=== PATIENT | male | born 1965 | race African-American/Black ===

== ENCOUNTER 2024-03-11 21:11 | Inpatient (IN) | payer OTHER, SELFPAY ==
--- NOTE | 2024-03-11 | ECG_ITS ---
Test Reason : TACARDYA Blood Pressure : / mmHG Vent. Rate : 124 BPM Atrial Rate : 124 BPM P-R Int : 154 ms QRS Dur : 076 ms QT Int : 316 ms P-R-T Axes : 031 013 038 degrees QTc Int : 453 ms Sinus tachycardia Otherwise normal ECG No previous ECGs available Referred By: Generic ED Physician Electronically Signed By:RONNIE MARES MD
--- NOTE | ~2024-03-11 | XR_ITS ---
EXAMINATION: XR FOOT, RIGHT CLINICAL INFORMATION: right foot pain, ?infection COMPARISON: None available. TECHNIQUE: AP, lateral, and oblique views of the right foot. FINDINGS: Soft tissue irregularity of the great toe with subtle cortical erosion and irregularity at the medial aspect of the tuft and distal phalanx concerning for osteomyelitis. No fracture or malalignment. Heel spur. XR/XR foot RT min 3V IMPRESSION: Soft tissue irregularity of the great toe with subtle cortical erosion of the tuft and distal phalanx concerning for osteomyelitis. Electronically signed by: Oswaldo Abraham MD 03/11/2024 10:29 PM [facility]
--- NOTE | ~2024-03-11 | US_ITS ---
EXAMINATION: US NONINVASIVE ASSESSMENT OF THE BILATERAL LOWER EXTREMITY WITH ARTERIAL DUPLEX AND ANKLE BRACHIAL INDICES (ABIS) CLINICAL INFORMATION: Diabetic foot infection COMPARISON: None available. TECHNIQUE: Duplex Doppler techniques with waveform analysis and measurement of velocities in the common femoral, profunda femoris, superficial femoral, popliteal and tibial arteries were performed. In addition, ankle pulse volume recordings, ankle pressure measurements and ankle brachial indices were obtained of the bilateral lower extremity arterial system. The study was performed only at rest. FINDINGS: NONINVASIVE ASSESSMENT OF THE ARTERIES OF BILATERAL LOWER EXTREMITIES WITH ABIs: RIGHT LEG: Ankle-brachial index: 1.11 Ankle PVR: Normal LEFT LEG: Ankle-brachial index: 1.15 Left ankle PVR: Normal JENNI Reference: 0.9 - 1.4 = normal - no significant arterial disease 0.7 - 0.89 = mild peripheral arterial disease 0.51 - 0.69 = moderate peripheral arterial disease 0.50 = severe peripheral arterial disease RIGHT LOWER EXTREMITY DUPLEX ULTRASOUND: Common femoral artery: 119.2 cm/s. Diastolic flow reversal: Present Profunda femoris artery: 87.5 cm/s. Diastolic flow reversal: Present Superficial femoral artery (proximal): 110.8 cm/s. Diastolic flow reversal: Present Superficial femoral artery (mid): 150.6 cm/s. Diastolic flow reversal: Present Superficial femoral artery (distal): 122.2 cm/s. Diastolic flow reversal: Present Popliteal artery (proximal): 123.2 cm/s Diastolic flow reversal: Present Popliteal artery (distal): 93 cm/s Diastolic flow reversal: Present Anterior tibial artery: 77.6 cm/s Diastolic flow reversal: Present Peroneal artery: 49.6 cm/s Diastolic flow reversal: Present Posterior tibial artery: 146.9 cm/s Diastolic flow reversal: Present LEFT LOWER EXTREMITY DUPLEX ULTRASOUND: Common femoral artery: 105.1 cm/s. Diastolic flow reversal: Present Profunda femoris artery: 77 cm/s. Diastolic flow reversal: Present Superficial femoral artery (proximal): 89.1 cm/s. Diastolic flow reversal: Present Superficial femoral artery (mid): 119.3 cm/s. Diastolic flow reversal: Present Superficial femoral artery (distal): 106.7 cm/s. Diastolic flow reversal: Present Proximal popliteal artery: 104.2 cm/s Diastolic flow reversal: Present Distal popliteal artery: 85.4 cm/s Diastolic flow reversal: Present Anterior tibial artery: 103.8 cm/s Diastolic flow reversal: Present Peroneal artery: 66.8 cm/s Diastolic flow reversal: Present Posterior tibial artery: 91.2 cm/s Diastolic flow reversal: Present US/US arterial duplex BI w/ JENNI IMPRESSION: The JENNI on the right is 1.11 and on the left is 1.15. There is no PVR evidence to suggest hemodynamically significant arterial disease. There is no sonographic evidence of hemodynamically significant disease. Electronically signed by: Anil Kingston MD 03/14/2024 01:17 AM EST
--- NOTE | ~2024-03-11 | US_ITS ---
EXAMINATION: US RETROPERITONEAL LIMITED (RENAL ONLY) CLINICAL INFORMATION: LAMAR. COMPARISON: None available. TECHNIQUE: Real-time imaging of the kidneys. FINDINGS: RIGHT KIDNEY: 12.5 x 5.6 x 6.2 cm (SAG x AP x TRV). The kidney is normal in size, contour, and echogenicity. Renal cortical thickness is normal. No calculi or focal parenchymal lesions. No hydronephrosis. Trace amount of free fluid around the kidney. LEFT KIDNEY: 11.7 x 7.1 x 5.9 cm (SAG x AP x TRV). The kidney is normal in size, contour, and echogenicity. Renal cortical thickness is normal. No calculi or focal parenchymal lesions. No hydronephrosis. Trace amount of free fluid around the kidney. Nonspecific US/US renal BI IMPRESSION: 1. No ultrasound evidence of renal obstruction or hydronephrosis. 2. Trace amount of free fluid around the kidneys nonspecific. Electronically signed by: Ronnie Gilman MD 03/13/2024 03:44 PM [facility]
--- NOTE | ~2024-03-11 | CT_ITS ---
EXAMINATION: CT FOOT WITH CONTRAST, RIGHT CLINICAL INFORMATION: Foot infection, osteomyelitis. COMPARISON: X-ray 03/11/2024. TECHNIQUE: Axial imaging. Sagittal and coronal reconstructions. [address] examination was performed using dose optimization techniques as appropriate, variously including the following: *Automated exposure control *Adjustment of mA and/or kV according to patient size (this includes techniques or standardized protocols for targeted exams where dose is matched to indication/reason for exam; i.e. extremities or head) *Use of iterative reconstruction technique DLP: 167 mGy-cm FINDINGS: Plantar soft tissue irregularity/ulceration of the plantar aspect of the distal first toe. This foci of air in the soft tissues. There is soft tissue edema/cellulitis. No abscess is seen. There is cortical bony irregularity/erosive changes in the first distal phalanx, suspicious for osteomyelitis. There is foci of air seen along the dorsal aspect of the fifth toe. No definitive erosive or destructive changes are identified in the underlying bone. There is a circumferential soft tissue swelling with edema/cellulitis in the skin and subcutaneous/soft tissues. There is a more confluent hypoattenuated focus along the dorsal skin/soft tissues of the foot, measuring 5.3 x 0.8 x 2.6 cm (transverse, AP, length) (image 9:89, 7:94). Similar focus seen in the plantar surface of the foot measuring 3.6 cm transverse, 0.6 cm AP, 2.5 cm in length. This could represent a soft tissue bleb, inflammatory or infectious process. Clinically correlate. Second tarsometatarsal joint osteoarthritis. No acute fracture is seen. Plantar calcaneal spur. Medial talar dome subchondral cysts and sclerosis, could reflect sequela of degenerative changes versus osteochondral lesion. No loose unstable osteochondral fragments are seen. Hypodense focus in the deep soft tissues of the plantar midfoot, measuring approximately 3.5 cm transverse, 0.7 cm AP, 3.3 cm in length (series 9:[id number], series 7:38-52). This is nonspecific in nature, could represent fluid in this region, inflammatory or infectious process. An abscess in the appropriate clinical circumstance cannot be excluded. CT/CT foot RT w IV con IMPRESSION: * Soft tissue irregularity of the distal great toe, with air in the soft tissues. Abnormal findings in the first distal phalanx, suspicious for osteomyelitis. * Foci of air along the dorsal aspect of the fifth toe. No definitive osteomyelitis is evident by CT in the underlying bones. * Extensive soft tissue swelling and subcutaneous edema/cellulitis, more prominent in the dorsal aspect of foot. * Confluent hypodense focus in the dorsal soft tissues along the skin measuring up to 5.3 cm, in the plantar soft tissues along the skin measuring up to 3.6 cm. Differential considerations include soft tissue bleb, inflammatory or infectious process. * Hypodense focus in the deep tissues/interfascial plane of the midfoot measuring 2.5 x 0.7 x 3.3 cm. Differential considerations include fluid, inflammatory, infectious process, abscess. Clinically correlate. The report will be called to the ordering clinician by a [facility] Physician Academic Services Coordinator. * Medial talar dome findings could reflect degenerative changes versus osteochondral lesion. Electronically signed by: Elias Emery MD 03/12/2024 12:56 PM [facility]
[2024-03-11 21:14] VITALS: BP 167/107; PULSE 141; RESP 20; TEMP 36.4; O2SAT 98; BMI 33.4
[2024-03-11 21:42] LABS: MANUAL DIFF FLAG NO
[2024-03-11 21:44] LABS: Basophils Absolute Auto 0.2 X10*3/uL (0.0-0.2); Basophils Percent Auto 0.4 % (0-2); Hematocrit 35.4 % (42.0-52.0); Hemoglobin 12.4 g/dl (14.0-18.0); Imm Gran Abs Auto 1.64 X10*3/uL (0.00-0.03); Imm Gran Pct Auto 3.9 % (0.0-0.4); Lymphocytes Absolute Auto 1.4 X10*3/uL (1.2-4.9); Lymphocytes Percent Auto 3.4 % (20-40); Mean Corpuscular Hemoglobin 27.3 pg (27.0-33.0); Mean Platelet Volume 8.9 fL (9.4-12.4); Monocytes Absolute Auto 2.5 X10*3/uL (0.1-1.2); Monocytes Percent Auto 6.1 % (2-11); Neutrophils Absolute Auto 35.9 x10*3/uL (2.0-8.3); Neutrophils Percent Auto 86.2 % (45-73); Platelet Count 487 X10*3/uL (160-400); Red Blood Count 4.54 X10*6/uL (4.60-5.80); Red Cell Distribution Width 12.9 % (11.0-16.0); SCAN SMEAR FLAG 1
[2024-03-11 21:48] LABS: White Blood Count 41.6 X10*3/uL (4.8-10.8)
[2024-03-11 21:50] LABS: INTERNATIONAL NORM RATIO 1.3 (0.9-1.1); Prothrombin Time 15.6 SEC (10.9-12.4)
[2024-03-11] MEDS: Lactated Ringers 1,000 ML 999 ML IV (21:57)
[2024-03-11] MEDS: Acetaminophen 325 MG TABLET 650 MG PO (22:00)
[2024-03-11 22:03] VITALS: BP 161/85; PULSE 110; RESP 15; TEMP 37.1; O2SAT 99
[2024-03-11 22:06] LABS: Alanine Aminotransferase 15 U/L (0-40); Alkaline Phosphatase 261 U/L (39-117); Anion Gap 17 (12-20); Aspartate Amino Transferase 44 U/L (5-37); Bilirubin Total 2.1 mg/dL (0.0-1.0); Blood Urea Nitrogen 21 mg/dL (9-16); Calcium 9.5 mg/dL (8.4-10.2); Carbon Dioxide 25 mmol/L (22-29); Chloride 89 mmol/L (96-108); Creatinine Clr Calc Pharmacy 68.6; Estimated Glomerular Filt Rate 56; Glucose Random 418 mg/dL (60-115); Sodium 127 mmol/L (135-145); Total Protein 7.5 g/dL (6.5-8.0)
[2024-03-11 22:07] LABS: Lactic Acid 2.4 mmol/L (0.5-2.0)
[2024-03-11 22:08] LABS: Troponin-I High Sensitivity 7.1 ng/L (<3.5-35.0)
[2024-03-11] MEDS: Piperacillin Sodium/Tazobactam 3.375 GM in 0.9 % Sodium Chloride 50 ML IV (22:08)
--- NOTE | 2024-03-11 22:11 | PC.NURSE ---
pt brought back from waiting room, a&ox4, respirations even and unlabored. pt reporting x1 week ago he developed a blister on her right toe, reports as the week went on his foot started to become swollen. within the last 3 days, he developed increased redness, swelling and pain with walking. on arrival to room, pt noted to have bandage on the right toe, bandage noted to have yellow drainage. bandage removed, foot noted to have foul odor, drainage and infected skin, foot noted to be red, swollen and with a split skin on the bottom. pt reports pain to touch. pedal pulses noted with doppler. at bedside to assess pt, no sepsis alert called. 18G placed in left ac and 20G placed in right hand, labs obtained, vss. Fluids and antibiotics administered per jun.
--- NOTE | 2024-03-11 22:13 | MHC.EDTECH ---
Patient ekg taken and was read by Provider ,2nd sets of blood culture drawn and sent to lab .
--- NOTE | 2024-03-11 22:15 | ED.EXTPRO ---
HPI - Extremity Problem General Chief complaint: Extremity Problem Stated complaint: severe R ft infect Time Seen by Provider: 03/11/24 21:40 Source: patient Mode of arrival: ambulatory Limitations: no limitations History of Present Illness ED Provider: KATHLEEN WILKINS Narrative: 59 yo male no PMH but he had not gone to the doctors in years - he tells me his R foot has a chronic bunion on it. He states it hurts to walk about a week ago he noted he had a blister on the R toe and it has just worsened over the past few days. He denies n/v fevers. He states it started to hurt a lot. He denies puncture wounds, he tells me he can feel his feet. He states he does not have DM MD Complaint: extremity pain Onset (ago): week(s) (1) Pain Consistency: constant Location: right and lower extremity Quality: aching Radiation: proximal Relieving factors: immobilization Exacerbating factors: weight bearing, walking and palpation Associated symptoms: other (notes he has open wounds on the feet) Related Data Allergies Allergy/AdvReac Type Severity Reaction Status Date / Time No Known Allergies Allergy Verified 03/11/24 21:17 Review of Systems Review of Systems: Constitutional : No Fever, No Chills ENT/Mouth : No Ear Pain, No Hoarseness, No sore throat Eyes: No Eye Pain, No Swelling, No Redness, No Foreign Body Cardiovascular : No Chest Pain, No SOB Respiratory : No Cough, No Dyspnea Gastrointestinal : No Nausea, No Vomiting, No Diarrhea, No abdominal Pain Genitourinary : No Dysuria, No Hematuria Musculoskeletal : positive joint pain, No Myalgias, No Joint Swelling Skin : pos Skin lacerations, pos rash Neuro : No Weakness, No Numbness, No Loss of Consciousness, No Dizziness, No Headache Psych : No Anxiety/Panic, No Depression Heme/Lymph: no easy bruising, no Lymphadenopathy Endocrine : No Polyuria, No Polydipsia All other systems reviewed and are negative [facility]LY [facility] Past Medical History Medical History (Updated 03/11/24 @ 22:53 by Matt Rodriguez MD) No pertinent past medical history Social History Social History Household Members: None Housing: Apartment Do you presently have visiting nurse or other home services: No Alcohol intake: current Patient Tobacco Use Status: Current everyday Tobacco user Tobacco use type: Cigarette e-Cigarette/Vaping Use: Never Used Substance Use Type: Marijuana Physical Exam Vital Signs: Vital Signs: Last Vital Signs Temp 98.6 F 03/12/24 01:00 Pulse 92 03/12/24 01:00 Resp 16 03/12/24 01:00 BP 132/70 03/12/24 01:00 Pulse Ox 96 03/12/24 01:00 O2 Del Method Room Air 03/12/24 01:00 BMI result Body Mass Index 33.4 Appearance: Alert. Oriented X3. No acute distress. Eyes: Pupils equal, round and reactive to light. ENT: Pharynx normal. Neck: Normal inspection. Neck supple. CVS: tachycardic heart rate and rhythm. Pulses normal. Respiratory: No respiratory distress. Breath sounds normal. Abdomen: Soft and nontender. Skin: Skin warm and dry. Normal skin color. Normal skin turgor. Extremities: No lower extremity edema. R foot has skin sloughed R great toe no bone exposed, foot itself is red hot and swollen I can doppler his DP pulse, he has no crepitus and pain is not out of proportion there are slits on the bottom of the foot that are weeping SS fluid. There are dark areas on great toe, bottom of foot. He has no extension up the calf Neuro: Oriented X 3. No motor deficit. No sensory deficit. Medications Administered Generic Name Dose Route Start Last Admin Trade Name Freq PRN Reason Stop Dose Admin Enoxaparin Sodium 40 mg 03/11/24 23:00 03/11/24 22:59 Enoxaparin Sodium 40 Mg/0.4 Ml Syringe SUBCUT 40 mg Q24H JERI Administration Insulin Glargine 20 unit 03/11/24 22:50 03/11/24 22:59 Insulin Glargine,Hum.Rec.Anlog 100 Unit/Ml 10 Ml Vial SUBCUT 20 unit BEDTIME JERI Administration Melatonin 6 mg 03/11/24 22:47 03/12/24 01:54 Melatonin 3 Mg Tablet PO 6 mg BEDTIME PRN Administration Insomnia Sodium Chloride 3 ml 03/12/24 00:00 03/12/24 00:00 0.9 % Sodium Chloride Flush 3 Ml Syringe IVFLUSH Not Given QSHIFT JERI Discontinued Medications Generic Name Dose Route Start Last Admin Trade Name Freq PRN Reason Stop Dose Admin Acetaminophen 650 mg 03/11/24 21:47 03/11/24 22:00 Acetaminophen 325 Mg Tablet PO 03/11/24 21:48 650 mg ONCE ONE Administration Piperacillin Sod/Tazobactam 50 mls @ 100 mls/hr 03/11/24 21:47 03/11/24 22:38 Sod 3.375 gm/ Sodium Chloride IV 03/11/24 22:16 Infused ONCE ONE Infusion Vancomycin HCl 2,000 mg in 500 mls @ 250 mls/hr 03/11/24 21:47 03/12/24 00:59 Vancomycin/Ns IV 03/11/24 23:46 Infused ONCE ONE Infusion Lactated Ringer's 1,000 mls @ 999 mls/hr 03/11/24 21:47 03/11/24 23:56 Lr IV 03/11/24 22:47 Infused .Q1H1M ONE Infusion Clindamycin Phosphate 900 mg in 50 mls @ 50 mls/hr 03/11/24 21:52 03/11/24 23:37 Cleocin IV 03/11/24 22:51 Infused ONCE ONE Infusion Piperacillin Sod/Tazobactam 100 mls @ 200 mls/hr 03/11/24 04:00 03/11/24 23:41 Sod 4.5 gm/ Sodium Chloride IV Not Given Q6H JERI Influenza Virus Vaccine 0.5 ml 03/12/24 01:26 03/12/24 01:54 Flu Vacc [id number](6mos Up)/Pf 0.5 Ml Syringe IM 03/12/24 01:27 0.5 ml .ONCE ONE Administration Medical Decision Making Medical Decision Making MDM Narrative: 59 yo male with no PMH because he doesn't go to the doctor who comes in with c/o R bunion pain that worsened over a week.... now with his foot appearing very infected. He has dopplerable pulses, he has no crepitu and he is not in pain which makes me think necrotizing infection is less. He likely has cellulitis, osteo, abscess but I am not going to drain his foot he needs to see surgery for this. I have ordered labs, cultures, infl markers, CPK and lactic acid he was started on fluids and I plan on starting bs abx including vanco zosyn clindamycin. He needs admission and close monitoring of his foot for progression. I will let surgery know about the admit. Differential Diagnosis Differential Diagnoses: The differential diagnosis associated with the presentation includes osteo, cellulitis, abscess Admission/Observation Consideration of admission/observation: Escalation of care including admission/observation considered admit for further work up Consult Healthcare Provider Management of the patient was discussed with: Hospitalist will admit Lab Data MDM Lab Attestation statement: I reviewed the patient's lab results. Na corrects to 132 03/11/24 21:36 03/11/24 21:36 Labs: Lab Results 03/11/24 03/11/24 Range/Units 21:36 22:08 WBC 41.6 H* (4.8-10.8) X10*3/uL RBC 4.54 L (4.60-5.80) X10*6/uL Hgb 12.4 L (14.0-18.0) g/dl Hct 35.4 L (42.0-52.0) % MCV 78.0 L (80.0-98.0) fL MCH 27.3 (27.0-33.0) pg MCHC 35.0 (31.0-36.0) g/dl RDW 12.9 (11.0-16.0) % Plt Count 487 H (160-400) X10*3/uL MPV 8.9 L (9.4-12.4) fL Immature Gran % (Auto) 3.9 H (0.0-0.4) % Neut % (Auto) 86.2 H (45-73) % Lymph % (Auto) 3.4 L (20-40) % [place] % (Auto) 6.1 (2-11) % Eos % (Auto) 0.0 (0-4) % Baso % (Auto) 0.4 (0-2) % Lymph # (Auto) 1.4 (1.2-4.9) X10*3/uL [place] # (Auto) 2.5 H (0.1-1.2) X10*3/uL Eos # (Auto) 0.0 (0.0-0.4) X10*3/uL Baso # (Auto) 0.2 (0.0-0.2) X10*3/uL Abs Immat Gran (auto) 1.64 H (0.00-0.03) X10*3/uL Absolute Neuts (auto) 35.9 H (2.0-8.3) x10*3/uL Absolute Nucleated RBC 0.000 (0.0-0.012) X10*3/uL Nucleated RBC % (auto) 0.0 (0.0-0.2) /100WBC ESR 85 H (0-15) MM/HR PT 15.6 H (10.9-12.4) SEC INR 1.3 H (0.9-1.1) Sodium 127 L (135-145) mmol/L Potassium 4.0 (3.3-5.1) mmol/L Chloride 89 L (96-108) mmol/L Carbon Dioxide 25 (22-29) mmol/L Anion Gap 17 (12-20) BUN 21 H (9-16) mg/dL Creatinine 1.31 (0.5-1.4) mg/dL Estim Creat Clear Calc 68.6 Estimated GFR 56 Random Glucose 418 H* (60-115) mg/dL Lactic Acid 2.4 H* (0.5-2.0) mmol/L Calcium 9.5 (8.4-10.2) mg/dL Total Bilirubin 2.1 H (0.0-1.0) mg/dL AST 44 H (5-37) U/L ALT 15 (0-40) U/L Alkaline Phosphatase 261 H (39-117) U/L Total Creatine Kinase 71 (38-174) U/L Troponin I High Sens 7.1 (<3.5-35.0) ng/L C-Reactive Protein 40.24 H (< or = 0.50) mg/dL Total Protein 7.5 (6.5-8.0) g/dL Albumin 3.0 L (3.5-5.0) g/dL Independent Interpretation I performed an independent interpretation of an: EKG and Plain X-Ray (osteo) Interpretation: Rate: 124 Rhythm: sinus tachycardia [place]: normal Normal P waves. Normal SATINDER. Normal QRS complex. ST T wave : normal no TANGELA qTC: 453 prior studies: no acute ischemia The study has been interpreted contemporaneously by me. . Radiology Impression Discussion of test interpretation with radiology: I have reviewed the radiologist's reading. Discharge Plan Discharge Clinical Impression: Abscess Cellulitis Qualifiers: Site of cellulitis: extremity Site of cellulitis of extremity: lower extremity Laterality: right Qualified Code(s): L03.115 - Cellulitis of right lower limb Patient Disposition: Admitted As Inpatient Interventions: Admission Worksheet (ED) Last Done: 03/12/24 00:14 Discharge Date/Time: 03/12/24 01:28
[2024-03-11 22:25] LABS: C Reactive Protein 40.24 mg/dL (< or = 0.50)
[2024-03-11 22:32] LABS: Erythrocyte Sedimentation Rate 85 MM/HR (0-15)
[2024-03-11] MEDS: vancomycin/NS 2,000 MG/500 ML PLAST..BAG 250 MG IV (22:41)
--- NOTE | 2024-03-11 22:48 | PM.IMHP ---
History of Present Illness Date of Service: 03/11/24 Chief Complaint: Right foot infection This is a 59-year-old male with no pertinent past medical history and not on prescription medications who presents to the emergency department for evaluation of right foot infection. Patient states he does not take any prescription medications and has not seen a doctor in many years. He 1st noticed redness and blister over his right foot and great toe about 10 days ago. Subsequently noticed that the redness was worsening and the right foot had multiple blisters which burst. Eventually there was purulent drainage from the right foot along with warmth and erythema. States he has pain with ambulation. No fever, chills, chest pain, palpitations, nausea, vomiting, abdominal pain, shortness of breath, changes in urinary or bowel habits. In the emergency department, x-ray concerning for osteomyelitis. Blood glucose found to be elevated Review of Systems Constitutional: Constitutional: Reports no additional constitutional complaints Cardiovascular: Cardiovascular: Reports no additional cardiovascular complaints Respiratory: Respiratory: Reports no additional respiratory complaints Gastrointestinal: Gastrointestinal: Reports no additional gastrointestinal complaints Genitourinary: Genitourinary: Reports no additional male genitourinary complaints Musculoskeletal: Musculoskeletal: Reports arthralgias and Reports joint swelling [facility] Medical History (Updated 03/11/24 @ 22:53 by aMtt Rodriguez MD) No pertinent past medical history Pertinent family history: No family history of early CAD Social History Alcohol intake: current Smoked in Last 30 Days: Yes Use of substances other than those prescribed or required for medical reasons: No Advance Directives: No Advance Directives Information Provided: No Meds Allergies Allergy/AdvReac Type Severity Reaction Status Date / Time No Known Allergies Allergy Verified 03/11/24 21:17 Active Medications: Current Medications Vancomycin HCl (Vancomycin/Ns) 2,000 mg in 500 mls @ 250 mls/hr IV ONCE ONE Stop: 03/11/24 23:46 Last Admin: 03/11/24 22:41 Dose: 250 mls/hr Clindamycin Phosphate (Cleocin) 900 mg in 50 mls @ 50 mls/hr IV ONCE ONE Stop: 03/11/24 22:51 Physical Exam Vital Signs and Narrative: Vital Signs: Last Vital Signs Temp 98.8 F 03/11/24 22:03 Pulse 110 H 11/22/24 22:03 Resp 15 03/11/24 22:03 BP 161/85 H 03/11/24 22:03 Pulse Ox 99 03/11/24 22:03 O2 Del Method Room Air 03/11/24 22:03 BMI result Body Mass Index 33.4 Middle-aged male lying in bed in no distress Neck supple, no JVD Regular rate and rhythm, S1-S2 heard Regular breath sounds bilaterally, no wheezing or crackles appreciated Abdomen soft nontender, no guarding, no rigidity Patient is awake, alert and oriented to self, place, time and person ; no focal motor deficit Psych: Normal mood Right foot with erythema, purulent drainage, warmth (as pictured below). No crepitus Skin: Other: Results Labs 03/11/24 21:36 03/11/24 21:36 Labs: Laboratory Results - last 24 hr 03/11/24 03/11/24 21:36 22:08 MCV 78.0 L MCH 27.3 MCHC 35.0 RDW 12.9 Plt Count 487 H MPV 8.9 L Immature Gran % (Auto) 3.9 H Neut % (Auto) 86.2 H Lymph % (Auto) 3.4 L [place] % (Auto) 6.1 Eos % (Auto) 0.0 Baso % (Auto) 0.4 Lymph # (Auto) 1.4 [place] # (Auto) 2.5 H Eos # (Auto) 0.0 Baso # (Auto) 0.2 Abs Immat Gran (auto) 1.64 H Absolute Neuts (auto) 35.9 H Absolute Nucleated RBC 0.000 Nucleated RBC % (auto) 0.0 ESR 85 H PT 15.6 H INR 1.3 H Anion Gap 17 Estim Creat Clear Calc 68.6 Estimated GFR 56 Random Glucose 418 H* Lactic Acid 2.4 H* Calcium 9.5 Total Bilirubin 2.1 H AST 44 H ALT 15 Alkaline Phosphatase 261 H Total Creatine Kinase 71 Troponin I High Sens 7.1 C-Reactive Protein 40.24 H Total Protein 7.5 Albumin 3.0 L Imaging Radiologist's Impressions: Impressions Foot X-Ray 03/11/24 21:45 IMPRESSION: Soft tissue irregularity of the great toe with subtle cortical erosion of the tuft and distal phalanx concerning for osteomyelitis. Electronically signed by: Oswaldo Abraham MD 03/11/2024 10:29 PM [facility] Assessment and Plan (1) Sepsis: Status: Acute (2) Foot osteomyelitis, right: Status: Acute (3) Cellulitis: Qualifiers: Laterality: right Site of cellulitis: extremity Site of cellulitis of extremity: lower extremity Qualified Code(s): L03.115 - Cellulitis of right lower limb Status: Acute (4) Hyperglycemia: Status: Acute Plan This is a 59-year-old male with no pertinent past medical history and not on prescription medications who presents to the emergency department for evaluation of right foot infection. #. Severe sepsis due to right foot purulent cellulitis and osteomyelitis: Resuscitated with IV crystalloids. Lactic acid and blood culture obtained. Initiating empiric IV vancomycin and Zosyn. Obtaining CT of the right foot to delineate underlying anatomy. General surgery and Infectious Disease consult pending #. Acute lactic acidosis due to sepsis #. Hyperglycemia: Initiating basal plus insulin regimen. A1c pending #. Pseudohyponatremia due to hyperglycemia Med rec pending DVT prophylaxis: Lovenox Full code Admit as inpatient and will require two night minimum hospital stay for IV antibiotics (as above), which is not possible in a lesser acute setting. Specialist consult pending Quality Stroke Does the patient have a stroke diagnosis?: No VTE Prior VTE?: No VTE Risk Level:: Medical - moderate - high VTE Device Contraindication: Treatment Not Indicated VTE Drug Contraindication: N/A - Med Ordered
[2024-03-11] MEDS: Clindamycin Phosphate/D5W 900 MG/50 ML PIGGYBACK 50 MG IV (22:55)
[2024-03-11] MEDS: Insulin Glargine,Hum.rec.anlog 100 UNIT/ML 10 ML VIAL 20 UNIT SUBCUT (22:59)
[2024-03-11] MEDS: Enoxaparin Sodium 40 MG/0.4 ML SYRINGE SUBCUT (22:59)
[2024-03-11 23:41] LABS: Reflex Lactate? Lactic Acid Added
[2024-03-12] VITALS (9 sets, daily range): BP systolic 119–162; BP diastolic 66–86; PULSE 87–95; RESP 16–20; TEMP 36.1–37.3; O2SAT 94–97; BMI 32.5
[2024-03-12 00:15] LABS: ~Lactic Acid-LAB USE ONLY 1.3 mmol/L (0.5-2.0)
[2024-03-12] MEDS: Melatonin 3 MG TABLET 6 MG PO (01:54)
[2024-03-12] MEDS: Flu Vacc TS2024-25(6mos up)/PF 0.5 ML SYRINGE IM (01:54)
[2024-03-12 03:19] LABS: Estimated Average Glucose 289 mg/dL; Hemoglobin A1C 302.5084 umol/L; Hemoglobin A1c % 11.7 % (<6.0); Total Hemoglobin (HGBA1C) 2912.5258 umol/L
[2024-03-12] MEDS: Piperacillin Sodium/Tazobactam 4.5 GM in 0.9 % Sodium Chloride 100 ML IV ×4 (03:53→21:31)
--- NOTE | 2024-03-12 06:38 | PHA.PROG ---
Admission Date/Time: March 11, 2024 22:47 Indication: Sepsis Weight in k.9 kg Adjusted body weight in Kg: [place] body weight in Kg: Obesity Dosing Indication % IBW: Serum Creatinine - Last 168 Hours 03/11/24 21:36 Creatinine 1.31 Estimated CrCl and GFR - Last 168 Hours 03/11/24 21:36 Estim Creat Clear Calc 68.6 Estimated GFR 56 Vancomycin Loading Dose: 2000 mg Current Vancomycin Dosing Regimen: 750 mg q12h Vancomycin Monitoring using AUC goal of 400 - 600 range with trough as surrogate marker: 433 mg/L Date and Time for next Vancomycin Level to be drawn: 03/13/24 @0900 Pharmacist Comments on Vancomycin Plan: Will start a regimen of 750mg q12h today, projected steady state trough is 14.7 mg/L. Level before 4th dose. Vancomycin dosing will take advantage of [employer] as a clinical decision support tool that uses Bayesian modeling to calculate individual patient's pharmacokinetic parameters and forecast the patient's drug concentration time course with the target goal AUC 24 range of 400 - 600 mg/L/hr.
[2024-03-12 07:58] LABS: Glucose, Whole Blood 250 mg/dL (60-115)
[2024-03-12] MEDS: Insulin Lispro 100 UNIT/ML 3 ML VIAL SUBCUT ×3 (08:04→20:30)
[2024-03-12] MEDS: 0.9 % Sodium Chloride Flush 3 ML SYRINGE IVFLUSH ×2 (08:05→16:48)
[2024-03-12 08:08] LABS: Basophils Absolute Auto 0.2 X10*3/uL (0.0-0.2); Basophils Percent Auto 0.4 % (0-2); Eosinophils Absolute Auto 0.1 X10*3/uL (0.0-0.4); Eosinophils Percent Auto 0.1 % (0-4); Hematocrit 30.6 % (42.0-52.0); Hemoglobin 10.7 g/dl (14.0-18.0); Imm Gran Abs Auto 1.28 X10*3/uL (0.00-0.03); Imm Gran Pct Auto 3.4 % (0.0-0.4); Lymphocytes Percent Auto 5.2 % (20-40); MANUAL DIFF FLAG SCAN; Mean Corpuscular Hemoglobin 27.4 pg (27.0-33.0); Mean Corpuscular Volume 78.5 fL (80.0-98.0); Mean Platelet Volume 9.3 fL (9.4-12.4); Monocytes Absolute Auto 2.4 X10*3/uL (0.1-1.2); Monocytes Percent Auto 6.2 % (2-11); Neutrophils Absolute Auto 32.3 x10*3/uL (2.0-8.3); Neutrophils Percent Auto 84.7 % (45-73); Platelet Count 441 X10*3/uL (160-400); Red Cell Distribution Width 12.9 % (11.0-16.0); SCAN SMEAR FLAG 1
--- NOTE | 2024-03-12 08:24 | PHA.MEDREC ---
Addendum entered by Ashley Patrick RPh 03/12/24 08:43: Med rec reviewed. Original Note: Pharmacy Consult ? Medication Reconciliation Pharmacy has completed the medication reconciliation. Spoke with patient to confirm. Uses Aleve prn. He uses 2 different types of herbal mushrooms as needed for immunity.
[2024-03-12 08:25] LABS: Anion Gap 16 (12-20); Blood Urea Nitrogen 25 mg/dL (9-16); Calcium 9.3 mg/dL (8.4-10.2); Carbon Dioxide 26 mmol/L (22-29); Chloride 91 mmol/L (96-108); Creatinine Clr Calc Pharmacy 58.7; Estimated Glomerular Filt Rate 47; Glucose Random 285 mg/dL (60-115); Potassium 4.6 mmol/L (3.3-5.1); Sodium 128 mmol/L (135-145)
[2024-03-12 08:37] LABS: White Blood Count 38.2 X10*3/uL (4.8-10.8)
[2024-03-12 08:38] LABS: SLIDE REVIEW VERIFIED
[2024-03-12] MEDS: iohexoL 350 MG/ML 100 ML INFUS..BTL IV (09:09)
--- NOTE | 2024-03-12 09:23 | P.PNIM_ITS ---
Subjective Subjective Date of Service: 03/12/24 Interval History: aching of feet no hx diabetes but hasn't seen a doctor in over 10 yr no fever Review of Systems Review of Systems: Yes all other systems are reviewed and are negative Physical Exam 2 Vital Signs: Vital Signs: Last Vital Signs Temp 97.0 F 03/12/24 07:55 Pulse 90 03/12/24 07:55 Resp 16 03/12/24 07:55 BP 137/72 03/12/24 07:55 Pulse Ox 97 03/12/24 07:55 O2 Del Method Room Air 03/12/24 07:55 BMI result Body Mass Index 32.5 Gen: in no acute distress HEENT: sclera anicteric, moist mucus membranes Neck: supple Lungs: clear to auscultation bilaterally Heart: regular rate and rhythm, no murmurs Abd: soft, non-tender, non-distended Ext: no edema Skin: warm/well-perfused, R foot with erythema + discoloration + induration, purulent medial great toe ulcer Neuro: alert and oriented x3, no focal findings Psych: appropriate affect Objective Data Active Medications Acetaminophen (Acetaminophen 325 Mg Tablet) 650 mg PO Q6H PRN PRN Reason: Pain, Mild (Pain Scale 1-3), fever or headache Calcium Carbonate (Calcium Carbonate 750 Mg Tab.Chew) 750 mg PO Q4H PRN PRN Reason: Heartburn Enoxaparin Sodium (Enoxaparin Sodium 40 Mg/0.4 Ml Syringe) 40 mg SUBCUT Q24H [facility] Last Admin: 03/11/24 22:59 Dose: 40 mg Documented By: LUZ Glucose (Glucose Gel 15 Gm Gel..Gram.) 15 gm PO Q15M PRN; Protocol PRN Reason: per Hypoglycemia Standing Ord. Dextrose (D10) 250 mls @ 750 mls/hr IV Q15M PRN; Protocol PRN Reason: per Hypoglycemia Standing Ord. Piperacillin Sod/Tazobactam (Sod 4.5 gm/ Sodium Chloride) 100 mls @ 200 mls/hr IV Q6H [facility] Last Infusion: 03/12/24 04:23 Dose: Infused Documented By: JEFERSON Vancomycin HCl 750 mg/ Sodium (Chloride) 265 mls @ 265 mls/hr IV Q12H [facility] Insulin Glargine (Insulin Glargine,Hum.Rec.Anlog 100 Unit/Ml 10 Ml Vial) 20 unit SUBCUT BEDTIME [facility] Last Admin: 03/11/24 22:59 Dose: 20 unit Documented By: LUZ Insulin Human Lispro (Insulin Lispro 100 Unit/Ml 3 Ml Vial) 0 unit SUBCUT QIDACHS [facility]; Protocol Last Admin: 03/12/24 08:04 Dose: 4 unit Documented By: CHACORTA Magnesium Hydroxide (Milk Of Magnesia 30 Ml Oral.Susp) 30 ml PO DAILY PRN PRN Reason: Constipation Melatonin (Melatonin 3 Mg Tablet) 6 mg PO BEDTIME PRN PRN Reason: Insomnia Last Admin: 03/12/24 01:54 Dose: 6 mg Documented By: JEFERSON Ondansetron HCl (Ondansetron Hcl 4 Mg/2 Ml Vial) 4 mg IVPUSH Q8H PRN PRN Reason: Nausea and Vomiting Pharmacy Consult (Consult Rx Vancomycin Dosing) 1 each MISCELLANE DAILY PRN PRN Reason: Consult order Sodium Chloride (0.9 % Sodium Chloride Flush 3 Ml Syringe) [facility] Last Admin: 03/12/24 08:05 Dose: 3 ml Documented By: CHACORTA Labs 03/12/24 06:21 03/12/24 06:21 Labs: Laboratory Results - last 24 hr 03/11/24 03/11/24 03/11/24 21:36 22:08 23:13 MCV 78.0 L MCH 27.3 MCHC 35.0 RDW 12.9 Plt Count 487 H MPV 8.9 L Immature Gran % (Auto) 3.9 H Neut % (Auto) 86.2 H Lymph % (Auto) 3.4 L Barbour % (Auto) 6.1 Eos % (Auto) 0.0 Baso % (Auto) 0.4 Lymph # (Auto) 1.4 Barbour # (Auto) 2.5 H Eos # (Auto) 0.0 Baso # (Auto) 0.2 Abs Immat Gran (auto) 1.64 H Absolute Neuts (auto) 35.9 H Absolute Nucleated RBC 0.000 Nucleated RBC % (auto) 0.0 Smear Tech's Comments ESR 85 H PT 15.6 H INR 1.3 H Anion Gap 17 Estim Creat Clear Calc 68.6 Estimated GFR 56 POC Glucose Random Glucose 418 H* Estimat Average Glucose 289 Hemoglobin A1c % 11.7 H Lactic Acid 2.4 H* Lactic Acid F/U @ 2Hr Calcium 9.5 Total Bilirubin 2.1 H AST 44 H ALT 15 Alkaline Phosphatase 261 H Total Creatine Kinase 71 Troponin I High Sens 7.1 C-Reactive Protein 40.24 H Total Protein 7.5 Albumin 3.0 L 03/11/24 03/12/24 03/12/24 23:56 06:21 07:53 MCV 78.5 L MCH 27.4 MCHC 35.0 RDW 12.9 Plt Count 441 H MPV 9.3 L Immature Gran % (Auto) 3.4 H Neut % (Auto) 84.7 H Lymph % (Auto) 5.2 L Barbour % (Auto) 6.2 Eos % (Auto) 0.1 Baso % (Auto) 0.4 Lymph # (Auto) 2.0 Barbour # (Auto) 2.4 H Eos # (Auto) 0.1 Baso # (Auto) 0.2 Abs Immat Gran (auto) 1.28 H Absolute Neuts (auto) 32.3 H Absolute Nucleated RBC 0.000 Nucleated RBC % (auto) 0.0 Smear Tech's Comments VERIFIED ESR PT INR Anion Gap 16 Estim Creat Clear Calc 58.7 Estimated GFR 47 POC Glucose 250 H Random Glucose 285 H Estimat Average Glucose Hemoglobin A1c % Lactic Acid Lactic Acid F/U @ 2Hr 1.3 Calcium 9.3 Total Bilirubin AST ALT Alkaline Phosphatase Total Creatine Kinase Troponin I High Sens C-Reactive Protein Total Protein Albumin Microbiology Microbiology Results: Microbiology 03/11/24 21:36 Blood Culture - Preliminary Blood - Venous Assessment and Plan (1) Foot osteomyelitis, right: Status: Acute Plan d2 for 59yo M with no PMHx presenting with redness and ulceration of R great toe over last 10d, found to be septic from osteomyelitis, new dx DM2 severe sepsis due to diabetic osteomyelitis/foot infection - 03/11- vanco + pip/theron, follow BCx, Gen Surg + Wound Care consults, ID consult, will likely need 6 wk of IV ABX via PICC, check arterial Doppler US DM2, new dx - A1c 11.7. Started basal-bolus insulin and will need MTF + glargine upon discharge. DM teaching. Needs PCP as well. VTE prophylaxis - enoxaparin dispo - anticipate home with [facility] for infusion eventually In my clinical judgment, the patient requires continued inpatient hospitalization for the following reasons: IV ABX Total time managing care of this patient today: 45 minutes. Quality Stroke Does the patient have a stroke diagnosis?: No VTE Prior VTE?: No VTE Risk Level:: Medical - moderate - high VTE Device Contraindication: Treatment Not Indicated VTE Drug Contraindication: N/A - Med Ordered
--- NOTE | 2024-03-12 09:42 | P.CONGS_ITS ---
History of Present Illness Consult details Consult date: 03/12/24 Narrative: Surgical consult for evaluation of right foot wound. Patient is a 59-year-old male who apparently has just been diagnosed with diabetes who presents here with several day history of right foot/great toe swelling, pain, and redness. He has never had this before. He is not recall any specific trauma to the foot. Because of progression of symptoms, he presents for further evaluation through the ER and was admitted with right foot cellulitis question abscess. Chart was reviewed and patient evaluated PMFSH Past Medical History Medical History (Updated 03/11/24 @ 22:53 by Matt Rodriguez MD) No pertinent past medical history Social History Social History Household Members: None Housing: Apartment Do you presently have visiting nurse or other home services: No Alcohol intake: current Patient Tobacco Use Status: Current everyday Tobacco user Tobacco use type: Cigarette e-Cigarette/Vaping Use: Never Used Substance Use Type: Marijuana Meds Allergies Allergy/AdvReac Type Severity Reaction Status Date / Time No Known Allergies Allergy Verified 03/11/24 21:17 Active Medications: Current Medications Acetaminophen (Acetaminophen 325 Mg Tablet) 650 mg PO Q6H PRN PRN Reason: Pain, Mild (Pain Scale 1-3), fever or headache Calcium Carbonate (Calcium Carbonate 750 Mg Tab.Chew) 750 mg PO Q4H PRN PRN Reason: Heartburn Enoxaparin Sodium (Enoxaparin Sodium 40 Mg/0.4 Ml Syringe) 40 mg SUBCUT Q24H [facility] Last Admin: 03/11/24 22:59 Dose: 40 mg Glucose (Glucose Gel 15 Gm Gel..Gram.) 15 gm PO Q15M PRN; Protocol PRN Reason: per Hypoglycemia Standing Ord. Dextrose (D10) 250 mls @ 750 mls/hr IV Q15M PRN; Protocol PRN Reason: per Hypoglycemia Standing Ord. Piperacillin Sod/Tazobactam (Sod 4.5 gm/ Sodium Chloride) 100 mls @ 200 mls/hr IV Q6H [facility] Last Infusion: 03/12/24 04:23 Dose: Infused Vancomycin HCl 750 mg/ Sodium (Chloride) 265 mls @ 265 mls/hr IV Q12H [facility] Insulin Glargine (Insulin Glargine,Hum.Rec.Anlog 100 Unit/Ml 10 Ml Vial) 20 unit SUBCUT BEDTIME [facility] Last Admin: 03/11/24 22:59 Dose: 20 unit Insulin Human Lispro (Insulin Lispro 100 Unit/Ml 3 Ml Vial) 0 unit SUBCUT QIDACHS [facility]; Protocol Last Admin: 03/12/24 08:04 Dose: 4 unit Magnesium Hydroxide (Milk Of Magnesia 30 Ml Oral.Susp) 30 ml PO DAILY PRN PRN Reason: Constipation Melatonin (Melatonin 3 Mg Tablet) 6 mg PO BEDTIME PRN PRN Reason: Insomnia Last Admin: 03/12/24 01:54 Dose: 6 mg Ondansetron HCl (Ondansetron Hcl 4 Mg/2 Ml Vial) 4 mg IVPUSH Q8H PRN PRN Reason: Nausea and Vomiting Pharmacy Consult (Consult Rx Vancomycin Dosing) 1 each MISCELLANE DAILY PRN PRN Reason: Consult order Sodium Chloride (0.9 % Sodium Chloride Flush 3 Ml Syringe) 3 ml IVFLUSH QSHIFT [facility] Last Admin: 03/12/24 08:05 Dose: 3 ml Home Medications ?Medication ?Instructions ?Recorded ?Confirmed ?Last Taken ?Type naproxen sodium 220 mg tablet 440 mg PO BID PRN Pain 03/12/24 03/12/24 Unknown History (Aleve) Physical Exam 2 Vital Signs: Vital Signs: Last Vital Signs Temp 97.0 F 03/12/24 07:55 Pulse 90 03/12/24 07:55 Resp 16 03/12/24 07:55 BP 137/72 03/12/24 07:55 Pulse Ox 97 03/12/24 07:55 O2 Del Method Room Air 03/12/24 07:55 BMI result Body Mass Index 32.5 Extrem: Other: Patient has marked edema of the right lower extremity and foot. He has cellulitic process involving the right great toe. He has a dorsum of foot a large bullous. The plantar aspect also has some desquamating skin and cellulitis. The extremities grossly neurovascularly intact. Because of the marked edema, pedal pulses 1 able to be appreciated. Contralateral left foot grossly within normal limits Results Labs 03/12/24 06:21 03/12/24 06:21 Labs: Abnormal lab results 03/11/24 03/11/24 03/11/24 Range/Units 21:36 22:08 23:13 WBC 41.6 H* (4.8-10.8) X10*3/uL RBC 4.54 L (4.60-5.80) X10*6/uL Hgb 12.4 L (14.0-18.0) g/dl Hct 35.4 L (42.0-52.0) % MCV 78.0 L (80.0-98.0) fL Plt Count 487 H (160-400) X10*3/uL MPV 8.9 L (9.4-12.4) fL Immature Gran % (Auto) 3.9 H (0.0-0.4) % Neut % (Auto) 86.2 H (45-73) % Lymph % (Auto) 3.4 L (20-40) % Bennett # (Auto) 2.5 H (0.1-1.2) X10*3/uL Abs Immat Gran (auto) 1.64 H (0.00-0.03) X10*3/uL Absolute Neuts (auto) 35.9 H (2.0-8.3) x10*3/uL ESR 85 H (0-15) MM/HR PT 15.6 H (10.9-12.4) SEC INR 1.3 H (0.9-1.1) Sodium 127 L (135-145) mmol/L Chloride 89 L (96-108) mmol/L BUN 21 H (9-16) mg/dL Creatinine (0.5-1.4) mg/dL POC Glucose (60-115) mg/dL Random Glucose 418 H* (60-115) mg/dL Hemoglobin A1c % 11.7 H (<6.0) % Lactic Acid 2.4 H* (0.5-2.0) mmol/L Total Bilirubin 2.1 H (0.0-1.0) mg/dL AST 44 H (5-37) U/L Alkaline Phosphatase 261 H (39-117) U/L C-Reactive Protein 40.24 H (< or = 0.50) mg/dL Albumin 3.0 L (3.5-5.0) g/dL 03/12/24 03/12/24 Range/Units 06:21 07:53 WBC 38.2 H* (4.8-10.8) X10*3/uL RBC 3.90 L (4.60-5.80) X10*6/uL Hgb 10.7 L (14.0-18.0) g/dl Hct 30.6 L (42.0-52.0) % MCV 78.5 L (80.0-98.0) fL Plt Count 441 H (160-400) X10*3/uL MPV 9.3 L (9.4-12.4) fL Immature Gran % (Auto) 3.4 H (0.0-0.4) % Neut % (Auto) 84.7 H (45-73) % Lymph % (Auto) 5.2 L (20-40) % Bennett # (Auto) 2.4 H (0.1-1.2) X10*3/uL Abs Immat Gran (auto) 1.28 H (0.00-0.03) X10*3/uL Absolute Neuts (auto) 32.3 H (2.0-8.3) x10*3/uL ESR (0-15) MM/HR PT (10.9-12.4) SEC INR (0.9-1.1) Sodium 128 L (135-145) mmol/L Chloride 91 L (96-108) mmol/L BUN 25 H (9-16) mg/dL Creatinine 1.51 H (0.5-1.4) mg/dL POC Glucose 250 H (60-115) mg/dL Random Glucose 285 H (60-115) mg/dL Hemoglobin A1c % (<6.0) % Lactic Acid (0.5-2.0) mmol/L Total Bilirubin (0.0-1.0) mg/dL AST (5-37) U/L Alkaline Phosphatase (39-117) U/L C-Reactive Protein (< or = 0.50) mg/dL Albumin (3.5-5.0) g/dL Short CBC 03/11/24 03/12/24 Range/Units 21:36 06:21 WBC 41.6 H* 38.2 H* (4.8-10.8) X10*3/uL Hgb 12.4 L 10.7 L (14.0-18.0) g/dl Hct 35.4 L 30.6 L (42.0-52.0) % Plt Count 487 H 441 H (160-400) X10*3/uL BMP 03/11/24 03/12/24 21:36 06:21 Sodium 127 L 128 L Potassium 4.0 4.6 Chloride 89 L 91 L Carbon Dioxide 25 26 BUN 21 H 25 H Creatinine 1.31 1.51 H Calcium 9.5 9.3 Cardiac Enzymes 03/11/24 Range/Units 21:36 Total Creatine Kinase 71 (38-174) U/L Liver Function 03/11/24 Range/Units 21:36 Total Bilirubin 2.1 H (0.0-1.0) mg/dL AST 44 H (5-37) U/L ALT 15 (0-40) U/L Alkaline Phosphatase 261 H (39-117) U/L Albumin 3.0 L (3.5-5.0) g/dL All other labs normal. Assessment and Plan (1) Foot osteomyelitis, right: Status: Acute (2) Cellulitis: Qualifiers: Laterality: right Site of cellulitis: extremity Site of cellulitis of extremity: lower extremity Qualified Code(s): L03.115 - Cellulitis of right lower limb Status: Acute (3) Sepsis: Status: Acute Plan The right foot is very concerning for deep infection. X-rays are suggestive of osteomyelitis. Consideration for MRI of foot to further delineate depth of inflammatory/infectious process should be undertaken. Also consider vascular consult. At present, continue IV antibiotics, local wound care in the form of ventilation extremity and direct further interventions and studies by the patient's clinical course and results of above-mentioned scan Procedures Date of Service Date of Service: 03/12/24
[2024-03-12] MEDS: vancomycin HCL 750 MG in 0.9 % Sodium Chloride 250 ML 265 MG IV ×2 (10:44→22:07)
[2024-03-12 12:12] LABS: Glucose, Whole Blood 107 mg/dL (60-115)
[2024-03-12] MEDS: oxyCODONE HCl Immed Release 5 MG TABLET PO ×2 (12:20→20:32)
[2024-03-12 16:16] LABS: Glucose, Whole Blood 161 mg/dL (60-115)
--- NOTE | 2024-03-12 16:30 | MHC.CM.PN ---
Addendum entered by Madonna Esteban 03/14/24 13:33: PT MADE AWARE HE WILL HAVE A COPY THROUGH [facility] PT STATES HE FEELS HE MAY NEED SNF PLACEMENT HE LIVES ALONE ON THE 2ND FLOOR AND IS UNSURE IF HE CAN MANAGE HE WILL ALSO NEED IV ABX, WOUND CARE AND POSSIBLY PHYSICAL THERAPY PT IS AWARE OF BED OFFERS AND ORDER OF PREFERENCE IS: [facility]. TURCIOS, PVR Addendum entered by Madonna Esteban 03/13/24 10:43: PT WILL NEED IV ABX AT IN, REFERRAL SENT TO [facility] CM WILL DETERMINE IF PTS INSURANCE WILL ALLOW [facility] TO PROVIDE RN SERVICES HE DOES NOT HAVE A PCP Original Note: PT REPORTS HE LIVES ALONE AND IS INDEPENDENT WITH CARE HE HAS NO SERVICES AND NO DME, ALTHOUGH FEELS HE MAY NEED AN ASSISTIVE DEVICE HE ALSO HAS NO PCP AND NO HCP AND DECLINES TO COMPLETE ONE AT THIS TIME DCP: HOME, PT INELIGIBLE FOR SERVICES HE HAS NO PCP HE WILL NEED ASSISTANCE WITH TRANSPORT
[2024-03-12 20:21] LABS: Glucose, Whole Blood 217 mg/dL (60-115)
[2024-03-12] MEDS: Insulin Glargine,Hum.rec.anlog 100 UNIT/ML 10 ML VIAL 20 UNIT SUBCUT (20:29)
[2024-03-12] MEDS: Enoxaparin Sodium 40 MG/0.4 ML SYRINGE SUBCUT (22:08)
--- NOTE | 2024-03-12 23:47 | W.PM.IDCN ---
History of Present Illness Data of Consult Service Date: 03/12/24 Requesting physician: Yessica Escobar Primary Care Provider: None Physician HPI Reason for consult: bacteremia,right diabetic foot infection He presents with one week discomfort right great toe and blister. He has not seen doctor in some years. He has DM with blood sugar of 418. He has CT scan OM likely right great toe Review of Systems Musculoskeletal: Musculoskeletal: Reports as per [facility] Past Medical History Medical History No pertinent past medical history Family History Family history: reviewed and not pertinent Social History Social History Household Members: None Housing: Apartment Do you presently have visiting nurse or other home services: No Alcohol intake: current Patient Tobacco Use Status: Current everyday Tobacco user Tobacco use type: Cigarette e-Cigarette/Vaping Use: Never Used Substance Use Type: Marijuana Meds Allergies Allergy/AdvReac Type Severity Reaction Status Date / Time No Known Allergies Allergy Verified 03/11/24 21:17 Active Medications: Current Medications Acetaminophen (Acetaminophen 325 Mg Tablet) 650 mg PO Q6H PRN PRN Reason: Pain, Mild (Pain Scale 1-3), fever or headache Calcium Carbonate (Calcium Carbonate 750 Mg Tab.Chew) 750 mg PO Q4H PRN PRN Reason: Heartburn Enoxaparin Sodium (Enoxaparin Sodium 40 Mg/0.4 Ml Syringe) 40 mg SUBCUT Q24H [facility] Last Admin: 03/12/24 22:08 Dose: 40 mg Glucose (Glucose Gel 15 Gm Gel..Gram.) 15 gm PO Q15M PRN; Protocol PRN Reason: per Hypoglycemia Standing Ord. Dextrose (D10) 250 mls @ 750 mls/hr IV Q15M PRN; Protocol PRN Reason: per Hypoglycemia Standing Ord. Piperacillin Sod/Tazobactam (Sod 4.5 gm/ Sodium Chloride) 100 mls @ 200 mls/hr IV Q6H [facility] Last Infusion: 03/12/24 22:02 Dose: Infused Vancomycin HCl 750 mg/ Sodium (Chloride) 265 mls @ 265 mls/hr IV Q12H [facility] Last Infusion: 03/12/24 23:29 Dose: Infused Insulin Glargine (Insulin Glargine,Hum.Rec.Anlog 100 Unit/Ml 10 Ml Vial) 20 unit SUBCUT BEDTIME [facility] Last Admin: 03/12/24 20:29 Dose: 20 unit Insulin Human Lispro (Insulin Lispro 100 Unit/Ml 3 Ml Vial) 0 unit SUBCUT QIDACHS [facility]; Protocol Last Admin: 03/12/24 20:30 Dose: 20 unit Magnesium Hydroxide (Milk Of Magnesia 30 Ml Oral.Susp) 30 ml PO DAILY PRN PRN Reason: Constipation Melatonin (Melatonin 3 Mg Tablet) 6 mg PO BEDTIME PRN PRN Reason: Insomnia Last Admin: 03/12/24 01:54 Dose: 6 mg Ondansetron HCl (Ondansetron Hcl 4 Mg/2 Ml Vial) 4 mg IVPUSH Q8H PRN PRN Reason: Nausea and Vomiting Oxycodone HCl (Oxycodone Hcl Immed Release 5 Mg Tablet) 5 mg PO Q4H PRN PRN Reason: pain, moderate to severe Last Admin: 03/12/24 20:32 Dose: 5 mg Pharmacy Consult (Consult Rx Vancomycin Dosing) 1 each MISCELLANE DAILY PRN PRN Reason: Consult order Sodium Chloride (0.9 % Sodium Chloride Flush 3 Ml Syringe) 3 ml IVFLUSH [facility] Last Admin: 03/12/24 16:48 Dose: 3 ml Home Medications ?Medication ?Instructions ?Recorded ?Confirmed ?Last Taken ?Type naproxen sodium 220 mg tablet 440 mg PO BID PRN Pain 03/12/24 03/12/24 Unknown History (Aleve) Physical Exam Vital Signs: Vital Signs: Last Vital Signs Temp 98.5 F 03/12/24 23:33 Pulse 89 03/12/24 23:33 Resp 18 03/12/24 23:33 BP 162/86 H 03/12/24 23:33 Pulse Ox 96 03/12/24 23:33 O2 Del Method Room Air 03/12/24 23:33 BMI result Body Mass Index 32.5 Const: General: cooperative HEENT: Head: Yes normal to inspection Face and sinus: Yes normal facial exam Mouth: Normal oral and palatal mucosa present Teeth and gingiva: dentition normal Eyes: General: appearance normal, both eyes and all related structures Pupils: Equal, round and reactive pupils present Resp: Effort & Inspection: normal respiratory effort Cardio: Rate: regular rate Rhythm: regular rhythm GI: Palpation (GI): Soft to palpation and nontender : General: Yes no CVA tenderness Back/Spine/Pelvis: Back: no CVA tenderness Skin: General skin exam: no rashes or lesions noted Neuro: General: moves all extremities Cranial nerves: Yes Equal, round and reactive pupils present Extrem: Other: right great toe some bleeding Doppler pulses neuropathy bilateral feet Psych: Appearance: grossly normal Results Labs 03/12/24 06:21 03/12/24 06:21 Labs: Short CBC 03/12/24 Range/Units 06:21 WBC 38.2 H* (4.8-10.8) X10*3/uL Hgb 10.7 L (14.0-18.0) g/dl Hct 30.6 L (42.0-52.0) % Plt Count 441 H (160-400) X10*3/uL BMP 03/12/24 06:21 Sodium 128 L Potassium 4.6 Chloride 91 L Carbon Dioxide 26 BUN 25 H Creatinine 1.51 H Calcium 9.3 Microbiology Microbiology Results: Microbiology 03/11/24 22:08 Blood - Venous Blood Culture - Preliminary Prelim: GPC Gram Stain only 03/11/24 21:36 Blood - Venous Blood Culture - Preliminary Prelim: GPC Gram Stain only Assessment and Plan (1) Hyperglycemia: Status: Acute (2) Sepsis: Status: Acute (3) Foot osteomyelitis, right: Status: Acute (4) Abscess: Status: Acute (5) Cellulitis: Qualifiers: Laterality: right Site of cellulitis: extremity Site of cellulitis of extremity: lower extremity Qualified Code(s): L03.115 - Cellulitis of right lower limb Status: Acute Plan He has OM likely right great toe and DM as well as Vascular disease concern. He has seen General Surgery Bacteremia may be staph or strep,including MRSA He can continue with piperacillin/tazobactam and Vancomycin pending blood culture and clinical improvement. Await final blood cultures. TTE evaluate endocarditis. It is vital to get Vascular involved to optimize blood flow as likely need six weeks IV antibiotics for OM/bacteremia. Optimize glucose control .
[2024-03-13] MEDS: Piperacillin Sodium/Tazobactam 4.5 GM in 0.9 % Sodium Chloride 100 ML IV ×4 (04:31→21:35)
[2024-03-13 05:36] LABS: Hematocrit 30.6 % (42.0-52.0); Mean Corpuscular HGB Conc 35.9 g/dl (31.0-36.0); Mean Corpuscular Hemoglobin 27.6 pg (27.0-33.0); Mean Corpuscular Volume 76.9 fL (80.0-98.0); Mean Platelet Volume 8.8 fL (9.4-12.4); Platelet Count 399 X10*3/uL (160-400); Red Blood Count 3.98 X10*6/uL (4.60-5.80)
[2024-03-13 05:49] LABS: White Blood Count 31.4 X10*3/uL (4.8-10.8)
[2024-03-13 05:52] LABS: Anion Gap 15 (12-20); Blood Urea Nitrogen 27 mg/dL (9-16); Calcium 9.1 mg/dL (8.4-10.2); Carbon Dioxide 23 mmol/L (22-29); Chloride 95 mmol/L (96-108); Creatinine Clr Calc Pharmacy 49.8; Estimated Glomerular Filt Rate 39; Glucose Random 84 mg/dL (60-115); Potassium 3.8 mmol/L (3.3-5.1); Sodium 129 mmol/L (135-145)
[2024-03-13] MEDS: 0.9 % Sodium Chloride 1,000 ML 125 ML IVCONT ×2 (07:28→16:35)
[2024-03-13] MEDS: 0.9 % Sodium Chloride Flush 3 ML SYRINGE IVFLUSH ×3 (07:31→21:43)
[2024-03-13 07:34] VITALS: BP 145/77; PULSE 84; RESP 16; TEMP 36.8; O2SAT 95
[2024-03-13 07:46] LABS: Glucose, Whole Blood 92 mg/dL (60-115)
[2024-03-13] MEDS: oxyCODONE HCl Immed Release 5 MG TABLET PO (08:12)
[2024-03-13] MEDS: DAPTOmycin 800 MG in 0.9 % Sodium Chloride 50 ML 100.76 MG IV (08:12)
[2024-03-13 08:51] LABS: Appearance Urine Cloudy; Color Urine Dark Yellow; Glucose Urine UA Negative (Negative); Leukocyte Esterase Urine Negative (Negative); Nitrite Urine Negative (Negative); PH 5.5 (5.0-9.0); Specific Gravity - Urine 1.025 (1.005-1.025); UMIC TRIGGER UA YES; Urine Blood Small (1+) (Negative); Urine Ketones Trace mg/dL (Negative); Urine Protein 30 (1+) mg/dL (Neg-Trace)
--- NOTE | 2024-03-13 08:55 | P.PNIM_ITS ---
Subjective Subjective Date of Service: 03/13/24 Interval History: bacteremic aching of foot no fever Review of Systems Review of Systems: Yes all other systems are reviewed and are negative Physical Exam 2 Vital Signs: Vital Signs: Last Vital Signs Temp 98.2 F 03/13/24 07:34 Pulse 84 03/13/24 07:34 Resp 16 03/13/24 07:34 BP 145/77 H 03/13/24 07:34 Pulse Ox 95 03/13/24 07:34 O2 Del Method Room Air 03/13/24 07:34 BMI result Body Mass Index 32.5 Gen: in no acute distress HEENT: sclera anicteric, moist mucus membranes Neck: supple Lungs: clear to auscultation bilaterally Heart: regular rate and rhythm, no murmurs Abd: soft, non-tender, non-distended Ext: RLE swollen below mid-calf Skin: warm/well-perfused, R foot with erythema + discoloration + induration, purulent medial great toe ulcer Neuro: alert and oriented x3, no focal findings Psych: appropriate affect Extrem: Other: Patient has marked edema of the right lower extremity and foot. He has cellulitic process involving the right great toe. He has a dorsum of foot a large bullous. The plantar aspect also has some desquamating skin and cellulitis. The extremities grossly neurovascularly intact. Because of the marked edema, pedal pulses 1 able to be appreciated. Contralateral left foot grossly within normal limits Objective Data Active Medications Acetaminophen (Acetaminophen 325 Mg Tablet) 650 mg PO Q6H PRN PRN Reason: Pain, Mild (Pain Scale 1-3), fever or headache Calcium Carbonate (Calcium Carbonate 750 Mg Tab.Chew) 750 mg PO Q4H PRN PRN Reason: Heartburn Enoxaparin Sodium (Enoxaparin Sodium 40 Mg/0.4 Ml Syringe) 40 mg SUBCUT Q24H [facility] Last Admin: 03/12/24 22:08 Dose: 40 mg Documented By: FELA Glucose (Glucose Gel 15 Gm Gel..Gram.) 15 gm PO Q15M PRN; Protocol PRN Reason: per Hypoglycemia Standing Ord. Dextrose (D10) 250 mls @ 750 mls/hr IV Q15M PRN; Protocol PRN Reason: per Hypoglycemia Standing Ord. Piperacillin Sod/Tazobactam (Sod 4.5 gm/ Sodium Chloride) 100 mls @ 200 mls/hr IV Q6H [facility] Last Infusion: 03/13/24 05:01 Dose: Infused Documented By: FELA Sodium Chloride (Ns) 1,000 mls @ 125 mls/hr IVCONT .Q8H [facility] Last Infusion: 03/13/24 08:16 Dose: 0 mls/hr Documented By: CHACORTA Daptomycin 800 mg/ Sodium (Chloride) 66 mls @ 100.763 mls/hr IV Q24H [facility] Last Admin: 03/13/24 08:12 Dose: 100.76 mls/hr Documented By: CHACORTA Insulin Glargine (Insulin Glargine,Hum.Rec.Anlog 100 Unit/Ml 10 Ml Vial) 20 unit SUBCUT BEDTIME [facility] Last Admin: 03/12/24 20:29 Dose: 20 unit Documented By: JOANIE Insulin Human Lispro (Insulin Lispro 100 Unit/Ml 3 Ml Vial) 0 unit SUBCUT QIDACHS [facility]; Protocol Last Admin: 03/13/24 07:51 Dose: Not Given Documented By: CHACORTA Non-Admin Reason: No Insulin Coverage Magnesium Hydroxide (Milk Of Magnesia 30 Ml Oral.Susp) 30 ml PO DAILY PRN PRN Reason: Constipation Melatonin (Melatonin 3 Mg Tablet) 6 mg PO BEDTIME PRN PRN Reason: Insomnia Last Admin: 03/12/24 01:54 Dose: 6 mg Documented By: JEFERSON Ondansetron HCl (Ondansetron Hcl 4 Mg/2 Ml Vial) 4 mg IVPUSH Q8H PRN PRN Reason: Nausea and Vomiting Oxycodone HCl (Oxycodone Hcl Immed Release 5 Mg Tablet) 5 mg PO Q4H PRN PRN Reason: pain, moderate to severe Last Admin: 03/13/24 08:12 Dose: 5 mg Documented By: CHACORTA Sodium Chloride (0.9 % Sodium Chloride Flush 3 Ml Syringe) 3 ml IVFLUSH QSHIFT [facility] Last Admin: 03/13/24 07:31 Dose: 3 ml Documented By: CHACORTA Labs 03/13/24 05:25 03/13/24 05:25 Labs: Laboratory Results - last 24 hr 03/12/24 03/12/2424 12:08 16:08 20:11 MCV MCH MCHC RDW Plt Count MPV Absolute Nucleated RBC Nucleated RBC % (auto) Anion Gap Estim Creat Clear Calc Estimated GFR POC Glucose 107 161 H 217 H Random Glucose Calcium Urine Color Urine Appearance Urine pH Ur Specific [place] Urine Protein Urine Glucose (UA) Urine Ketones Urine Blood Urine Nitrite Ur Leukocyte Esterase 03/13/24 03/13/24 03/13/24 05:25 07:42 08:40 MCV 76.9 L MCH 27.6 MCHC 35.9 RDW 13.0 Plt Count 399 MPV 8.8 L Absolute Nucleated RBC 0.000 Nucleated RBC % (auto) 0.0 Anion Gap 15 Estim Creat Clear Calc 49.8 Estimated GFR 39 POC Glucose 92 Random Glucose 84 Calcium 9.1 Urine Color Dark Yellow Urine Appearance Cloudy Urine pH 5.5 Ur Specific [place] 1.025 Urine Protein 30 (1+) H Urine Glucose (UA) Negative Urine Ketones Trace Urine Blood Small (1+) H Urine Nitrite Negative Ur Leukocyte Esterase Negative Microbiology Microbiology Results: Microbiology 03/11/24 21:36 Blood Culture - Preliminary Blood - Venous Prelim: GPC Gram Stain only 03/11/24 22:08 Blood Culture - Preliminary Blood - Venous Prelim: GPC Gram Stain only Assessment and Plan (1) Foot osteomyelitis, right: Status: Acute Plan d3 for 59yo M with no PMHx presenting with redness and ulceration of R great toe over last 10d, found to be septic from osteomyelitis with GPC bacteremia, new dx DM2 severe sepsis due to diabetic osteomyelitis/foot infection with GPC bacteremia - vanco to change to dapto today given LAMAR, 03/11- pip/theron, follow bacterial speciation + susceptibilties - repeat BCx 03/14 to document clearance; if clear, BCx 03/16 then PICC for home ABX infusion; check TTE to r/o IE - Gen Surg + ID following, also will consult Vascular Surg + Wound Care, aterial Doppler US pending DM2, new dx - A1c 11.7. Started basal-bolus insulin and will need MTF + glargine upon discharge. DM teaching. Needs PCP as well. LAMAR - suspect prerenal but will order urine studies and renal US and change ABX from vancomycin to daptomycin VTE prophylaxis - enoxaparin dispo - anticipate home with VNA for infusion eventually In my clinical judgment, the patient requires continued inpatient hospitalization for the following reasons: IV ABX, bacteremia Total time managing care of this patient today: 45 minutes. Quality Stroke Does the patient have a stroke diagnosis?: No VTE Prior VTE?: No VTE Risk Level:: Medical - moderate - high VTE Device Contraindication: Treatment Not Indicated VTE Drug Contraindication: N/A - Med Ordered
[2024-03-13 08:59] LABS: Bacteria Urine None Seen (None Seen); Hyaline Casts Urine 0-2 /LPF (0-2); WBC Urine 0-5 /HPF (0-5)
[2024-03-13 09:05] VITALS: RESP 18
[2024-03-13 09:17] LABS: Creatinine Urine 130.16 mg/dL; Microalbum/Creatinine Ratio Ur 58.3 ug/mg cr (<30); Sodium Urine Random < 20.0 mmol/L
[2024-03-13 11:48] LABS: Glucose, Whole Blood 189 mg/dL (60-115)
[2024-03-13] MEDS: Insulin Lispro 100 UNIT/ML 3 ML VIAL SUBCUT ×3 (12:02→21:35)
[2024-03-13] MEDS: Nicotine Polacrilex 2 MG GUM BUCCAL (12:03)
[2024-03-13] MEDS: Nicotine 7 MG PATCH.TD24 TRANSDERMA (12:03)
[2024-03-13 15:21] VITALS: BP 165/80; PULSE 89; RESP 18; TEMP 36.6
--- NOTE | 2024-03-13 15:37 | P.PNGS_ITS ---
Subjective Subjective Date of Service: 03/13/24 Interval history: Patient states right foot pain is status quo. Physical Exam 2 Vital Signs: Vital Signs: Last Vital Signs Temp 97.8 F 03/13/24 15:21 Pulse 89 03/13/24 15:21 Resp 18 03/13/24 15:21 BP 165/80 H 03/13/24 15:21 Pulse Ox 95 03/13/24 07:34 O2 Del Method Room Air 03/13/24 15:21 O2 Flow Rate 95 03/13/24 15:21 BMI result Body Mass Index 32.5 Extrem: Other: The right mid foot is very concerning for deep-seated infection. There is significant edema, bullous disease, edema, extending to the plantar surface and great toe. Marked cellulitis/inflammation Objective Data Active Medications Acetaminophen (Acetaminophen 325 Mg Tablet) 650 mg PO Q6H PRN PRN Reason: Pain, Mild (Pain Scale 1-3), fever or headache Calcium Carbonate (Calcium Carbonate 750 Mg Tab.Chew) 750 mg PO Q4H PRN PRN Reason: Heartburn Enoxaparin Sodium (Enoxaparin Sodium 40 Mg/0.4 Ml Syringe) 40 mg SUBCUT Q24H [facility] Last Admin: 03/12/24 22:08 Dose: 40 mg Documented By: FELA Glucose (Glucose Gel 15 Gm Gel..Gram.) 15 gm PO Q15M PRN; Protocol PRN Reason: per Hypoglycemia Standing Ord. Dextrose (D10) 250 mls @ 750 mls/hr IV Q15M PRN; Protocol PRN Reason: per Hypoglycemia Standing Ord. Piperacillin Sod/Tazobactam (Sod 4.5 gm/ Sodium Chloride) 100 mls @ 200 mls/hr IV Q6H [facility] Last Admin: 03/13/24 15:19 Dose: 200 mls/hr Documented By: CHACORTA Sodium Chloride (Ns) 1,000 mls @ 125 mls/hr IVCONT .Q8H [facility] Last Infusion: 03/13/24 09:00 Dose: 125 mls/hr Documented By: CHACORTA Daptomycin 800 mg/ Sodium (Chloride) 66 mls @ 100.763 mls/hr IV Q24H [facility] Last Infusion: 03/13/24 09:00 Dose: Infused Documented By: CHACORTA Insulin Glargine (Insulin Glargine,Hum.Rec.Anlog 100 Unit/Ml 10 Ml Vial) 20 unit SUBCUT BEDTIME [facility] Last Admin: 03/12/24 20:29 Dose: 20 unit Documented By: JOANIE Insulin Human Lispro (Insulin Lispro 100 Unit/Ml 3 Ml Vial) 0 unit SUBCUT QIDACHS [facility]; Protocol Last Admin: 03/13/24 12:02 Dose: 2 unit Documented By: CHACORTA Magnesium Hydroxide (Milk Of Magnesia 30 Ml Oral.Susp) 30 ml PO DAILY PRN PRN Reason: Constipation Melatonin (Melatonin 3 Mg Tablet) 6 mg PO BEDTIME PRN PRN Reason: Insomnia Last Admin: 03/12/24 01:54 Dose: 6 mg Documented By: JEFERSON Nicotine (Nicotine 7 Mg Patch.Td24) 7 mg TRANSDERMA DAILY [facility] Last Admin: 03/13/24 12:03 Dose: 7 mg Documented By: CHACORTA Nicotine Polacrilex (Nicotine Polacrilex 2 Mg Gum) 2 mg BUCCAL Q1H PRN PRN Reason: Nicotine Cravings Last Admin: 03/13/24 12:03 Dose: 2 mg Documented By: CHACORTA Ondansetron HCl (Ondansetron Hcl 4 Mg/2 Ml Vial) 4 mg IVPUSH Q8H PRN PRN Reason: Nausea and Vomiting Oxycodone HCl (Oxycodone Hcl Immed Release 5 Mg Tablet) 5 mg PO Q4H PRN PRN Reason: pain, moderate to severe Last Admin: 03/13/24 08:12 Dose: 5 mg Documented By: CHACORTA Sodium Chloride (0.9 % Sodium Chloride Flush 3 Ml Syringe) [facility] Last Admin: 03/13/24 07:31 Dose: 3 ml Documented By: CHACORTA Labs 03/13/24 05:25 03/13/24 05:25 Labs: Laboratory Results - last 24 hr 03/12/24 03/12/24 03/13/24 16:08 20:11 05:25 MCV 76.9 L MCH 27.6 MCHC 35.9 RDW 13.0 Plt Count 399 MPV 8.8 L Absolute Nucleated RBC 0.000 Nucleated RBC % (auto) 0.0 Anion Gap 15 Estim Creat Clear Calc 49.8 Estimated GFR 39 POC Glucose 161 H 217 H Random Glucose 84 Calcium 9.1 Urine Color Urine Appearance Urine pH Ur Specific [place] Urine Protein Urine Glucose (UA) Urine Ketones Urine Blood Urine Nitrite Ur Leukocyte Esterase Urine RBC Urine WBC Ur Squamous Epith Cells Urine Bacteria Hyaline Casts Ur Random Sodium Urine Creatinine Urine Microalbumin Microalb/Creat Ratio 03/13/24 03/13/24 03/13/24 07:42 08:40 11:44 MCV MCH MCHC RDW Plt Count MPV Absolute Nucleated RBC Nucleated RBC % (auto) Anion Gap Estim Creat Clear Calc Estimated GFR POC Glucose 92 189 H Random Glucose Calcium Urine Color Dark Yellow Urine Appearance Cloudy Urine pH 5.5 Ur Specific [place] 1.025 Urine Protein 30 (1+) H Urine Glucose (UA) Negative Urine Ketones Trace Urine Blood Small (1+) H Urine Nitrite Negative Ur Leukocyte Esterase Negative Urine RBC 3-5 H Urine WBC 0-5 Ur Squamous Epith Cells 3-5 Urine Bacteria None Seen Hyaline Casts 0-2 Ur Random Sodium < 20.0 Urine Creatinine 130.16 Urine Microalbumin 76.0 Microalb/Creat Ratio 58.3 H Microbiology Microbiology Results: Microbiology 03/11/24 22:08 Blood Culture - Preliminary Blood - Venous Staphylococcus aureus Strep agalactiae (Grp B) 03/11/24 21:36 Blood Culture - Preliminary Blood - Venous Strep agalactiae (Grp B) Procedures Date of Service Date of Service: 03/13/24 Progress Note: A&P Assessment and plan (1) Abscess: Status: Acute (2) Cellulitis: Status: Acute (3) Foot osteomyelitis, right: Status: Acute (4) Sepsis: Status: Acute Plan I discussed with the patient my concern that this is a very worrisome deep foot infection that most probably will not resolve with the antibiotics for the inguinal nonetheless be attempted. Patient may need to have surgery regarding this. This was just briefly broached with the patient but will be further discussed with him tomorrow. Time Spent With Patient Time: Total time managing care of this patient today ____ minutes. Quality Stroke Does the patient have a stroke diagnosis?: No VTE Prior VTE?: No VTE Risk Level:: Medical - moderate - high VTE Device Contraindication: Treatment Not Indicated VTE Drug Contraindication: N/A - Med Ordered
[2024-03-13 16:04] LABS: Glucose, Whole Blood 231 mg/dL (60-115)
[2024-03-13 20:10] LABS: Glucose, Whole Blood 276 mg/dL (60-115)
[2024-03-13] MEDS: Insulin Glargine,Hum.rec.anlog 100 UNIT/ML 10 ML VIAL 20 UNIT SUBCUT (21:34)
[2024-03-13] MEDS: Enoxaparin Sodium 40 MG/0.4 ML SYRINGE SUBCUT (21:34)
[2024-03-13 23:37] VITALS: BP 166/81; PULSE 84; RESP 18; TEMP 36.4; O2SAT 95
[2024-03-14] MEDS: 0.9 % Sodium Chloride 1,000 ML 125 ML IVCONT ×3 (01:03→21:04)
[2024-03-14] MEDS: Piperacillin Sodium/Tazobactam 4.5 GM in 0.9 % Sodium Chloride 100 ML IV ×2 (04:34→09:29)
[2024-03-14 06:40] LABS: Hematocrit 30.5 % (42.0-52.0); Hemoglobin 10.7 g/dl (14.0-18.0); Mean Corpuscular HGB Conc 35.1 g/dl (31.0-36.0); Mean Corpuscular Hemoglobin 27.2 pg (27.0-33.0); Mean Corpuscular Volume 77.6 fL (80.0-98.0); Mean Platelet Volume 9.2 fL (9.4-12.4); Platelet Count 420 X10*3/uL (160-400); Red Blood Count 3.93 X10*6/uL (4.60-5.80); Red Cell Distribution Width 13.2 % (11.0-16.0); White Blood Count 28.9 X10*3/uL (4.8-10.8)
[2024-03-14 06:52] LABS: Anion Gap 15 (12-20); Blood Urea Nitrogen 23 mg/dL (9-16); Calcium 8.8 mg/dL (8.4-10.2); Carbon Dioxide 22 mmol/L (22-29); Chloride 97 mmol/L (96-108); Creatinine Clr Calc Pharmacy 51.8; Estimated Glomerular Filt Rate 41; Glucose Random 93 mg/dL (60-115); Potassium 3.5 mmol/L (3.3-5.1); Sodium 130 mmol/L (135-145)
--- NOTE | 2024-03-14 07:00 | CA_ITS ---
Transthoracic Echocardiogram Patient (Last, First, Middle): Rubio Kim, Gender: Male Date of : 1965 Age: 59 Procedure Date: 03/14/2024 Procedure Type: Transthoracic Echocardiogram Location: S3E Height: 172.72 cm Weight: 96.62 kg BSA: 2.10 m2 Heart Rate: bpm BP: 166 / 81 mmHg Production Expert: SAWYER Referring MD: Yessica Escobar MD Symptoms: GPC bacteremie Study Quality: Fair ECG Rhythm: Sinus Conclusions: - The left ventricular systolic function is normal. The calculated ejection fraction is 68% by biplane method. - The basal inferior segment is akinetic. - The basal inferolateral segment is hypokinetic. - There is mild calcification of the aortic valve. Cannot exclude vegetation. Findings Left Ventricle Normal left ventricular cavity size. There is normal left ventricular wall thickness. The left ventricular systolic function is normal. The calculated ejection fraction is 68% by biplane method. Diastolic function is normal for age. Wall Motion Rest Echo Findings The basal inferolateral segment is hypokinetic. The basal inferior segment is akinetic. Right Ventricle Normal right ventricular cavity size and systolic function. Atria Both atria are normal in size. Aortic Valve There is a normal trileaflet aortic valve. There is mild calcification of the aortic valve. There is no aortic valve stenosis. There is mild aortic valve regurgitation. Mitral Valve The mitral valve appears normal. There is no mitral valve regurgitation. There is no mitral valve stenosis. Pulmonic Valve The pulmonic valve is likely normal. Tricuspid Valve There is trace tricuspid valve regurgitation. Tricuspid regurgitation envelope is inadequate for calculation of right ventricular systolic pressure. Great Vessels The asc aorta is normal in size. Venous The inferior vena cava is mildly dilated and collapses greater than 50% with inspiration. Pericardium/Pleural There is no evidence of pericardial effusion. Prior Study Comparison No prior study available for comparison. Recommendations, Care & Conclusions Consider a ELZBIETA if clinically appropriate. Measurements 2D Linear Measurements IVSd: 0.86 0.6-0.9/0.6-1.0 cm LVIDd: 5.13 3.9-5.3/4.2-5.9 cm LVIDd Index: 2.44 2.4-3.2/2.2-3.1 cm/m2 LVIDs: 3.49 2.0-3.6 cm LVPWd: 0.80 0.7-1.1 cm LA Diam: 3.20 2.7-3.8/3.0-4.0 cm LAIDs Index: 1.52 1.5-2.3 cm/m2 LV Mass: 184.73 67-162/88-224 g LV Mass Index: 87.97 43-95/49-115 g/m2 LVOT Diam: 2.10 3.0+(-)1.3 cm 2D Systolic Function EF 4C: 65.80 >55% EF 2C: 67.70 >55% EF BiP: 67.80 >55% Mitral Valve MV Pk E: 0.96 MV PK A: 0.89 MV Decel Time: 215.00 E/A: 1.10 E'Lateral: 10.70 E'Medial: 8.70 E/E' Med: 11.00 E/E' Lat: 8.90 PHT: 63.00 MVA PHT: 3.49 Decel Benson: 4.45 Aortic Valve AoV Pk Mitchel: 1.56 AoV Mn Mitchel: 1.11 AoV VTI: 0.33 AoV Pk Grad: 10.00 Aov Mn Grad: 6.00 VARGHESE Cont.VTI: 2.08 LVOT LVOT Pk Mitchel: 1.02 LVOT Mn Mitchel: 0.70 LVOT VTI: 0.20 LVOT Pk Grad: 4.00 LVOT Mn Grad: 2.00 LVOT Diam: 2.10 LVOT Area: 3.46 Diastolic Function MV Pk E: 0.96 MV Pk A: 0.89 E/A: 1.10 E'Medial: 8.70 E/E' Med: 11.00 E' Laterial: 10.70 E/E' Lat: 8.90 Right Ventricle TAPSE (mm): 24.30 TVS' Mitchel: 13.50 Tricuspid Valve RA Press: 8.00 Great Vessels Aorta Sinus of Valsalva: 3.44 2.0-3.[address] [place]: 2.74 1.7-3.4 cm Ao Asc: 3.30 2.1-3.4 cm Updated in Other Vendor System with Status of Final Roland Aquino MD electronically signed on 03/14/2024 3:25:03 PM with status of Final
[2024-03-14 07:29] VITALS: BP 142/75; PULSE 80; RESP 14; TEMP 36.3; O2SAT 97
[2024-03-14 07:35] LABS: Glucose, Whole Blood 105 mg/dL (60-115)
[2024-03-14] MEDS: 0.9 % Sodium Chloride Flush 3 ML SYRINGE IVFLUSH ×2 (08:02→16:17)
[2024-03-14] MEDS: DAPTOmycin 800 MG in 0.9 % Sodium Chloride 50 ML 100.76 MG IV (08:03)
[2024-03-14] MEDS: Nicotine 7 MG PATCH.TD24 TRANSDERMA (08:05)
--- NOTE | 2024-03-14 09:20 | P.PNGS_ITS ---
Subjective Subjective Date of Service: 03/14/24 Interval history: Denies significant pain. Physical Exam 2 Vital Signs: Vital Signs: Last Vital Signs Temp 97.3 F 03/14/24 07:29 Pulse 80 03/14/24 07:29 Resp 14 03/14/24 07:29 BP 142/75 H 03/14/24 07:29 Pulse Ox 97 03/14/24 07:29 O2 Del Method Room Air 03/14/24 07:29 O2 Flow Rate 95 03/13/24 15:21 BMI result Body Mass Index 32.5 Const: General: comfortable, no acute distress and alert O rientation/consciousness: patient oriented x3 Resp: Effort & Inspection: normal respiratory effort Neuro: General: patient oriented x3 and moves all extremities Extrem: Other: right lower extremity with significant edema extending just inferior to patella, worsening necrotic changes of right foot extending to midfoot of both dorsal and plantar aspects, significant edema and bogginess extending to calcaneous of plantar aspect Objective Data Active Medications Acetaminophen (Acetaminophen 325 Mg Tablet) 650 mg PO Q6H PRN PRN Reason: Pain, Mild (Pain Scale 1-3), fever or headache Calcium Carbonate (Calcium Carbonate 750 Mg Tab.Chew) 750 mg PO Q4H PRN PRN Reason: Heartburn Enoxaparin Sodium (Enoxaparin Sodium 40 Mg/0.4 Ml Syringe) 40 mg SUBCUT Q24H [facility] Last Admin: 03/13/24 21:34 Dose: 40 mg Documented By: ROCÍO Glucose (Glucose Gel 15 Gm Gel..Gram.) 15 gm PO Q15M PRN; Protocol PRN Reason: per Hypoglycemia Standing Ord. Dextrose (D10) 250 mls @ 750 mls/hr IV Q15M PRN; Protocol PRN Reason: per Hypoglycemia Standing Ord. Piperacillin Sod/Tazobactam (Sod 4.5 gm/ Sodium Chloride) 100 mls @ 200 mls/hr IV Q6H [facility] Last Infusion: 03/14/24 05:07 Dose: Infused Documented By: ROCÍO Sodium Chloride (Ns) 1,000 mls @ 125 mls/hr IVCONT .Q8H [facility] Last Admin: 03/14/24 08:01 Dose: Not Given Documented By: LANE Non-Admin Reason: IV Running Daptomycin 800 mg/ Sodium (Chloride) 66 mls @ 100.763 mls/hr IV Q24H [facility] Last Infusion: 03/14/24 09:01 Dose: Infused Documented By: LANE Insulin Glargine (Insulin Glargine,Hum.Rec.Anlog 100 Unit/Ml 10 Ml Vial) 20 unit SUBCUT BEDTIME [facility] Last Admin: 03/13/24 21:34 Dose: 20 unit Documented By: ROCÍO Insulin Human Lispro (Insulin Lispro 100 Unit/Ml 3 Ml Vial) 0 unit SUBCUT QIDACHS [facility]; Protocol Last Admin: 03/14/24 07:57 Dose: Not Given Documented By: LANE Non-Admin Reason: No Insulin Coverage Magnesium Hydroxide (Milk Of Magnesia 30 Ml Oral.Susp) 30 ml PO DAILY PRN PRN Reason: Constipation Melatonin (Melatonin 3 Mg Tablet) 6 mg PO BEDTIME PRN PRN Reason: Insomnia Last Admin: 03/12/24 01:54 Dose: 6 mg Documented By: JEFERSON Nicotine (Nicotine 7 Mg Patch.Td24) 7 mg TRANSDERMA DAILY [facility] Last Admin: 03/14/24 08:05 Dose: 7 mg Documented By: LANE Nicotine Polacrilex (Nicotine Polacrilex 2 Mg Gum) 2 mg BUCCAL Q1H PRN PRN Reason: Nicotine Cravings Last Admin: 03/13/24 12:03 Dose: 2 mg Documented By: CHACORTA Ondansetron HCl (Ondansetron Hcl 4 Mg/2 Ml Vial) 4 mg IVPUSH Q8H PRN PRN Reason: Nausea and Vomiting Oxycodone HCl (Oxycodone Hcl Immed Release 5 Mg Tablet) 5 mg PO Q4H PRN PRN Reason: pain, moderate to severe Last Admin: 03/13/24 08:12 Dose: 5 mg Documented By: CHACORTA Sodium Chloride (0.9 % Sodium Chloride Flush 3 Ml Syringe) [facility] Last Admin: 03/14/24 08:02 Dose: 3 ml Documented By: LANE Labs 03/14/24 05:30 03/14/24 05:30 Labs: Laboratory Results - last 24 hr 03/13/24 03/13/24 03/13/24 11:44 16:00 20:04 MCV MCH MCHC RDW Plt Count MPV Absolute Nucleated RBC Nucleated RBC % (auto) Anion Gap Estim Creat Clear Calc Estimated GFR POC Glucose 189 H 231 H 276 H Random Glucose Calcium 03/14/24 03/14/24 05:30 07:31 MCV 77.6 L MCH 27.2 MCHC 35.1 RDW 13.2 Plt Count 420 H MPV 9.2 L Absolute Nucleated RBC 0.000 Nucleated RBC % (auto) 0.0 Anion Gap 15 Estim Creat Clear Calc 51.8 Estimated GFR 41 POC Glucose 105 Random Glucose 93 Calcium 8.8 Microbiology Microbiology Results: Microbiology 03/11/24 22:08 Blood Culture - Preliminary Blood - Venous Staphylococcus aureus Strep agalactiae (Grp B) 03/11/24 21:36 Blood Culture - Preliminary Blood - Venous Strep agalactiae (Grp B) Procedures Date of Service Date of Service: 03/14/24 Progress Note: A&P Assessment and plan (1) Foot osteomyelitis, right: Status: Acute (2) Sepsis: Status: Acute Plan He has had no improvement and actually worsening necrotic changes of right foot. He has bacteremia, significant WBC, although slightly improved, remains significantly elevated. He is scheduled for echo today. Discussed need for right BKA. Technique of the procedure, risks and benefits of the procedure were discussed including infection, bleeding, poor healing and need for further amputation. He is in agreement. He has been added onto the OR schedule for tomorrow. Cont IV abx. Time Spent With Patient Time: Total time managing care of this patient today ____ minutes. Quality Stroke Does the patient have a stroke diagnosis?: No VTE Prior VTE?: No VTE Risk Level:: Medical - moderate - high VTE Device Contraindication: Treatment Not Indicated VTE Drug Contraindication: N/A - Med Ordered
--- NOTE | 2024-03-14 09:55 | HO.PM.IMPN ---
Subjective Subjective Date of Service: 03/14/24 Interval History: foot without significant improvement no fever Physical Exam Vital Signs: Vital Signs: Last Vital Signs Temp 97.3 F 03/14/24 07:29 Pulse 80 03/14/24 07:29 Resp 14 03/14/24 07:29 BP 142/75 H 03/14/24 07:29 Pulse Ox 97 03/14/24 07:29 O2 Del Method Room Air 03/14/24 07:29 O2 Flow Rate 95 03/13/24 15:21 BMI result Body Mass Index 32.5 Gen: in no acute distress HEENT: sclera anicteric, moist mucus membranes Neck: supple Lungs: clear to auscultation bilaterally Heart: regular rate and rhythm, no murmurs Abd: soft, non-tender, non-distended Ext: RLE swollen below mid-calf Skin: warm/well-perfused, R foot swollen with discoloration and necrotic changes and bogginess, purulent medial great toe ulcer Neuro: alert and oriented x3, no focal findings Psych: appropriate affect Extrem: Other: Patient has marked edema of the right lower extremity and foot. He has cellulitic process involving the right great toe. He has a dorsum of foot a large bullous. The plantar aspect also has some desquamating skin and cellulitis. The extremities grossly neurovascularly intact. Because of the marked edema, pedal pulses 1 able to be appreciated. Contralateral left foot grossly within normal limits Objective Data Active Medications Acetaminophen (Acetaminophen 325 Mg Tablet) 650 mg PO Q6H PRN PRN Reason: Pain, Mild (Pain Scale 1-3), fever or headache Calcium Carbonate (Calcium Carbonate 750 Mg Tab.Chew) 750 mg PO Q4H PRN PRN Reason: Heartburn Enoxaparin Sodium (Enoxaparin Sodium 40 Mg/0.4 Ml Syringe) 40 mg SUBCUT Q24H COUNTS INCLUDE 234 BEDS AT THE [facility] Last Admin: 03/13/24 21:34 Dose: 40 mg Documented By: ROCÍO Glucose (Glucose Gel 15 Gm Gel..Gram.) 15 gm PO Q15M PRN; Protocol PRN Reason: per Hypoglycemia Standing Ord. Dextrose (D10) 250 mls @ 750 mls/hr IV Q15M PRN; Protocol PRN Reason: per Hypoglycemia Standing Ord. Piperacillin Sod/Tazobactam (Sod 4.5 gm/ Sodium Chloride) 100 mls @ 200 mls/hr IV Q6H COUNTS INCLUDE 234 BEDS AT THE [facility] Last Admin: 03/14/24 09:29 Dose: 200 mls/hr Documented By: LANE Sodium Chloride (Ns) 1,000 mls @ 125 mls/hr IVCONT .Q8H COUNTS INCLUDE 234 BEDS AT THE [facility] Last Admin: 03/14/24 08:01 Dose: Not Given Documented By: LANE Non-Admin Reason: IV Running Daptomycin 800 mg/ Sodium (Chloride) 66 mls @ 100.763 mls/hr IV Q24H COUNTS INCLUDE 234 BEDS AT THE [facility] Last Infusion: 03/14/24 09:01 Dose: Infused Documented By: LANE Insulin Glargine (Insulin Glargine,Hum.Rec.Anlog 100 Unit/Ml 10 Ml Vial) 20 unit SUBCUT BEDTIME COUNTS INCLUDE 234 BEDS AT THE [facility] Last Admin: 03/13/24 21:34 Dose: 20 unit Documented By: ROCÍO Insulin Human Lispro (Insulin Lispro 100 Unit/Ml 3 Ml Vial) 0 unit SUBCUT QIDACHS COUNTS INCLUDE 234 BEDS AT THE [facility]; Protocol Last Admin: 03/14/24 07:57 Dose: Not Given Documented By: LANE Non-Admin Reason: No Insulin Coverage Magnesium Hydroxide (Milk Of Magnesia 30 Ml Oral.Susp) 30 ml PO DAILY PRN PRN Reason: Constipation Melatonin (Melatonin 3 Mg Tablet) 6 mg PO BEDTIME PRN PRN Reason: Insomnia Last Admin: 03/12/24 01:54 Dose: 6 mg Documented By: JEFERSON Nicotine (Nicotine 7 Mg Patch.Td24) 7 mg TRANSDERMA DAILY COUNTS INCLUDE 234 BEDS AT THE [facility] Last Admin: 03/14/24 08:05 Dose: 7 mg Documented By: LANE Nicotine Polacrilex (Nicotine Polacrilex 2 Mg Gum) 2 mg BUCCAL Q1H PRN PRN Reason: Nicotine Cravings Last Admin: 03/13/24 12:03 Dose: 2 mg Documented By: CHACORTA Ondansetron HCl (Ondansetron Hcl 4 Mg/2 Ml Vial) 4 mg IVPUSH Q8H PRN PRN Reason: Nausea and Vomiting Oxycodone HCl (Oxycodone Hcl Immed Release 5 Mg Tablet) 5 mg PO Q4H PRN PRN Reason: pain, moderate to severe Last Admin: 03/13/24 08:12 Dose: 5 mg Documented By: CHACORTA Sodium Chloride (0.9 % Sodium Chloride Flush 3 Ml Syringe) 3 ml IVFLUSH QSHIFT JERI Last Admin: 03/14/24 08:02 Dose: 3 ml Documented By: LANE Labs 03/14/24 05:30 03/14/24 05:30 Labs: Laboratory Results - last 24 hr 03/11/24 03/13/24 03/13/24 21:36 11:44 16:00 MCV MCH MCHC RDW Plt Count MPV Absolute Nucleated RBC Nucleated RBC % (auto) Smear Path Review SEE NOTE Anion Gap Estim Creat Clear Calc Estimated GFR POC Glucose 189 H 231 H Random Glucose Calcium 03/13/24 03/14/24 03/14/24 20:04 05:30 07:31 MCV 77.6 L MCH 27.2 MCHC 35.1 RDW 13.2 Plt Count 420 H MPV 9.2 L Absolute Nucleated RBC 0.000 Nucleated RBC % (auto) 0.0 Smear Path Review Anion Gap 15 Estim Creat Clear Calc 51.8 Estimated GFR 41 POC Glucose 276 H 105 Random Glucose 93 Calcium 8.8 ITS Impressions Foot X-Ray 03/11/24 21:45 IMPRESSION: Soft tissue irregularity of the great toe with subtle cortical erosion of the tuft and distal phalanx concerning for osteomyelitis. Electronically signed by: Oswaldo Abraham MD 03/11/2024 10:29 PM [facility] Foot CT 03/12/24 08:56 IMPRESSION: * Soft tissue irregularity of the distal great toe, with air in the soft tissues. Abnormal findings in the first distal phalanx, suspicious for osteomyelitis. * Foci of air along the dorsal aspect of the fifth toe. No definitive osteomyelitis is evident by CT in the underlying bones. * Extensive soft tissue swelling and subcutaneous edema/cellulitis, more prominent in the dorsal aspect of foot. * Confluent hypodense focus in the dorsal soft tissues along the skin measuring up to 5.3 cm, in the plantar soft tissues along the skin measuring up to 3.6 cm. Differential considerations include soft tissue bleb, inflammatory or infectious process. * Hypodense focus in the deep tissues/interfascial plane of the midfoot measuring 2.5 x 0.7 x 3.3 cm. Differential considerations include fluid, inflammatory, infectious process, abscess. Clinically correlate. The report will be called to the ordering clinician by a [facility] Food And Beverage Attendant. * Medial talar dome findings could reflect degenerative changes versus osteochondral lesion. Electronically signed by: Elias Emery MD 03/12/2024 12:56 PM EST RP Arterial/Peripheral Duplex 03/12/24 11:10 IMPRESSION: The JENNI on the right is 1.11 and on the left is 1.15. There is no PVR evidence to suggest hemodynamically significant arterial disease. There is no sonographic evidence of hemodynamically significant disease. Electronically signed by: Anil Kingston MD 03/14/2024 01:17 AM EST RP Renal Ultrasound 03/13/24 09:32 IMPRESSION: 1. No ultrasound evidence of renal obstruction or hydronephrosis. 2. Trace amount of free fluid around the kidneys nonspecific. Electronically signed by: Ronnie Gilman MD 03/13/2024 03:44 PM EST RP Microbiology Microbiology Results: Microbiology 03/11/24 22:08 Blood Culture - Preliminary Blood - Venous Staphylococcus aureus Strep agalactiae (Grp B) 03/11/24 21:36 Blood Culture - Preliminary Blood - Venous Strep agalactiae (Grp B) Assessment and Plan (1) Foot osteomyelitis, right: Status: Acute Plan d4 for 59yo M with no PMHx presenting with redness and ulceration of R great toe over last 10d, found to be septic from osteomyelitis with GPC bacteremia, new dx DM2 severe sepsis due to diabetic osteomyelitis/foot infection with GPC bacteremia - 03/11- vanco to changde to dapto 03/13 given LAMAR, 03/11- pip/theron, follow bacterial speciation + susceptibilties [thus far growing Staph aureus and GBS] - repeat BCx 03/14 to document clearance; if clear, BCx 03/16 then PICC for home ABX infusion; check TTE to r/o IE - Gen Surg + ID following - will need BKA, on schedule for tomorrow DM2, new dx - A1c 11.7. Started basal-bolus insulin and will need MTF + glargine upon discharge. DM teaching. Needs PCP as well. LAMAR hypoNa - prerenal, continue NS hydration VTE prophylaxis - enoxaparin dispo - may need STR vs HVNA In my clinical judgment, the patient requires continued inpatient hospitalization for the following reasons: IV ABX, bacteremia, operative intervention Total time managing care of this patient today: 40 minutes. Quality Stroke Does the patient have a stroke diagnosis?: No VTE Prior VTE?: No VTE Risk Level:: Medical - moderate - high VTE Device Contraindication: Treatment Not Indicated VTE Drug Contraindication: N/A - Med Ordered
[2024-03-14 11:33] LABS: Glucose, Whole Blood 185 mg/dL (60-115)
[2024-03-14] MEDS: Insulin Lispro 100 UNIT/ML 3 ML VIAL SUBCUT ×2 (12:05→21:03)
--- NOTE | 2024-03-14 12:54 | MHC.SHP ---
Pre-Procedural Eval Section A - 24 Hr Update-Section A only Date of Service: 03/15/24 The patient is an INPATIENT: Yes Changes since office visit: No Cold of Flu in the past 2 weeks, No New Medical Problems, No Changes in Medication and No Patient answered all questions Section B - Complete if H&P > 30 days Chief Complaint: Foot infection Allergies: Allergies Allergy/AdvReac Type Severity Reaction Status Date / Time No Known Allergies Allergy Verified 03/11/24 21:17 Plan I have reviewed the history and physical and performed a pertinent physical examination on my patient. No changes have occurred unless specified. Time Spent With Patient Time: Total time managing care of this patient today ____ minutes.
--- NOTE | 2024-03-14 13:54 | HO.WOUND ---
Wound Consult: Deferred to General Surgery 59yr old?male admitted to [facility] [place] on 03/11/24 - See progress notes and H&P for detailed history.? Wound consult placed for Right Foot wound.? Chart review reveals patient is followed by general surgery team and topical orders in place. Per chart review worsening foot / wound - general surgery following. Will defer topical recommendation to general surgery as currently patient needed greater care than topical management.
[2024-03-14 15:23] VITALS: BP 157/78; PULSE 80; RESP 16; TEMP 37.3; O2SAT 97
[2024-03-14 16:02] LABS: Glucose, Whole Blood 145 mg/dL (60-115)
[2024-03-14] MEDS: ceFAZolin Sodium 1 GM VIAL 2 GM IVPUSH (16:15)
[2024-03-14 20:47] LABS: Glucose, Whole Blood 166 mg/dL (60-115)
[2024-03-14] MEDS: Insulin Glargine,Hum.rec.anlog 100 UNIT/ML 10 ML VIAL 20 UNIT SUBCUT (21:04)
[2024-03-14 23:27] VITALS: BP 150/70; PULSE 80; RESP 16; TEMP 36.6; O2SAT 96
[2024-03-15] VITALS (22 sets, daily range): BP systolic 150–187; BP diastolic 68–89; PULSE 65–79; RESP 13–20; TEMP 36–37.1; O2SAT 91–100
[2024-03-15] MEDS: ceFAZolin Sodium/Dextrose,Iso 2 GM/50 ML PIGGYBACK IV ×2 (00:35→16:41)
[2024-03-15] MEDS: Enoxaparin Sodium 40 MG/0.4 ML SYRINGE SUBCUT ×2 (00:36→21:35)
[2024-03-15] MEDS: 0.9 % Sodium Chloride 1,000 ML 125 ML IVCONT ×3 (05:08→20:44)
[2024-03-15 06:33] LABS: Anion Gap 14 (12-20); Blood Urea Nitrogen 19 mg/dL (9-16); Calcium 8.6 mg/dL (8.4-10.2); Carbon Dioxide 21 mmol/L (22-29); Chloride 100 mmol/L (96-108); Creatinine Clr Calc Pharmacy 59.5; Estimated Glomerular Filt Rate 48; Glucose Random 82 mg/dL (60-115); Potassium 3.9 mmol/L (3.3-5.1); Sodium 131 mmol/L (135-145)
--- NOTE | 2024-03-15 09:42 | W.PM.OPN ---
Operative Note Operative Note Date of Service: 03/15/24 Narrative: Preoperative diagnosis: [] Gangrene right foot, sepsis Postop diagnosis: The same Procedure [] right below-knee amputation , long posterior myocutaneous flap Surgeon: [] Braxton Broadcast Meteorologist: [] Arlene Type of Anesthesia: [] General, tourniquet (38 minutes) Indication for surgery: [] Gangrene right foot, sepsis Findings: [] Patient brought to the operating room, placed on operative table supine position, after an adequate level of general anesthesia was induced, and a tourniquet was placed, the right foot was wrapped a sterile receptacle in the right lower extremity in leg were circumferentially prepped and draped in usual sterile fashion. Using pre measured incision lines for a long posterior myocutaneous flap, the incisions were carried and carried down through skin, subcutaneous tissue roughly 1 handsbreadth below the tibial tuberosity. Transection through anterior and medial muscular compartments was accomplished with Bovie with neurovascular bundles identified, clamped, and suture ligated x2 with 0 silk. Smaller vessels and venous structures were clamped, cut, and tied using 2-0 Vicryl ties. Fibula and tibia were identified, periosteal elevator used to clean them off proximally, and they were respectively transected with surgical saw. Anterior aspect of the tibia was beveled to voiding sharp ends and both bones were then smoothed with a rasper. The posterior muscle compartment was preserved, and well-vascularized. The specimen passed off. Tourniquet was taken down and wound was irrigated and secured hemostasis. A long posterior flaco- cutaneous flap was performed by reapproximating the distal tendinous portion of the flap to the periosteum and fascia respectively of the proximal tibia and anterior muscle respectively. This was accomplished using interrupted 0 Vicryl sutures. Skin was closed using interrupted inverted dermal 2-0 Vicryl sutures followed by Steri-Strips and sterile dressings. Fluffs followed by Kerlix wrap followed by [place] followed by knee immobilizer were then placed. Sponge, needle, and instrument counts reported correct. Patient tolerated the procedure well and emerged from anesthesia stable condition. EBL minimal
--- NOTE | 2024-03-15 09:49 | HO.ANESPROP2 ---
HPI - Anesthesia Eval Consult details Narrative: 59-year-old male with right foot gangrene presenting for BKA PMFSH Active Problems Active Problems: All Active Problems Hyperglycemia (Acute) Sepsis (Acute) Foot osteomyelitis, right (Acute) Abscess (Acute) Cellulitis (Acute) Past Medical History Medical History No pertinent past medical history Family History Family history of problems with anesthesia: No Surgical History History of Problems with Anesthesia: No Social History Social History Household Members: None Housing: Apartment Do you presently have visiting nurse or other home services: No Alcohol intake: current Alcohol intake frequency: holidays/special occasions only Patient Tobacco Use Status: Current everyday Tobacco user Tobacco use type: Cigarette Cigarettes Per Day: 15 e-Cigarette/Vaping Use: Never Used Substance Use Type: Marijuana service: No Meds Allergies Allergy/AdvReac Type Severity Reaction Status Date / Time No Known Allergies Allergy Verified 03/11/24 21:17 Active Medications: Current Medications Acetaminophen (Acetaminophen 325 Mg Tablet) 650 mg PO Q6H PRN PRN Reason: Pain, Mild (Pain Scale 1-3), fever or headache Calcium Carbonate (Calcium Carbonate 750 Mg Tab.Chew) 750 mg PO Q4H PRN PRN Reason: Heartburn Enoxaparin Sodium (Enoxaparin Sodium 40 Mg/0.4 Ml Syringe) 40 mg SUBCUT Q24H [facility] Last Admin: 03/15/24 00:36 Dose: 40 mg Glucose (Glucose Gel 15 Gm Gel..Gram.) 15 gm PO Q15M PRN; Protocol PRN Reason: per Hypoglycemia Standing Ord. Dextrose (D10) 250 mls @ 750 mls/hr IV Q15M PRN; Protocol PRN Reason: per Hypoglycemia Standing Ord. Sodium Chloride (Ns) 1,000 mls @ 125 mls/hr IVCONT .Q8H [facility] Last Admin: 03/15/24 05:08 Dose: 125 mls/hr Cefazolin Sodium/Dextrose (Ancef) 2 gm in 50 mls @ 100 mls/hr IV Q8H [facility] Last Infusion: 03/15/24 01:08 Dose: Infused Insulin Glargine (Insulin Glargine,Hum.Rec.Anlog 100 Unit/Ml 10 Ml Vial) 20 unit SUBCUT BEDTIME [facility] Last Admin: 03/14/24 21:04 Dose: 20 unit Insulin Human Lispro (Insulin Lispro 100 Unit/Ml 3 Ml Vial) 0 unit SUBCUT QIDACHS [facility]; Protocol Last Admin: 03/15/24 09:13 Dose: Not Given Magnesium Hydroxide (Milk Of Magnesia 30 Ml Oral.Susp) 30 ml PO DAILY PRN PRN Reason: Constipation Melatonin (Melatonin 3 Mg Tablet) 6 mg PO BEDTIME PRN PRN Reason: Insomnia Last Admin: 03/12/24 01:54 Dose: 6 mg Nicotine (Nicotine 7 Mg Patch.Td24) 7 mg TRANSDERMA DAILY [facility] Last Admin: 03/14/24 08:05 Dose: 7 mg Nicotine Polacrilex (Nicotine Polacrilex 2 Mg Gum) 2 mg BUCCAL Q1H PRN PRN Reason: Nicotine Cravings Last Admin: 03/13/24 12:03 Dose: 2 mg Ondansetron HCl (Ondansetron Hcl 4 Mg/2 Ml Vial) 4 mg IVPUSH Q8H PRN PRN Reason: Nausea and Vomiting Oxycodone HCl (Oxycodone Hcl Immed Release 5 Mg Tablet) 5 mg PO Q4H PRN PRN Reason: pain, moderate to severe Last Admin: 03/13/24 08:12 Dose: 5 mg Sodium Chloride (0.9 % Sodium Chloride Flush 3 Ml Syringe) [facility] Last Admin: 03/15/24 00:38 Dose: Not Given Home Medications ?Medication ?Instructions ?Recorded ?Confirmed ?Last Taken ?Type naproxen sodium 220 mg tablet 440 mg PO BID PRN Pain 03/12/24 03/12/24 Unknown History (Aleve) Exam Height,Weight and Vital Signs: Height 5 ft 8 in Weight 213 lb 10.047 oz Last Vital Signs Temp 98.7 F 03/15/24 06:54 Pulse 74 03/15/24 06:54 Resp 16 03/15/24 06:54 BP 150/78 H 03/15/24 06:54 Pulse Ox 97 03/15/24 06:54 O2 Del Method Room Air 03/15/24 06:54 O2 Flow Rate 95 03/13/24 15:21 Pertinent Lab Results Pertinent Lab Results: Laboratory Tests 03/11/24 03/11/24 03/11/24 21:36 22:08 23:13 WBC 41.6 H* RBC 4.54 L Hgb 12.4 L Hct 35.4 L MCV 78.0 L MCH 27.3 MCHC 35.0 RDW 12.9 Plt Count 487 H MPV 8.9 L Immature Gran % (Auto) 3.9 H Neut % (Auto) 86.2 H Lymph % (Auto) 3.4 L [place] % (Auto) 6.1 Eos % (Auto) 0.0 Baso % (Auto) 0.4 Lymph # (Auto) 1.4 [place] # (Auto) 2.5 H Eos # (Auto) 0.0 Baso # (Auto) 0.2 Abs Immat Gran (auto) 1.64 H Absolute Neuts (auto) 35.9 H Absolute Nucleated RBC 0.000 Nucleated RBC % (auto) 0.0 Smear Tech's Comments Smear Path Review SEE NOTE ESR 85 H PT 15.6 H INR 1.3 H Sodium 127 L Potassium 4.0 Chloride 89 L Carbon Dioxide 25 Anion Gap 17 BUN 21 H Creatinine 1.31 Estim Creat Clear Calc 68.6 Estimated GFR 56 POC Glucose Random Glucose 418 H* Estimat Average Glucose 289 Hemoglobin A1c % 11.7 H Lactic Acid 2.4 H* Lactic Acid F/U @ 2Hr Calcium 9.5 Total Bilirubin 2.1 H AST 44 H ALT 15 Alkaline Phosphatase 261 H Total Creatine Kinase 71 Troponin I High Sens 7.1 C-Reactive Protein 40.24 H Total Protein 7.5 Albumin 3.0 L Urine Color Urine Appearance Urine pH Ur Specific [place] Urine Protein Urine Glucose (UA) Urine Ketones Urine Blood Urine Nitrite Ur Leukocyte Esterase Urine RBC Urine WBC Ur Squamous Epith Cells Urine Bacteria Hyaline Casts Ur Random Sodium Urine Creatinine Urine Microalbumin Microalb/Creat Ratio Blood Type Antibody Screen 03/11/24 03/12/24 03/12/24 23:56 06:21 07:53 WBC 38.2 H* RBC 3.90 L Hgb 10.7 L Hct 30.6 L MCV 78.5 L MCH 27.4 MCHC 35.0 RDW 12.9 Plt Count 441 H MPV 9.3 L Immature Gran % (Auto) 3.4 H Neut % (Auto) 84.7 H Lymph % (Auto) 5.2 L [place] % (Auto) 6.2 Eos % (Auto) 0.1 Baso % (Auto) 0.4 Lymph # (Auto) 2.0 [place] # (Auto) 2.4 H Eos # (Auto) 0.1 Baso # (Auto) 0.2 Abs Immat Gran (auto) 1.28 H Absolute Neuts (auto) 32.3 H Absolute Nucleated RBC 0.000 Nucleated RBC % (auto) 0.0 Smear Tech's Comments VERIFIED Smear Path Review ESR PT INR Sodium 128 L Potassium 4.6 Chloride 91 L Carbon Dioxide 26 Anion Gap 16 BUN 25 H Creatinine 1.51 H Estim Creat Clear Calc 58.7 Estimated GFR 47 POC Glucose 250 H Random Glucose 285 H Estimat Average Glucose Hemoglobin A1c % Lactic Acid Lactic Acid F/U @ 2Hr 1.3 Calcium 9.3 Total Bilirubin AST ALT Alkaline Phosphatase Total Creatine Kinase Troponin I High Sens C-Reactive Protein Total Protein Albumin Urine Color Urine Appearance Urine pH Ur Specific [place] Urine Protein Urine Glucose (UA) Urine Ketones Urine Blood Urine Nitrite Ur Leukocyte Esterase Urine RBC Urine WBC Ur Squamous Epith Cells Urine Bacteria Hyaline Casts Ur Random Sodium Urine Creatinine Urine Microalbumin Microalb/Creat Ratio Blood Type Antibody Screen 03/12/24 03/12/24 03/12/24 12:08 16:08 20:11 WBC RBC Hgb Hct MCV MCH MCHC RDW Plt Count MPV Immature Gran % (Auto) Neut % (Auto) Lymph % (Auto) [place] % (Auto) Eos % (Auto) Baso % (Auto) Lymph # (Auto) [place] # (Auto) Eos # (Auto) Baso # (Auto) Abs Immat Gran (auto) Absolute Neuts (auto) Absolute Nucleated RBC Nucleated RBC % (auto) Smear Tech's Comments Smear Path Review ESR PT INR Sodium Potassium Chloride Carbon Dioxide Anion Gap BUN Creatinine Estim Creat Clear Calc Estimated GFR POC Glucose 107 161 H 217 H Random Glucose Estimat Average Glucose Hemoglobin A1c % Lactic Acid Lactic Acid F/U @ 2Hr Calcium Total Bilirubin AST ALT Alkaline Phosphatase Total Creatine Kinase Troponin I High Sens C-Reactive Protein Total Protein Albumin Urine Color Urine Appearance Urine pH Ur Specific [place] Urine Protein Urine Glucose (UA) Urine Ketones Urine Blood Urine Nitrite Ur Leukocyte Esterase Urine RBC Urine WBC Ur Squamous Epith Cells Urine Bacteria Hyaline Casts Ur Random Sodium Urine Creatinine Urine Microalbumin Microalb/Creat Ratio Blood Type Antibody Screen 03/13/24 03/13/24 03/13/24 05:25 07:42 08:40 WBC 31.4 H* RBC 3.98 L Hgb 11.0 L Hct 30.6 L MCV 76.9 L MCH 27.6 MCHC 35.9 RDW 13.0 Plt Count 399 MPV 8.8 L Immature Gran % (Auto) Neut % (Auto) Lymph % (Auto) [place] % (Auto) Eos % (Auto) Baso % (Auto) Lymph # (Auto) [place] # (Auto) Eos # (Auto) Baso # (Auto) Abs Immat Gran (auto) Absolute Neuts (auto) Absolute Nucleated RBC 0.000 Nucleated RBC % (auto) 0.0 Smear Tech's Comments Smear Path Review ESR PT INR Sodium 129 L Potassium 3.8 Chloride 95 L Carbon Dioxide 23 Anion Gap 15 BUN 27 H Creatinine 1.78 H Estim Creat Clear Calc 49.8 Estimated GFR 39 POC Glucose 92 Random Glucose 84 Estimat Average Glucose Hemoglobin A1c % Lactic Acid Lactic Acid F/U @ 2Hr Calcium 9.1 Total Bilirubin AST ALT Alkaline Phosphatase Total Creatine Kinase Troponin I High Sens C-Reactive Protein Total Protein Albumin Urine Color Dark Yellow Urine Appearance Cloudy Urine pH 5.5 Ur Specific [place] 1.025 Urine Protein 30 (1+) H Urine Glucose (UA) Negative Urine Ketones Trace Urine Blood Small (1+) H Urine Nitrite Negative Ur Leukocyte Esterase Negative Urine RBC 3-5 H Urine WBC 0-5 Ur Squamous Epith Cells 3-5 Urine Bacteria None Seen Hyaline Casts 0-2 Ur Random Sodium < 20.0 Urine Creatinine 130.16 Urine Microalbumin 76.0 Microalb/Creat Ratio 58.3 H Blood Type Antibody Screen 03/13/24 03/13/24 03/13/24 11:44 16:00 20:04 WBC RBC Hgb Hct MCV MCH MCHC RDW Plt Count MPV Immature Gran % (Auto) Neut % (Auto) Lymph % (Auto) [place] % (Auto) Eos % (Auto) Baso % (Auto) Lymph # (Auto) [place] # (Auto) Eos # (Auto) Baso # (Auto) Abs Immat Gran (auto) Absolute Neuts (auto) Absolute Nucleated RBC Nucleated RBC % (auto) Smear Tech's Comments Smear Path Review ESR PT INR Sodium Potassium Chloride Carbon Dioxide Anion Gap BUN Creatinine Estim Creat Clear Calc Estimated GFR POC Glucose 189 H 231 H 276 H Random Glucose Estimat Average Glucose Hemoglobin A1c % Lactic Acid Lactic Acid F/U @ 2Hr Calcium Total Bilirubin AST ALT Alkaline Phosphatase Total Creatine Kinase Troponin I High Sens C-Reactive Protein Total Protein Albumin Urine Color Urine Appearance Urine pH Ur Specific [place] Urine Protein Urine Glucose (UA) Urine Ketones Urine Blood Urine Nitrite Ur Leukocyte Esterase Urine RBC Urine WBC Ur Squamous Epith Cells Urine Bacteria Hyaline Casts Ur Random Sodium Urine Creatinine Urine Microalbumin Microalb/Creat Ratio Blood Type Antibody Screen 03/14/24 03/14/24 03/14/24 05:30 07:31 11:26 WBC 28.9 H RBC 3.93 L Hgb 10.7 L Hct 30.5 L MCV 77.6 L MCH 27.2 MCHC 35.1 RDW 13.2 Plt Count 420 H MPV 9.2 L Immature Gran % (Auto) Neut % (Auto) Lymph % (Auto) [place] % (Auto) Eos % (Auto) Baso % (Auto) Lymph # (Auto) [place] # (Auto) Eos # (Auto) Baso # (Auto) Abs Immat Gran (auto) Absolute Neuts (auto) Absolute Nucleated RBC 0.000 Nucleated RBC % (auto) 0.0 Smear Tech's Comments Smear Path Review ESR PT INR Sodium 130 L Potassium 3.5 Chloride 97 Carbon Dioxide 22 Anion Gap 15 BUN 23 H Creatinine 1.71 H Estim Creat Clear Calc 51.8 Estimated GFR 41 POC Glucose 105 185 H Random Glucose 93 Estimat Average Glucose Hemoglobin A1c % Lactic Acid Lactic Acid F/U @ 2Hr Calcium 8.8 Total Bilirubin AST ALT Alkaline Phosphatase Total Creatine Kinase Troponin I High Sens C-Reactive Protein Total Protein Albumin Urine Color Urine Appearance Urine pH Ur Specific [place] Urine Protein Urine Glucose (UA) Urine Ketones Urine Blood Urine Nitrite Ur Leukocyte Esterase Urine RBC Urine WBC Ur Squamous Epith Cells Urine Bacteria Hyaline Casts Ur Random Sodium Urine Creatinine Urine Microalbumin Microalb/Creat Ratio Blood Type Antibody Screen 03/14/24 03/14/24 03/14/24 15:41 15:56 20:42 WBC RBC Hgb Hct MCV MCH MCHC RDW Plt Count MPV Immature Gran % (Auto) Neut % (Auto) Lymph % (Auto) [place] % (Auto) Eos % (Auto) Baso % (Auto) Lymph # (Auto) [place] # (Auto) Eos # (Auto) Baso # (Auto) Abs Immat Gran (auto) Absolute Neuts (auto) Absolute Nucleated RBC Nucleated RBC % (auto) Smear Tech's Comments Smear Path Review ESR PT INR Sodium Potassium Chloride Carbon Dioxide Anion Gap BUN Creatinine Estim Creat Clear Calc Estimated GFR POC Glucose 145 H 166 H Random Glucose Estimat Average Glucose Hemoglobin A1c % Lactic Acid Lactic Acid F/U @ 2Hr Calcium Total Bilirubin AST ALT Alkaline Phosphatase Total Creatine Kinase Troponin I High Sens C-Reactive Protein Total Protein Albumin Urine Color Urine Appearance Urine pH Ur Specific [place] Urine Protein Urine Glucose (UA) Urine Ketones Urine Blood Urine Nitrite Ur Leukocyte Esterase Urine RBC Urine WBC Ur Squamous Epith Cells Urine Bacteria Hyaline Casts Ur Random Sodium Urine Creatinine Urine Microalbumin Microalb/Creat Ratio Blood Type B Positive Antibody Screen NEGATIVE 03/15/24 05:25 WBC RBC Hgb Hct MCV MCH MCHC RDW Plt Count MPV Immature Gran % (Auto) Neut % (Auto) Lymph % (Auto) [place] % (Auto) Eos % (Auto) Baso % (Auto) Lymph # (Auto) [place] # (Auto) Eos # (Auto) Baso # (Auto) Abs Immat Gran (auto) Absolute Neuts (auto) Absolute Nucleated RBC Nucleated RBC % (auto) Smear Tech's Comments Smear Path Review ESR PT INR Sodium 131 L Potassium 3.9 Chloride 100 Carbon Dioxide 21 L Anion Gap 14 BUN 19 H Creatinine 1.49 H Estim Creat Clear Calc 59.5 Estimated GFR 48 POC Glucose Random Glucose 82 Estimat Average Glucose Hemoglobin A1c % Lactic Acid Lactic Acid F/U @ 2Hr Calcium 8.6 Total Bilirubin AST ALT Alkaline Phosphatase Total Creatine Kinase Troponin I High Sens C-Reactive Protein Total Protein Albumin Urine Color Urine Appearance Urine pH Ur Specific [place] Urine Protein Urine Glucose (UA) Urine Ketones Urine Blood Urine Nitrite Ur Leukocyte Esterase Urine RBC Urine WBC Ur Squamous Epith Cells Urine Bacteria Hyaline Casts Ur Random Sodium Urine Creatinine Urine Microalbumin Microalb/Creat Ratio Blood Type Antibody Screen Airway Mallampati Class: II TM Dist: >3cm Neck ROM: Full Loose/Missing/Broken Teeth: Yes Assessment and Plan Assessment Anesthesia Assessment: Anesthesia Plan Discussed and Chart Reviewed Final Anesthetic Review Family History of Problems with Anesthesia: No History of Problems with Anesthesia: No NPO: Yes ASA Class: III Final Preanesthetic Review: No Changes in Pt Med Stat, Meds/Allgs Chart Reviewed, Consent Obtained/Reviewed and Anes Risks/Benef Reviewed Patient Risk: Intermediate Procedure Risk: Intermediate Anesthetic Plan Anesthetic Plan: GA Disposition: Standard PACU
[2024-03-15] MEDS: HYDROmorphone HCl 0.5 MG/0.5 ML SYRINGE IVPUSH ×6 (10:13→17:29)
[2024-03-15] MEDS: Acetaminophen 1,000 MG/100 ML PIGGYBACK 400 MG IV ×3 (10:16→21:35)
[2024-03-15 10:21] LABS: Glucose, Whole Blood 94 mg/dL (60-115)
[2024-03-15 11:46] LABS: Glucose, Whole Blood 104 mg/dL (60-115)
[2024-03-15] MEDS: oxyCODONE HCl Immed Release 5 MG TABLET PO (12:10)
--- NOTE | 2024-03-15 12:50 | PC.NURSE ---
BP elevated on admission from PACU 176/68 pulse 70,medicated with Roxicodone for pain,Dilaudid not due till 1340,rechecked BP 187/89 pulse 65 at present ,Dr. Escobar notified
--- NOTE | 2024-03-15 13:20 | P.PNIM_ITS ---
Subjective Subjective Date of Service: 03/15/24 Interval History: back from OR, in pain no fever repeat BCx negative thus far Review of Systems Review of Systems: Yes all other systems are reviewed and are negative Physical Exam 2 Vital Signs: Vital Signs: Last Vital Signs Temp 96.8 F 03/15/24 12:21 Pulse 65 03/15/24 12:49 Resp 18 03/15/24 12:21 BP 187/89 H 03/15/24 12:49 Pulse Ox 96 03/15/24 12:21 O2 Del Method Room Air 03/15/24 12:21 O2 Flow Rate 2 03/15/24 10:43 BMI result Body Mass Index 32.5 Gen: in no acute distress HEENT: sclera anicteric, moist mucus membranes Neck: supple Lungs: clear to auscultation bilaterally Heart: regular rate and rhythm, no murmurs Abd: soft, non-tender, non-distended Ext: s/p R BKA Skin: warm/well-perfused Neuro: alert and oriented x3, no focal findings Psych: appropriate affect Objective Data Active Medications Calcium Carbonate (Calcium Carbonate 750 Mg Tab.Chew) 750 mg PO Q4H PRN PRN Reason: Heartburn Enoxaparin Sodium (Enoxaparin Sodium 40 Mg/0.4 Ml Syringe) 40 mg SUBCUT Q24H [facility] Last Admin: 03/15/24 00:36 Dose: 40 mg Documented By: JUAN Glucose (Glucose Gel 15 Gm Gel..Gram.) 15 gm PO Q15M PRN; Protocol PRN Reason: per Hypoglycemia Standing Ord. Hydromorphone HCl (Hydromorphone Hcl 0.5 Mg/0.5 Ml Syringe) 0.5 mg IVPUSH Q3H PRN; Protocol PRN Reason: Pain, Severe (Pain Scale 7-10) Dextrose (D10) 250 mls @ 750 mls/hr IV Q15M PRN; Protocol PRN Reason: per Hypoglycemia Standing Ord. Sodium Chloride (Ns) 1,000 mls @ 125 mls/hr IVCONT .Q8H [facility] Last Admin: 03/15/24 12:11 Dose: 125 mls/hr Documented By: LANE Cefazolin Sodium/Dextrose (Ancef) 2 gm in 50 mls @ 100 mls/hr IV Q8H [facility] Last Admin: 03/15/24 11:52 Dose: Not Given Documented By: LANE Non-Admin Reason: Off Unit: Surgery Acetaminophen (Ofirmev) 1,000 mg in 100 mls @ 400 mls/hr IV Q6H [facility] Insulin Glargine (Insulin Glargine,Hum.Rec.Anlog 100 Unit/Ml 10 Ml Vial) 20 unit SUBCUT BEDTIME [facility] Last Admin: 03/14/24 21:04 Dose: 20 unit Documented By: JUAN Insulin Human Lispro (Insulin Lispro 100 Unit/Ml 3 Ml Vial) 0 unit SUBCUT QIDACHS [facility]; Protocol Last Admin: 03/15/24 11:53 Dose: Not Given Documented By: LANE Non-Admin Reason: No Insulin Coverage Magnesium Hydroxide (Milk Of Magnesia 30 Ml Oral.Susp) 30 ml PO DAILY PRN PRN Reason: Constipation Melatonin (Melatonin 3 Mg Tablet) 6 mg PO BEDTIME PRN PRN Reason: Insomnia Last Admin: 03/12/24 01:54 Dose: 6 mg Documented By: JEFERSON Naloxone HCl (Naloxone Hcl 0.4 Mg/Ml Vial) 0.04 mg IVPUSH Q5M PRN PRN Reason: Excessive sedation or RR < 8 Nicotine (Nicotine 7 Mg Patch.Td24) 7 mg TRANSDERMA DAILY [facility] Last Admin: 03/15/24 12:11 Dose: Not Given Documented By: LANE Non-Admin Reason: Off Unit: Surgery Nicotine Polacrilex (Nicotine Polacrilex 2 Mg Gum) 2 mg BUCCAL Q1H PRN PRN Reason: Nicotine Cravings Last Admin: 03/13/24 12:03 Dose: 2 mg Documented By: CHACORTA Ondansetron HCl (Ondansetron Hcl 4 Mg/2 Ml Vial) 4 mg IVPUSH Q8H PRN PRN Reason: Nausea and Vomiting Oxycodone HCl (Oxycodone Hcl Immed Release 5 Mg Tablet) 5 mg PO Q4H PRN PRN Reason: pain, moderate to severe Last Admin: 03/15/24 12:10 Dose: 5 mg Documented By: LANE Sodium Chloride (0.9 % Sodium Chloride Flush 3 Ml Syringe) 3 ml IVFLUSH QSHIFT [facility] Last Admin: 03/15/24 11:50 Dose: Not Given Documented By: LANE Non-Admin Reason: Off Unit: Surgery Labs 03/14/24 05:30 03/15/24 05:25 Labs: Laboratory Results - last 24 hr 03/14/24 03/14/24 03/14/24 15:41 15:56 20:42 Anion Gap Estim Creat Clear Calc Estimated GFR POC Glucose 145 H 166 H Random Glucose Calcium Blood Type B Positive Antibody Screen NEGATIVE 03/15/24 03/15/24 03/15/24 05:25 10:17 11:41 Anion Gap 14 Estim Creat Clear Calc 59.5 Estimated GFR 48 POC Glucose 94 104 Random Glucose 82 Calcium 8.6 Blood Type Antibody Screen Microbiology Microbiology Results: Microbiology 03/14/24 05:38 Blood Culture - Preliminary Blood - Venous No growth after 24 hours. 03/14/24 05:30 Blood Culture - Preliminary Blood - Venous No growth after 24 hours. 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 Total duration of therapy 4 wk from clear culture per ID - TTE 03/14: - The left ventricular systolic function is normal. The calculated ejection fraction is 68% by biplane method. - The basal inferior segment is akinetic. - The basal inferolateral segment is hypokinetic. - There is mild calcification of the aortic valve. Cannot exclude vegetation. - s/p BKA 03/[address] Limon DM2, new dx - A1c 11.7. Started basal-bolus insulin and will need MTF + glargine upon discharge. DM teaching. Needs PCP as well. LAMAR hypoNa - prerenal, continue NS hydration; improving VTE prophylaxis - enoxaparin dispo - STR In my clinical judgment, the patient requires continued inpatient hospitalization for the following reasons: IV ABX, bacteremia, operative intervention Total time managing care of this patient today: 40 minutes. Quality Stroke Does the patient have a stroke diagnosis?: No VTE Prior VTE?: No VTE Risk Level:: Medical - moderate - high VTE Device Contraindication: Treatment Not Indicated VTE Drug Contraindication: N/A - Med Ordered
[2024-03-15 16:10] LABS: Glucose, Whole Blood 244 mg/dL (60-115)
[2024-03-15] MEDS: 0.9 % Sodium Chloride Flush 3 ML SYRINGE IVFLUSH (16:14)
[2024-03-15] MEDS: Insulin Lispro 100 UNIT/ML 3 ML VIAL SUBCUT ×2 (16:20→20:44)
--- NOTE | 2024-03-15 16:56 | PC.NURSE ---
BP elevated 176/88 pulse 67,Dr. Escobar notified,patient resting comfortably
[2024-03-15] MEDS: oxyCODONE HCl Immed Release 5 MG TABLET 10 MG PO (19:21)
[2024-03-15 20:11] LABS: Glucose, Whole Blood 291 mg/dL (60-115)
[2024-03-15] MEDS: Insulin Glargine,Hum.rec.anlog 100 UNIT/ML 10 ML VIAL 20 UNIT SUBCUT (20:43)
[2024-03-16] MEDS: HYDROmorphone HCl 0.5 MG/0.5 ML SYRINGE IVPUSH ×2 (01:27→15:58)
[2024-03-16] MEDS: ceFAZolin Sodium/Dextrose,Iso 2 GM/50 ML PIGGYBACK IV ×3 (01:27→16:43)
[2024-03-16] MEDS: oxyCODONE HCl Immed Release 5 MG TABLET 10 MG PO ×2 (04:20→08:50)
[2024-03-16] MEDS: Acetaminophen 1,000 MG/100 ML PIGGYBACK 400 MG IV ×4 (04:22→22:30)
[2024-03-16] MEDS: 0.9 % Sodium Chloride 1,000 ML 125 ML IVCONT ×2 (04:48→13:07)
[2024-03-16 07:18] VITALS: BP 177/78; PULSE 74; RESP 16; TEMP 36.6; O2SAT 97
[2024-03-16 07:38] LABS: Glucose, Whole Blood 230 mg/dL (60-115)
[2024-03-16] MEDS: Insulin Lispro 100 UNIT/ML 3 ML VIAL SUBCUT ×4 (07:49→19:44)
[2024-03-16] MEDS: 0.9 % Sodium Chloride Flush 3 ML SYRINGE IVFLUSH (07:50)
[2024-03-16] MEDS: Nicotine 7 MG PATCH.TD24 TRANSDERMA (07:51)
[2024-03-16 08:05] LABS: Hematocrit 29.4 % (42.0-52.0); Mean Corpuscular Volume 79.5 fL (80.0-98.0); Mean Platelet Volume 9.1 fL (9.4-12.4); Platelet Count 422 X10*3/uL (160-400); White Blood Count 25.7 X10*3/uL (4.8-10.8)
[2024-03-16 08:06] LABS: Hematocrit 29.5 % (42.0-52.0); Hemoglobin 10.1 g/dl (14.0-18.0); Mean Corpuscular HGB Conc 34.2 g/dl (31.0-36.0); Mean Corpuscular Hemoglobin 27.2 pg (27.0-33.0); Mean Corpuscular Volume 79.3 fL (80.0-98.0); Mean Platelet Volume 9.3 fL (9.4-12.4); Platelet Count 422 X10*3/uL (160-400); Red Blood Count 3.72 X10*6/uL (4.60-5.80); White Blood Count 25.8 X10*3/uL (4.8-10.8)
[2024-03-16 08:21] LABS: Anion Gap 14 (12-20); Blood Urea Nitrogen 16 mg/dL (9-16); Carbon Dioxide 22 mmol/L (22-29); Chloride 101 mmol/L (96-108); Creatinine Clr Calc Pharmacy 70.9; Estimated Glomerular Filt Rate 59; Glucose Fasting 268 mg/dL (60-99); Potassium 4.5 mmol/L (3.3-5.1); Sodium 132 mmol/L (135-145)
[2024-03-16 08:43] LABS: Atypical Lymph Absolute Manual 0.5 x10*3/uL; Atypical Lymphs Percent Manual 2 % (0-6); Band Neutrophils Percent 6 % (3-5); Eosinophils Absolute Manual 0.3 X10*3/uL (0.0-0.4); Eosinophils Percent Manual 1 % (0-4); Lymphocytes Absolute Manual 2.6 X10*3/uL (1.2-4.9); Lymphocytes Percent Manual 10 % (20-40); Macrocytosis 1+ (5-14) /OIF; Metamyelocytes Absolute 0.3 X10*3/uL; Metamyelocytes Percent 1 %; Microcytosis 1+ (5-14) /OIF; Monocytes Absolute Manual 1.5 X10*3/uL (0.1-1.2); Monocytes Percent Manual 6 % (2-11); Neutrophils Absolute Manual 20.6 X10*3/uL (2.0-8.3); Neutrophils Percent Manual 74 % (45-73); RBC Morphology NORMAL
[2024-03-16 08:44] LABS: Large Platelet PRESENT; Platelet Estimate NORMAL (NORMAL); Platelet Morphology Comment NORMAL
--- NOTE | 2024-03-16 08:44 | P.PNGS_ITS ---
Subjective Subjective Date of Service: 03/16/24 Interval history: Aside from incisional discomfort which is controlled with analgesia, patient had uneventful evening. Physical Exam 2 Vital Signs: Vital Signs: Last Vital Signs Temp 97.8 F 03/16/24 07:18 Pulse 74 03/16/24 07:18 Resp 16 03/16/24 07:18 BP 177/78 H 03/16/24 07:18 Pulse Ox 97 03/16/24 07:18 O2 Del Method Room Air 03/16/24 07:18 O2 Flow Rate 2 03/15/24 10:43 BMI result Body Mass Index 32.5 Extrem: Other: Dressing clean dry and intact. Splint in place. Objective Data Active Medications Calcium Carbonate (Calcium Carbonate 750 Mg Tab.Chew) 750 mg PO Q4H PRN PRN Reason: Heartburn Enoxaparin Sodium (Enoxaparin Sodium 40 Mg/0.4 Ml Syringe) 40 mg SUBCUT Q24H [facility] Last Admin: 03/15/24 21:35 Dose: 40 mg Documented By: ROCÍO Glucose (Glucose Gel 15 Gm Gel..Gram.) 15 gm PO Q15M PRN; Protocol PRN Reason: per Hypoglycemia Standing Ord. Hydromorphone HCl (Hydromorphone Hcl 0.5 Mg/0.5 Ml Syringe) 0.5 mg IVPUSH Q3H PRN; Protocol PRN Reason: Pain, Severe (Pain Scale 7-10) Last Admin: 03/16/24 01:27 Dose: 0.5 mg Documented By: ROCÍO Dextrose (D10) 250 mls @ 750 mls/hr IV Q15M PRN; Protocol PRN Reason: per Hypoglycemia Standing Ord. Sodium Chloride (Ns) 1,000 mls @ 125 mls/hr IVCONT .Q8H [facility] Last Admin: 03/16/24 04:48 Dose: 125 mls/hr Documented By: ROCÍO Cefazolin Sodium/Dextrose (Ancef) 2 gm in 50 mls @ 100 mls/hr IV Q8H [facility] Last Admin: 03/16/24 07:49 Dose: 100 mls/hr Documented By: LASHELL Acetaminophen (Ofirmev) 1,000 mg in 100 mls @ 400 mls/hr IV Q6H [facility] Last Infusion: 03/16/24 04:46 Dose: Infused Documented By: ROCÍO Insulin Glargine (Insulin Glargine,Hum.Rec.Anlog 100 Unit/Ml 10 Ml Vial) 20 unit SUBCUT BEDTIME [facility] Last Admin: 03/15/24 20:43 Dose: 20 unit Documented By: ROCÍO Insulin Human Lispro (Insulin Lispro 100 Unit/Ml 3 Ml Vial) 0 unit SUBCUT QIDACHS [facility]; Protocol Last Admin: 03/16/24 07:49 Dose: 4 unit Documented By: LASHELL Lisinopril (Lisinopril 10 Mg Tablet) 10 mg PO DAILY [facility]; Protocol Magnesium Hydroxide (Milk Of Magnesia 30 Ml Oral.Susp) 30 ml PO DAILY PRN PRN Reason: Constipation Melatonin (Melatonin 3 Mg Tablet) 6 mg PO BEDTIME PRN PRN Reason: Insomnia Last Admin: 03/12/24 01:54 Dose: 6 mg Documented By: JEFERSON Naloxone HCl (Naloxone Hcl 0.4 Mg/Ml Vial) 0.04 mg IVPUSH Q5M PRN PRN Reason: Excessive sedation or RR < 8 Nicotine (Nicotine 7 Mg Patch.Td24) 7 mg TRANSDERMA DAILY [facility] Last Admin: 03/16/24 07:51 Dose: 7 mg Documented By: LASHELL Nicotine Polacrilex (Nicotine Polacrilex 2 Mg Gum) 2 mg BUCCAL Q1H PRN PRN Reason: Nicotine Cravings Last Admin: 03/13/24 12:03 Dose: 2 mg Documented By: CHACORTA Ondansetron HCl (Ondansetron Hcl 4 Mg/2 Ml Vial) 4 mg IVPUSH Q8H PRN PRN Reason: Nausea and Vomiting Oxycodone HCl (Oxycodone Hcl Immed Release 5 Mg Tablet) 10 mg PO Q4H PRN PRN Reason: pain, moderate to severe Last Admin: 03/16/24 04:20 Dose: 10 mg Documented By: ROCÍO Sodium Chloride (0.9 % Sodium Chloride Flush 3 Ml Syringe) 3 [facility] Last Admin: 03/16/24 07:50 Dose: 3 ml Documented By: LASHELL Labs 03/16/24 07:20 03/16/24 07:20 Labs: Laboratory Results - last 24 hr 03/15/24 03/15/24 03/15/24 10:17 11:41 16:02 MCV MCH MCHC RDW Plt Count MPV Immature Gran % (Auto) Neut % (Auto) Lymph % (Auto) [place] % (Auto) Eos % (Auto) Baso % (Auto) Lymph # (Auto) [place] # (Auto) Eos # (Auto) Baso # (Auto) Abs Immat Gran (auto) Absolute Neuts (auto) Absolute Nucleated RBC Nucleated RBC % (auto) Anion Gap Estim Creat Clear Calc Estimated GFR POC Glucose 94 104 244 H Fasting Glucose Calcium 03/15/24 03/16/24 03/16/24 19:55 07:20 07:20 MCV 79.3 L 79.5 L MCH 27.2 MCHC RDW Plt Count MPV Immature Gran % (Auto) Neut % (Auto) Lymph % (Auto) [place] % (Auto) Eos % (Auto) Baso % (Auto) Lymph # (Auto) [place] # (Auto) Eos # (Auto) Baso # (Auto) Abs Immat Gran (auto) Absolute Neuts (auto) Absolute Nucleated RBC Nucleated RBC % (auto) Anion Gap Estim Creat Clear Calc Estimated GFR POC Glucose 291 H Fasting Glucose Calcium 03/16/24 03/16/24 03/16/24 07:20 07:20 07:20 MCV MCH 27.0 MCHC 34.2 34.0 RDW 14.0 14.0 Plt Count 422 H MPV Immature Gran % (Auto) Neut % (Auto) Lymph % (Auto) [place] % (Auto) Eos % (Auto) Baso % (Auto) Lymph # (Auto) [place] # (Auto) Eos # (Auto) Baso # (Auto) Abs Immat Gran (auto) Absolute Neuts (auto) Absolute Nucleated RBC Nucleated RBC % (auto) Anion Gap Estim Creat Clear Calc Estimated GFR POC Glucose Fasting Glucose Calcium 03/16/24 03/16/24 03/16/24 07:20 07:20 07:20 MCV MCH MCHC RDW Plt Count 422 H MPV 9.3 L 9.1 L Immature Gran % (Auto) Cancelled Neut % (Auto) Cancelled Lymph % (Auto) Cancelled [place] % (Auto) Cancelled Eos % (Auto) Cancelled Baso % (Auto) Cancelled Lymph # (Auto) Cancelled [place] # (Auto) Cancelled Eos # (Auto) Cancelled Baso # (Auto) Cancelled Abs Immat Gran (auto) Cancelled Absolute Neuts (auto) Cancelled Absolute Nucleated RBC 0.000 0.000 Nucleated RBC % (auto) 0.0 Anion Gap Estim Creat Clear Calc Estimated GFR POC Glucose Fasting Glucose Calcium 03/16/24 03/16/24 07:20 07:23 MCV MCH MCHC RDW Plt Count MPV Immature Gran % (Auto) Neut % (Auto) Lymph % (Auto) [place] % (Auto) Eos % (Auto) Baso % (Auto) Lymph # (Auto) [place] # (Auto) Eos # (Auto) Baso # (Auto) Abs Immat Gran (auto) Absolute Neuts (auto) Absolute Nucleated RBC Nucleated RBC % (auto) 0.0 Anion Gap 14 Estim Creat Clear Calc 70.9 Estimated GFR 59 POC Glucose 230 H Fasting Glucose 268 H Calcium 8.0 L D Microbiology Microbiology Results: Microbiology 03/14/24 05:30 Blood Culture - Preliminary Blood - Venous No growth after 48 hours. 03/14/24 05:38 Blood Culture - Preliminary Blood - Venous No growth after 48 hours. Procedures Date of Service Date of Service: 03/16/24 Progress Note: A&P Assessment and plan (1) Status post below knee amputation of right lower extremity: Status: Acute Plan Postop day 1 status post right BKA. Encourage incentive spirometry, diet as tolerated, out of bed to chair if possible. Time Spent With Patient Time: Total time managing care of this patient today ____ minutes. Quality Stroke Does the patient have a stroke diagnosis?: No VTE Prior VTE?: No VTE Risk Level:: Medical - moderate - high VTE Device Contraindication: Treatment Not Indicated VTE Drug Contraindication: N/A - Med Ordered
[2024-03-16 08:45] LABS: Target Cells 1+ (5-14) /OIF
[2024-03-16 08:46] LABS: Toxic Granulation PRESENT
[2024-03-16 08:53] VITALS: BP 173/87
[2024-03-16] MEDS: lisinopriL 10 MG TABLET PO (08:53)
--- NOTE | 2024-03-16 09:39 | HO.POSTANES ---
Post Anesthesia Evaluation Post Anesthesia Evaluation Date of Service: 03/16/24 Vital Signs: Vital Signs Temp Pulse Resp BP Pulse Ox O2 Del Method 03/16/24 08:53 173/87 H 03/16/24 07:18 97.8 F 74 16 177/78 H 97 Room Air 03/15/24 23:14 97.4 F 72 16 168/80 H 96 Room Air Anesthesia: General LMA Mental Status: Awake Pain Control: Satisfactory Nausea/Vomiting: None Hydration: Adequate Anesthesia-Related Issues: No Anes. Related Issues
[2024-03-16 11:06] LABS: Glucose, Whole Blood 230 mg/dL (60-115)
--- NOTE | 2024-03-16 14:12 | HO.PM.IMPN ---
Subjective Subjective Date of Service: 03/16/24 Interval History: postop pain controlled no fever bacteremia resolved Review of Systems Review of Systems: Yes all other systems are reviewed and are negative Physical Exam Vital Signs: Vital Signs: Last Vital Signs Temp 97.8 F 03/16/24 07:18 Pulse 74 03/16/24 07:18 Resp 16 03/16/24 07:18 BP 173/87 H 03/16/24 08:53 Pulse Ox 97 03/16/24 07:18 O2 Del Method Room Air 03/16/24 07:18 O2 Flow Rate 2 03/15/24 10:43 BMI result Body Mass Index 32.5 Gen: in no acute distress HEENT: sclera anicteric, moist mucus membranes Neck: supple Lungs: clear to auscultation bilaterally Heart: regular rate and rhythm, no murmurs Abd: soft, non-tender, non-distended Ext: s/p R BKA, dry dressing Skin: warm/well-perfused Neuro: alert and oriented x3, no focal findings Psych: appropriate affect Objective Data Active Medications Calcium Carbonate (Calcium Carbonate 750 Mg Tab.Chew) 750 mg PO Q4H PRN PRN Reason: Heartburn Enoxaparin Sodium (Enoxaparin Sodium 40 Mg/0.4 Ml Syringe) 40 mg SUBCUT Q24H [facility] Last Admin: 03/15/24 21:35 Dose: 40 mg Documented By: ROCÍO Glucose (Glucose Gel 15 Gm Gel..Gram.) 15 gm PO Q15M PRN; Protocol PRN Reason: per Hypoglycemia Standing Ord. Hydromorphone HCl (Hydromorphone Hcl 0.5 Mg/0.5 Ml Syringe) 0.5 mg IVPUSH Q3H PRN; Protocol PRN Reason: Pain, Severe (Pain Scale 7-10) Last Admin: 03/16/24 01:27 Dose: 0.5 mg Documented By: ROCÍO Dextrose (D10) 250 mls @ 750 mls/hr IV Q15M PRN; Protocol PRN Reason: per Hypoglycemia Standing Ord. Sodium Chloride (Ns) 1,000 mls @ 125 mls/hr IVCONT .Q8H [facility] Last Admin: 03/16/24 13:07 Dose: 125 mls/hr Documented By: LASHELL Cefazolin Sodium/Dextrose (Ancef) 2 gm in 50 mls @ 100 mls/hr IV Q8H [facility] Last Infusion: 03/16/24 08:54 Dose: Infused Documented By: LASHELL Acetaminophen (Ofirmev) 1,000 mg in 100 mls @ 400 mls/hr IV Q6H [facility] Last Infusion: 03/16/24 10:31 Dose: Infused Documented By: LASHELL Insulin Glargine (Insulin Glargine,Hum.Rec.Anlog 100 Unit/Ml 10 Ml Vial) 20 unit SUBCUT BEDTIME [facility] Last Admin: 03/15/24 20:43 Dose: 20 unit Documented By: ROCÍO Insulin Human Lispro (Insulin Lispro 100 Unit/Ml 3 Ml Vial) 0 unit SUBCUT QIDACHS [facility]; Protocol Last Admin: 03/16/24 11:48 Dose: 4 unit Documented By: LASHELL Lisinopril (Lisinopril 10 Mg Tablet) 10 mg PO DAILY [facility]; Protocol Last Admin: 03/16/24 08:53 Dose: 10 mg Documented By: LASHELL Magnesium Hydroxide (Milk Of Magnesia 30 Ml Oral.Susp) 30 ml PO DAILY PRN PRN Reason: Constipation Melatonin (Melatonin 3 Mg Tablet) 6 mg PO BEDTIME PRN PRN Reason: Insomnia Last Admin: 03/12/24 01:54 Dose: 6 mg Documented By: JEFERSON Naloxone HCl (Naloxone Hcl 0.4 Mg/Ml Vial) 0.04 mg IVPUSH Q5M PRN PRN Reason: Excessive sedation or RR < 8 Nicotine (Nicotine 7 Mg Patch.Td24) 7 mg TRANSDERMA DAILY [facility] Last Admin: 03/16/24 07:51 Dose: 7 mg Documented By: LASHELL Nicotine Polacrilex (Nicotine Polacrilex 2 Mg Gum) 2 mg BUCCAL Q1H PRN PRN Reason: Nicotine Cravings Last Admin: 03/13/24 12:03 Dose: 2 mg Documented By: CHACORTA Ondansetron HCl (Ondansetron Hcl 4 Mg/2 Ml Vial) 4 mg IVPUSH Q8H PRN PRN Reason: Nausea and Vomiting Oxycodone HCl (Oxycodone Hcl Immed Release 5 Mg Tablet) 10 mg PO Q4H PRN PRN Reason: pain, moderate to severe Last Admin: 03/16/24 08:50 Dose: 10 mg Documented By: LASHELL Sodium Chloride (0.9 % Sodium Chloride Flush 3 Ml Syringe) 3 ml IVFLUSH QSHIFT [facility] Last Admin: 03/16/24 07:50 Dose: 3 ml Documented By: LASHELL Labs 03/16/24 07:20 03/16/24 07:20 Labs: Laboratory Results - last 24 hr 03/15/24 03/15/24 03/16/24 16:02 19:55 07:20 MCV 79.3 L MCH MCHC RDW Plt Count MPV Immature Gran % (Auto) Neut % (Auto) Lymph % (Auto) [place] % (Auto) Eos % (Auto) Baso % (Auto) Lymph # (Auto) [place] # (Auto) Eos # (Auto) Baso # (Auto) Abs Immat Gran (auto) Absolute Neuts (auto) Absolute Nucleated RBC Nucleated RBC % (auto) Neutrophils % (Manual) Band Neutrophils % Lymphocytes % (Manual) Atypical Lymphs % (Man) Monocytes % (Manual) Eosinophils % (Manual) Metamyelocytes % Abs Neuts (Manual) Lymphocytes # (Manual) Atyp Lymphs # (Manual) Monocytes # (Manual) Eosinophils # (Manual) Metamyelocytes # Toxic Granulation Platelet Estimate Large Platelets Plt Morphology Comment RBC Morphology Microcytosis Macrocytosis Target Cells Anion Gap Estim Creat Clear Calc Estimated GFR POC Glucose 244 H 291 H Fasting Glucose Calcium 03/16/24 03/16/24 03/16/24 07:20 07:20 07:20 MCV 79.5 L MCH 27.2 27.0 MCHC 34.2 34.0 RDW 14.0 Plt Count MPV Immature Gran % (Auto) Neut % (Auto) Lymph % (Auto) [place] % (Auto) Eos % (Auto) Baso % (Auto) Lymph # (Auto) [place] # (Auto) Eos # (Auto) Baso # (Auto) Abs Immat Gran (auto) Absolute Neuts (auto) Absolute Nucleated RBC Nucleated RBC % (auto) Neutrophils % (Manual) Band Neutrophils % Lymphocytes % (Manual) Atypical Lymphs % (Man) Monocytes % (Manual) Eosinophils % (Manual) Metamyelocytes % Abs Neuts (Manual) Lymphocytes # (Manual) Atyp Lymphs # (Manual) Monocytes # (Manual) Eosinophils # (Manual) Metamyelocytes # Toxic Granulation Platelet Estimate Large Platelets Plt Morphology Comment RBC Morphology Microcytosis Macrocytosis Target Cells Anion Gap Estim Creat Clear Calc Estimated GFR POC Glucose Fasting Glucose Calcium 03/16/24 03/16/24 03/16/24 07:20 07:20 07:20 MCV MCH MCHC RDW 14.0 Plt Count 422 H 422 H MPV 9.3 L 9.1 L Immature Gran % (Auto) Cancelled Neut % (Auto) Cancelled Lymph % (Auto) Cancelled [place] % (Auto) Cancelled Eos % (Auto) Cancelled Baso % (Auto) Cancelled Lymph # (Auto) Cancelled [place] # (Auto) Cancelled Eos # (Auto) Cancelled Baso # (Auto) Cancelled Abs Immat Gran (auto) Cancelled Absolute Neuts (auto) Cancelled Absolute Nucleated RBC 0.000 Nucleated RBC % (auto) Neutrophils % (Manual) Band Neutrophils % Lymphocytes % (Manual) Atypical Lymphs % (Man) Monocytes % (Manual) Eosinophils % (Manual) Metamyelocytes % Abs Neuts (Manual) Lymphocytes # (Manual) Atyp Lymphs # (Manual) Monocytes # (Manual) Eosinophils # (Manual) Metamyelocytes # Toxic Granulation Platelet Estimate Large Platelets Plt Morphology Comment RBC Morphology Microcytosis Macrocytosis Target Cells Anion Gap Estim Creat Clear Calc Estimated GFR POC Glucose Fasting Glucose Calcium 03/16/24 03/16/24 03/16/24 07:20 07:20 07:23 MCV MCH MCHC RDW Plt Count MPV Immature Gran % (Auto) Neut % (Auto) Lymph % (Auto) [place] % (Auto) Eos % (Auto) Baso % (Auto) Lymph # (Auto) [place] # (Auto) Eos # (Auto) Baso # (Auto) Abs Immat Gran (auto) Absolute Neuts (auto) Absolute Nucleated RBC 0.000 Nucleated RBC % (auto) 0.0 0.0 Neutrophils % (Manual) 74 H Band Neutrophils % 6 H Lymphocytes % (Manual) 10 L Atypical Lymphs % (Man) 2 Monocytes % (Manual) 6 Eosinophils % (Manual) 1 Metamyelocytes % 1 Abs Neuts (Manual) 20.6 H Lymphocytes # (Manual) 2.6 Atyp Lymphs # (Manual) 0.5 Monocytes # (Manual) 1.5 H Eosinophils # (Manual) 0.3 Metamyelocytes # 0.3 Toxic Granulation PRESENT Platelet Estimate NORMAL Large Platelets PRESENT Plt Morphology Comment NORMAL RBC Morphology NORMAL Microcytosis 1+ (5-14) Macrocytosis 1+ (5-14) Target Cells 1+ (5-14) Anion Gap 14 Estim Creat Clear Calc 70.9 Estimated GFR 59 POC Glucose 230 H Fasting Glucose 268 H Calcium 8.0 L D 03/16/24 11:00 MCV MCH MCHC RDW Plt Count MPV Immature Gran % (Auto) Neut % (Auto) Lymph % (Auto) [place] % (Auto) Eos % (Auto) Baso % (Auto) Lymph # (Auto) [place] # (Auto) Eos # (Auto) Baso # (Auto) Abs Immat Gran (auto) Absolute Neuts (auto) Absolute Nucleated RBC Nucleated RBC % (auto) Neutrophils % (Manual) Band Neutrophils % Lymphocytes % (Manual) Atypical Lymphs % (Man) Monocytes % (Manual) Eosinophils % (Manual) Metamyelocytes % Abs Neuts (Manual) Lymphocytes # (Manual) Atyp Lymphs # (Manual) Monocytes # (Manual) Eosinophils # (Manual) Metamyelocytes # Toxic Granulation Platelet Estimate Large Platelets Plt Morphology Comment RBC Morphology Microcytosis Macrocytosis Target Cells Anion Gap Estim Creat Clear Calc Estimated GFR POC Glucose 230 H Fasting Glucose Calcium Microbiology Microbiology Results: Microbiology 03/14/24 05:30 Blood Culture - Preliminary Blood - Venous No growth after 48 hours. 03/14/24 05:38 Blood Culture - Preliminary Blood - Venous No growth after 48 hours. Assessment and Plan (1) Foot osteomyelitis, right: Status: Acute Plan d6 for 59yo M with no PMHx presenting with redness and ulceration of R great toe over last 10d, found to be septic from osteomyelitis with GPC bacteremia, new dx DM2 severe sepsis due to diabetic osteomyelitis/foot infection with MSSA + GBS bacteremia - 03/11- vanco changed to dapto 03/13-03/14, 03/11-03/14 pip/theron; BCx grew MSSA + GBS so switched to cefazolin 03/14 - BCx from 03/[address] midline today. Plan total 4 wk of therapy with IV cefazolin, 03/14-04/11 per ID; will need ID f/u - TTE 03/14: - The left ventricular systolic function is normal. The calculated ejection fraction is 68% by biplane method. - The basal inferior segment is akinetic. - The basal inferolateral segment is hypokinetic. - There is mild calcification of the aortic valve. Cannot exclude vegetation. - s/p BKA 03/[address] Limon; postop care per Gen Surg DM2, new dx - A1c 11.7. Started basal-bolus insulin and will also start MTF today. DM teaching. Needs PCP as well. Upon discharge from rehab, needs MTF + glargine. HTN, new dx - Start lisinopril for renoprotective effect. Check BMP in 1 week. LAMAR - Prerenal; resolved after IV fluid hydration hypoNa - Resolving; continue IV NS 1 more day VTE prophylaxis - enoxaparin dispo - PT/OT evaluations: recommend AIR In my clinical judgment, the patient requires continued inpatient hospitalization for the following reasons: IV ABX, bacteremia, midline catheter, discharge planning Total time managing care of this patient today: 40 minutes. Quality Stroke Does the patient have a stroke diagnosis?: No VTE Prior VTE?: No VTE Risk Level:: Medical - moderate - high VTE Device Contraindication: Treatment Not Indicated VTE Drug Contraindication: N/A - Med Ordered
--- NOTE | 2024-03-16 15:26 | HO.MIDLINE ---
Midline Insertion MIDLINE INSERTION Diagnosis: Osteomyelitis right foot Indication: 4 weeks of Antibx Pertinent Labs: Reviewed Technique: Using sterile technique including cap and mask, glove and drape, the Left arm was prepped and draped in the usual sterile fashion of full barrier technique with CHG. Using ultrasound guidance, Left Brachial vein access was obtained on first attempt. [id number] Bard Powermidline Non-Pasv was positioned. The procedure was performed in Rm. 272. Ultrasound was used to document vein patency and for needle entry. A formal ultrasound picture was recorded. Vascular Polysomnography Technician has released the line for use and it is currently dressed with a StatLock, Tegaderm, and CHG disc. Verification has been performed for blood return and line patency. Arm Circumference: 34cm Equipment: Bard PowerMidline Catheter Catheter Type: [id number] Bard Powermidline Lot #: [id number]
[2024-03-16 15:52] VITALS: BP 186/90; PULSE 74; RESP 16; TEMP 36.6; O2SAT 97
[2024-03-16] MEDS: Heparin Sodium,Porcine Flush 50 UNITS, 0.9 % Sodium Chloride Flush 5 ML IVFLUSH (16:03)
[2024-03-16 16:16] LABS: Glucose, Whole Blood 242 mg/dL (60-115)
[2024-03-16] MEDS: metFORMIN HCl 500 MG TABLET PO (16:43)
--- NOTE | 2024-03-16 18:00 | P.CDIM_ITS ---
PROVIDER RESPONSE TEXT: To clarify, the appropriate diagnosis supported by the clinical indicators: Acute QUERY TEXT: PHYSICIAN'S DOCUMENTATION REQUEST Date of Query: 03/16/2024 10:23 AM EST Patient Name: Rubio Kim Admit Date: 03/12/2024 Dear Yessica Escobar MD, A review of the medical record indicates additional documentation may be needed. Please review below and update the documentation accordingly. Clinical Indicators: 03/15/24: diabetic osteomyelitis/foot infection with MSSA + GBS bacteremia Clarify which of the following accurately represents the acuity of the Osteomyelitis. Possible options might include: Acute Acute on chronic Compensated Chronic stable condition Remission Other (explain) Clinically unable to determine (explain) Thank you, Kell Starks RN Use of terms such as suspected, likely, concern for, or probable (associated with a specific diagnosi s that is being evaluated, monitored, or treated as if it exists) are acceptable and can be coded in the inpatient se tting, when documented at the time of discharge. Please use your independent medical judgment in providing your response. THIS QUERY IS PART OF THE PERMANENT MEDICAL RECORD
[2024-03-16 19:25] VITALS: BP 167/83; PULSE 83; RESP 16; TEMP 36.2; O2SAT 99
[2024-03-16 19:33] LABS: Glucose, Whole Blood 238 mg/dL (60-115)
[2024-03-16] MEDS: Insulin Glargine,Hum.rec.anlog 100 UNIT/ML 10 ML VIAL 20 UNIT SUBCUT (19:44)
[2024-03-16] MEDS: Enoxaparin Sodium 40 MG/0.4 ML SYRINGE SUBCUT (22:31)
[2024-03-16 23:22] VITALS: BP 164/75; PULSE 75; RESP 18; TEMP 36.6; O2SAT 97
[2024-03-17] MEDS: ceFAZolin Sodium/Dextrose,Iso 2 GM/50 ML PIGGYBACK IV ×3 (01:03→16:44)
[2024-03-17] MEDS: 0.9 % Sodium Chloride 1,000 ML 125 ML IVCONT ×3 (01:03→18:25)
[2024-03-17 01:14] LABS: Glucose, Whole Blood 132 mg/dL (60-115)
--- NOTE | 2024-03-17 05:43 | PC.NURSE ---
Pt was feeling sweaty around 1a, BBP=508. unable to sleep, offered melatonin but refused.
[2024-03-17 05:57] LABS: Hematocrit 28.3 % (42.0-52.0); Hemoglobin 9.8 g/dl (14.0-18.0); Mean Corpuscular HGB Conc 34.6 g/dl (31.0-36.0); Mean Corpuscular Hemoglobin 27.2 pg (27.0-33.0); Mean Corpuscular Volume 78.6 fL (80.0-98.0); Mean Platelet Volume 9.1 fL (9.4-12.4); Platelet Count 470 X10*3/uL (160-400); Red Cell Distribution Width 13.9 % (11.0-16.0); White Blood Count 29.4 X10*3/uL (4.8-10.8)
[2024-03-17 06:15] LABS: Anion Gap 13 (12-20); Blood Urea Nitrogen 12 mg/dL (9-16); Calcium 7.9 mg/dL (8.4-10.2); Carbon Dioxide 20 mmol/L (22-29); Chloride 103 mmol/L (96-108); Creatinine Clr Calc Pharmacy 77.7; Estimated Glomerular Filt Rate > 60; Glucose Random 131 mg/dL (60-115); Sodium 132 mmol/L (135-145)
[2024-03-17 07:39] LABS: Glucose, Whole Blood 131 mg/dL (60-115)
[2024-03-17] MEDS: Nicotine 7 MG PATCH.TD24 TRANSDERMA ×2 (08:21→11:57)
[2024-03-17 08:26] VITALS: BP 176/79; PULSE 81; RESP 18; TEMP 36.4; O2SAT 97
[2024-03-17] MEDS: lisinopriL 10 MG TABLET PO (08:57)
[2024-03-17] MEDS: metFORMIN HCl 500 MG TABLET PO ×2 (08:57→16:43)
[2024-03-17] MEDS: Heparin Sodium,Porcine Flush 50 UNITS, 0.9 % Sodium Chloride Flush 5 ML IVFLUSH ×2 (08:57→15:32)
[2024-03-17] MEDS: Acetaminophen 1,000 MG/100 ML PIGGYBACK 400 MG IV ×3 (09:01→21:04)
[2024-03-17] MEDS: 0.9 % Sodium Chloride Flush 3 ML SYRINGE IVFLUSH ×2 (09:03→15:33)
--- NOTE | 2024-03-17 09:55 | P.PNIM_ITS ---
Subjective Subjective Date of Service: 03/17/24 Interval History: Follow up Right BKA postop pain controlled no fever bacteremia resolved Review of Systems Review of Systems: Yes all other systems are reviewed and are negative Physical Exam 2 Vital Signs: Vital Signs: Last Vital Signs Temp 97.6 F 03/17/24 08:26 Pulse 81 03/17/24 08:26 Resp 18 03/17/24 08:26 BP 176/79 H 03/17/24 08:26 Pulse Ox 97 03/17/24 08:26 O2 Del Method Room Air 03/17/24 08:26 O2 Flow Rate 2 03/15/24 10:43 BMI result Body Mass Index 32.5 Appearing in no acute distress lung sounds are clear to auscultation heart regular rate rhythm, clear S1, S2 positive bowel sounds, abdomen is soft, nontender neuro patient is alert x3, no focal deficits Right BKA dsg intact Objective Data Active Medications Calcium Carbonate (Calcium Carbonate 750 Mg Tab.Chew) 750 mg PO Q4H PRN PRN Reason: Heartburn Heparin Sodium (Porcine) 50 (units/ Sodium Chloride 5 ml) 0 units IVFLUSH QSHIFT [facility] Last Admin: 03/17/24 08:57 Dose: 50 unit Documented By: KARINA Enoxaparin Sodium (Enoxaparin Sodium 40 Mg/0.4 Ml Syringe) 40 mg SUBCUT Q24H [facility] Last Admin: 03/16/24 22:31 Dose: 40 mg Documented By: MADAN Glucose (Glucose Gel 15 Gm Gel..Gram.) 15 gm PO Q15M PRN; Protocol PRN Reason: per Hypoglycemia Standing Ord. Hydromorphone HCl (Hydromorphone Hcl 0.5 Mg/0.5 Ml Syringe) 0.5 mg IVPUSH Q3H PRN; Protocol PRN Reason: Pain, Severe (Pain Scale 7-10) Last Admin: 03/16/24 15:58 Dose: 0.5 mg Documented By: LASHELL Dextrose (D10) 250 mls @ 750 mls/hr IV Q15M PRN; Protocol PRN Reason: per Hypoglycemia Standing Ord. Sodium Chloride (Ns) 1,000 mls @ 125 mls/hr IVCONT .Q8H [facility] Last Admin: 03/17/24 09:26 Dose: Not Given Documented By: KARINA Non-Admin Reason: IV Running Cefazolin Sodium/Dextrose (Ancef) 2 gm in 50 mls @ 100 mls/hr IV Q8H [facility] Last Admin: 03/17/24 08:59 Dose: 100 mls/hr Documented By: KARINA Acetaminophen (Ofirmev) 1,000 mg in 100 mls @ 400 mls/hr IV Q6H [facility] Last Infusion: 03/17/24 09:37 Dose: 400 mls/hr Documented By: KARINA Insulin Glargine (Insulin Glargine,Hum.Rec.Anlog 100 Unit/Ml 10 Ml Vial) 20 unit SUBCUT BEDTIME [facility] Last Admin: 03/16/24 19:44 Dose: 20 unit Documented By: MADAN Insulin Human Lispro (Insulin Lispro 100 Unit/Ml 3 Ml Vial) 0 unit SUBCUT QIDACHS [facility]; Protocol Last Admin: 03/17/24 08:21 Dose: Not Given Documented By: KARINA Non-Admin Reason: No Insulin Coverage Lisinopril (Lisinopril 10 Mg Tablet) 10 mg PO DAILY [facility]; Protocol Last Admin: 03/17/24 08:57 Dose: 10 mg Documented By: KARINA Magnesium Hydroxide (Milk Of Magnesia 30 Ml Oral.Susp) 30 ml PO DAILY PRN PRN Reason: Constipation Melatonin (Melatonin 3 Mg Tablet) 6 mg PO BEDTIME PRN PRN Reason: Insomnia Last Admin: 03/12/24 01:54 Dose: 6 mg Documented By: JEFERSON Metformin HCl (Metformin Hcl 500 Mg Tablet) 500 mg PO BIDWM [facility] Last Admin: 03/17/24 08:57 Dose: 500 mg Documented By: KARINA Naloxone HCl (Naloxone Hcl 0.4 Mg/Ml Vial) 0.04 mg IVPUSH Q5M PRN PRN Reason: Excessive sedation or RR < 8 Nicotine (Nicotine 7 Mg Patch.Td24) 7 mg TRANSDERMA DAILY [facility] Last Admin: 03/16/24 07:51 Dose: 7 mg Documented By: LASHELL Nicotine Polacrilex (Nicotine Polacrilex 2 Mg Gum) 2 mg BUCCAL Q1H PRN PRN Reason: Nicotine Cravings Last Admin: 03/13/24 12:03 Dose: 2 mg Documented By: CHACORTA Ondansetron HCl (Ondansetron Hcl 4 Mg/2 Ml Vial) 4 mg IVPUSH Q8H PRN PRN Reason: Nausea and Vomiting Oxycodone HCl (Oxycodone Hcl Immed Release 5 Mg Tablet) 10 mg PO Q4H PRN PRN Reason: pain, moderate to severe Last Admin: 03/16/24 08:50 Dose: 10 mg Documented By: LASHELL Sodium Chloride (0.9 % Sodium Chloride Flush 3 Ml Syringe) 3 ml IVFLUSH QSHIFT [facility] Last Admin: 03/17/24 09:03 Dose: 3 ml Documented By: KARINA Labs 03/17/24 05:08 03/17/24 05:08 Labs: Laboratory Results - last 24 hr 03/16/24 03/16/24 03/16/24 11:00 15:54 19:27 MCV MCH MCHC RDW Plt Count MPV Absolute Nucleated RBC Nucleated RBC % (auto) Anion Gap Estim Creat Clear Calc Estimated GFR POC Glucose 230 H 242 H 238 H Random Glucose Calcium 03/17/24 03/17/24 03/17/24 01:10 05:08 07:03 MCV 78.6 L MCH 27.2 MCHC 34.6 RDW 13.9 Plt Count 470 H MPV 9.1 L Absolute Nucleated RBC 0.000 Nucleated RBC % (auto) 0.0 Anion Gap 13 Estim Creat Clear Calc 77.7 Estimated GFR > 60 POC Glucose 132 H 131 H Random Glucose 131 H Calcium 7.9 L Microbiology Microbiology Results: Microbiology 03/14/24 05:30 Blood Culture - Preliminary Blood - Venous No growth after 48 hours. 03/14/24 05:38 Blood Culture - Preliminary Blood - Venous No growth after 48 hours. Assessment and Plan (1) Foot osteomyelitis, right: Status: Acute Plan 59yo M with no PMHx presenting with redness and ulceration of R great toe over last 10d, found to be septic from osteomyelitis with GPC bacteremia, new dx DM2 Severe sepsis due to diabetic osteomyelitis/foot infection with MSSA + GBS bacteremia TTE 03/14, ejection fraction is 68% by biplane method, cannot r/o vegetation vanco changed to dapto 03/13-03/14, 03/11-03/14 pip/theron; BCx grew MSSA + GBS so switched to cefazolin 03/14 BCx from 03/14 clear. Plan total 4 wk of therapy with IV cefazolin, 03/14-04/11 per ID; will need ID f/u s/p BKA 03/15 postop care per Gen Surg DM2, new dx A1c 11.7. Started basal-bolus insulin and metformin DM teaching. Needs PCP as well. Upon discharge from rehab, needs metformin+ glargine. HTN, new dx Start lisinopril for renoprotective effect. Check BMP in 1 week. LAMAR Prerenal resolved after IV fluid hydration HypoNa Resolving continue IV NS 1 more day VTE prophylaxis enoxaparin Attending Dr. Izabel bennett PT/OT evaluations: recommend AIR Total time managing care of this patient today: 40 minutes. Quality Stroke Does the patient have a stroke diagnosis?: No VTE Prior VTE?: No VTE Risk Level:: Medical - moderate - high VTE Device Contraindication: Treatment Not Indicated VTE Drug Contraindication: N/A - Med Ordered
[2024-03-17 11:28] LABS: Glucose, Whole Blood 176 mg/dL (60-115)
[2024-03-17] MEDS: Insulin Lispro 100 UNIT/ML 3 ML VIAL SUBCUT ×3 (11:34→21:04)
[2024-03-17 15:51] VITALS: BP 163/77; PULSE 79; RESP 18; TEMP 36.2; O2SAT 96
--- NOTE | 2024-03-17 16:18 | PC.NURSE ---
Pt encouraged to get out of bed into the chair multiple times this shift, pt refused. Education provided. Pt using incentive spirometer with good effort.
[2024-03-17 16:44] LABS: Glucose, Whole Blood 170 mg/dL (60-115)
--- NOTE | 2024-03-17 16:58 | PC.NURSE ---
Michelle Mejia made aware pts BP continues be elevated, last BP 163/77, Pt asymptomatic at this time. No new orders at this time.
[2024-03-17 19:59] LABS: Glucose, Whole Blood 215 mg/dL (60-115)
[2024-03-17] MEDS: Insulin Glargine,Hum.rec.anlog 100 UNIT/ML 10 ML VIAL 20 UNIT SUBCUT (21:04)
[2024-03-17 23:34] VITALS: BP 157/78; PULSE 78; RESP 20; TEMP 36.2; O2SAT 98
[2024-03-18] MEDS: Enoxaparin Sodium 40 MG/0.4 ML SYRINGE SUBCUT ×2 (00:07→22:09)
[2024-03-18] MEDS: Heparin Sodium,Porcine Flush 50 UNITS, 0.9 % Sodium Chloride Flush 5 ML IVFLUSH ×2 (00:07→16:33)
[2024-03-18] MEDS: 0.9 % Sodium Chloride Flush 3 ML SYRINGE IVFLUSH ×4 (00:09→22:11)
[2024-03-18] MEDS: ceFAZolin Sodium/Dextrose,Iso 2 GM/50 ML PIGGYBACK IV ×3 (00:23→16:32)
[2024-03-18] MEDS: 0.9 % Sodium Chloride 1,000 ML 125 ML IVCONT (02:37)
[2024-03-18] MEDS: Acetaminophen 1,000 MG/100 ML PIGGYBACK 400 MG IV ×2 (03:49→10:54)
[2024-03-18 07:19] LABS: Glucose, Whole Blood 103 mg/dL (60-115)
[2024-03-18 07:56] VITALS: BP 173/85; PULSE 74; RESP 18; TEMP 36.6; O2SAT 97
[2024-03-18] MEDS: metFORMIN HCl 500 MG TABLET PO ×2 (07:58→16:32)
[2024-03-18] MEDS: Nicotine 7 MG PATCH.TD24 TRANSDERMA (07:58)
[2024-03-18] MEDS: lisinopriL 10 MG TABLET PO ×2 (07:58→16:32)
[2024-03-18] MEDS: oxyCODONE HCl Immed Release 5 MG TABLET 10 MG PO ×3 (08:17→16:33)
--- NOTE | 2024-03-18 10:42 | P.PNIM_ITS ---
Subjective Subjective Date of Service: 03/18/24 Interval History: Follow up Right BKA postop pain controlled no fever bacteremia resolved Review of Systems Review of Systems: Yes all other systems are reviewed and are negative Physical Exam 2 Vital Signs: Vital Signs: Last Vital Signs Temp 97.8 F 03/18/24 07:56 Pulse 74 03/18/24 07:56 Resp 18 03/18/24 07:56 BP 173/85 H 03/18/24 07:56 Pulse Ox 97 03/18/24 07:56 O2 Del Method Room Air 03/18/24 07:56 O2 Flow Rate 2 03/15/24 10:43 BMI result Body Mass Index 32.5 Appearing in no acute distress lung sounds are clear to auscultation heart regular rate rhythm, clear S1, S2 positive bowel sounds, abdomen is soft, nontender neuro patient is alert x3, no focal deficits Left LE dsg intact Objective Data Active Medications Calcium Carbonate (Calcium Carbonate 750 Mg Tab.Chew) 750 mg PO Q4H PRN PRN Reason: Heartburn Heparin Sodium (Porcine) 50 (units/ Sodium Chloride 5 ml) 0 units IVFLUSH QSHIFT [facility] Last Admin: 03/18/24 08:09 Dose: Not Given Documented By: DELANO Non-Admin Reason: IV Running Enoxaparin Sodium (Enoxaparin Sodium 40 Mg/0.4 Ml Syringe) 40 mg SUBCUT Q24H [facility] Last Admin: 03/18/24 00:07 Dose: 40 mg Documented By: NUVIA Glucose (Glucose Gel 15 Gm Gel..Gram.) 15 gm PO Q15M PRN; Protocol PRN Reason: per Hypoglycemia Standing Ord. Hydromorphone HCl (Hydromorphone Hcl 0.5 Mg/0.5 Ml Syringe) 0.5 mg IVPUSH Q3H PRN; Protocol PRN Reason: Pain, Severe (Pain Scale 7-10) Last Admin: 03/16/24 15:58 Dose: 0.5 mg Documented By: LASHELL Dextrose (D10) 250 mls @ 750 mls/hr IV Q15M PRN; Protocol PRN Reason: per Hypoglycemia Standing Ord. Cefazolin Sodium/Dextrose (Ancef) 2 gm in 50 mls @ 100 mls/hr IV Q8H [facility] Last Infusion: 03/18/24 08:41 Dose: Infused Documented By: DELANO Acetaminophen (Ofirmev) 1,000 mg in 100 mls @ 400 mls/hr IV Q6H [facility] Last Infusion: 03/18/24 04:05 Dose: Infused Documented By: NUVIA Insulin Glargine (Insulin Glargine,Hum.Rec.Anlog 100 Unit/Ml 10 Ml Vial) 20 unit SUBCUT BEDTIME [facility] Last Admin: 03/17/24 21:04 Dose: 20 unit Documented By: NUVIA Insulin Human Lispro (Insulin Lispro 100 Unit/Ml 3 Ml Vial) 0 unit SUBCUT QIDACHS [facility]; Protocol Last Admin: 03/18/24 07:50 Dose: Not Given Documented By: DELANO Non-Admin Reason: No Insulin Coverage Lisinopril (Lisinopril 10 Mg Tablet) 10 mg PO DAILY [facility]; Protocol Last Admin: 03/18/24 07:58 Dose: 10 mg Documented By: DELANO Magnesium Hydroxide (Milk Of Magnesia 30 Ml Oral.Susp) 30 ml PO DAILY PRN PRN Reason: Constipation Melatonin (Melatonin 3 Mg Tablet) 6 mg PO BEDTIME PRN PRN Reason: Insomnia Last Admin: 03/12/24 01:54 Dose: 6 mg Documented By: JEFERSON Metformin HCl (Metformin Hcl 500 Mg Tablet) 500 mg PO BIDWM [facility] Last Admin: 03/18/24 07:58 Dose: 500 mg Documented By: DELANO Naloxone HCl (Naloxone Hcl 0.4 Mg/Ml Vial) 0.04 mg IVPUSH Q5M PRN PRN Reason: Excessive sedation or RR < 8 Nicotine (Nicotine 7 Mg Patch.Td24) 7 mg TRANSDERMA DAILY [facility] Last Admin: 03/18/24 07:58 Dose: 7 mg Documented By: DELANO Nicotine Polacrilex (Nicotine Polacrilex 2 Mg Gum) 2 mg BUCCAL Q1H PRN PRN Reason: Nicotine Cravings Last Admin: 03/13/24 12:03 Dose: 2 mg Documented By: CHACORTA Ondansetron HCl (Ondansetron Hcl 4 Mg/2 Ml Vial) 4 mg IVPUSH Q8H PRN PRN Reason: Nausea and Vomiting Oxycodone HCl (Oxycodone Hcl Immed Release 5 Mg Tablet) 10 mg PO Q4H PRN PRN Reason: pain, moderate to severe Last Admin: 03/18/24 08:17 Dose: 10 mg Documented By: DELANO Sodium Chloride (0.9 % Sodium Chloride Flush 3 Ml Syringe) [facility] Last Admin: 03/18/24 08:00 Dose: 3 ml Documented By: DELANO Labs 03/17/24 05:08 03/17/24 05:08 Labs: Laboratory Results - last 24 hr 03/17/24 03/17/24 03/17/24 11: 16:40 19:37 POC Glucose 176 H 170 H 215 H 03/18/24 07:10 POC Glucose 103 Assessment and Plan (1) Foot osteomyelitis, right: Status: Acute Plan 59yo M with no PMHx presenting with redness and ulceration of R great toe over last 10d, found to be septic from osteomyelitis with GPC bacteremia, new dx DM2 Severe sepsis due to diabetic osteomyelitis/foot infection with MSSA + GBS bacteremia TTE 03/14, ejection fraction is 68% by biplane method, cannot r/o vegetation 03/11- vanco changed to dapto 03/13-03/14, 03/11-03/14 pip/theron; BCx grew MSSA + GBS so switched to cefazolin 03/14 BCx from 03/14 clear. Plan total 4 wk of therapy with IV cefazolin, 03/14-04/11 per ID; will need ID f/u s/p BKA 03/15 postop care per Gen Surg DM2, new dx A1c 11.7. Started basal-bolus insulin and metformin DM teaching. Needs PCP as well. dc with metformin+ glargine. HTN, new dx Started lisinopril for renoprotective effect. LAMAR Prerenal resolved after IV fluid hydration HypoNa Resolving continue IV NS 1 more day VTE prophylaxis enoxaparin Attending Dr. Joel bennett PT/OT evaluations: recommend AIR, patient will be accepted on Thursday likely Total time managing care of this patient today: 40 minutes. Quality Stroke Does the patient have a stroke diagnosis?: No VTE Prior VTE?: No VTE Risk Level:: Medical - moderate - high VTE Device Contraindication: Treatment Not Indicated VTE Drug Contraindication: N/A - Med Ordered
[2024-03-18 11:15] LABS: Glucose, Whole Blood 153 mg/dL (60-115)
[2024-03-18] MEDS: Insulin Lispro 100 UNIT/ML 3 ML VIAL SUBCUT ×3 (11:22→22:08)
[2024-03-18 11:31] VITALS: BP 173/85; PULSE 74; O2SAT 97
--- NOTE | 2024-03-18 14:16 | MHC.CM.PN ---
EMR REVIEWED. PT WILL NEED INSURANCE AUTH BEFORE DC TO [facility] ([facility] IS FIRST CHOICE AND FOLLOWING) INSURANCE COMPANY IS CLOSED UNTIL ThursdayMAR 21. PT/MD AWARE.
[2024-03-18 15:42] VITALS: BP 170/80; PULSE 81; RESP 18; TEMP 36.9; O2SAT 99
[2024-03-18 16:15] LABS: Glucose, Whole Blood 191 mg/dL (60-115)
--- NOTE | 2024-03-18 17:50 | PC.NURSE ---
BP 173/58 @ 8am and 170/80 @ 3pm. Michelle Meza NP notified. Increased dose of lisinopril.
[2024-03-18 19:11] VITALS: BP 166/76; PULSE 85; RESP 14; TEMP 36.6; O2SAT 100
[2024-03-18 19:31] LABS: Glucose, Whole Blood 233 mg/dL (60-115)
[2024-03-18] MEDS: Insulin Glargine,Hum.rec.anlog 100 UNIT/ML 10 ML VIAL 20 UNIT SUBCUT (22:08)
[2024-03-18 23:29] VITALS: BP 168/72; PULSE 86; RESP 16; TEMP 36.7; O2SAT 98
[2024-03-19] MEDS: polyethylene glycoL 3350 17 GM POWD.PACK PO ×2 (00:08→21:20)
[2024-03-19] MEDS: Docusate Sodium 100 MG CAPSULE PO ×3 (00:08→21:20)
[2024-03-19] MEDS: oxyCODONE HCl Immed Release 5 MG TABLET 10 MG PO (00:08)
[2024-03-19] MEDS: ceFAZolin Sodium/Dextrose,Iso 2 GM/50 ML PIGGYBACK IV ×3 (00:10→16:19)
[2024-03-19] MEDS: Heparin Sodium,Porcine Flush 50 UNITS, 0.9 % Sodium Chloride Flush 5 ML IVFLUSH ×4 (00:45→21:44)
[2024-03-19 07:29] VITALS: BP 183/91; PULSE 81; RESP 16; TEMP 37.2; O2SAT 97
[2024-03-19 07:37] VITALS: BP 186/90
[2024-03-19 07:41] LABS: Glucose, Whole Blood 101 mg/dL (60-115)
[2024-03-19] MEDS: metFORMIN HCl 500 MG TABLET PO ×2 (08:07→16:29)
[2024-03-19] MEDS: Nicotine 7 MG PATCH.TD24 TRANSDERMA (08:10)
[2024-03-19 08:11] VITALS: BP 186/92
[2024-03-19] MEDS: lisinopriL 20 MG TABLET PO (08:11)
--- NOTE | 2024-03-19 08:27 | PC.NURSE ---
BP elevated 186/92 pulse 86 PA Yesenia Green notified,
[2024-03-19 08:31] LABS: Hematocrit 26.6 % (42.0-52.0); Mean Corpuscular HGB Conc 33.8 g/dl (31.0-36.0); Mean Corpuscular Hemoglobin 27.2 pg (27.0-33.0); Mean Corpuscular Volume 80.4 fL (80.0-98.0); Mean Platelet Volume 8.5 fL (9.4-12.4); Platelet Count 630 X10*3/uL (160-400); Red Blood Count 3.31 X10*6/uL (4.60-5.80); Red Cell Distribution Width 14.2 % (11.0-16.0); White Blood Count 24.9 X10*3/uL (4.8-10.8)
[2024-03-19 08:44] LABS: Anion Gap 10 (12-20); Blood Urea Nitrogen 13 mg/dL (9-16); Calcium 7.7 mg/dL (8.4-10.2); Carbon Dioxide 23 mmol/L (22-29); Chloride 103 mmol/L (96-108); Creatinine Clr Calc Pharmacy 81.3; Estimated Glomerular Filt Rate > 60; Glucose Random 115 mg/dL (60-115); Potassium 4.2 mmol/L (3.3-5.1); Sodium 132 mmol/L (135-145)
[2024-03-19 09:16] LABS: Atypical Lymph Absolute Manual 0.7 x10*3/uL; Atypical Lymphs Percent Manual 3 % (0-6); Band Neutrophils Percent 4 % (3-5); Eosinophils Absolute Manual 0.5 X10*3/uL (0.0-0.4); Eosinophils Percent Manual 2 % (0-4); Lymphocytes Absolute Manual 3.5 X10*3/uL (1.2-4.9); Lymphocytes Percent Manual 14 % (20-40); Metamyelocytes Absolute 0.2 X10*3/uL; Metamyelocytes Percent 1 %; Monocytes Percent Manual 4 % (2-11); Myelocytes Absolute 0.7 X10*/uL; Myelocytes Percent 3 %; Neutrophils Absolute Manual 18.2 X10*3/uL (2.0-8.3); Neutrophils Percent Manual 69 % (45-73); Nucleated Red Blood Cells 2 /100WBC (0-0)
[2024-03-19 09:22] LABS: RBC Morphology NOTED; Spherocytes 1+ (0-2) /OIF; Stomatocytes 1+ (5-14) /OIF; Target Cells 1+ (5-14) /OIF
[2024-03-19 09:23] LABS: Large Platelet PRESENT; Platelet Estimate INCREASED (NORMAL); Platelet Morphology Comment NOTED; Toxic Vacuolation PRESENT
--- NOTE | 2024-03-19 09:32 | PC.NURSE ---
CA 7.7, NA 132 PA Yesenia Green notified
[2024-03-19 11:03] LABS: Glucose, Whole Blood 155 mg/dL (60-115)
[2024-03-19] MEDS: Insulin Lispro 100 UNIT/ML 3 ML VIAL SUBCUT ×3 (11:47→21:20)
--- NOTE | 2024-03-19 13:39 | P.PNGS_ITS ---
Subjective Subjective Date of Service: 03/19/24 Interval history: Patient is feeling fine no issues with his right leg it is a little sore but he is able to move it and can flex and extend although his flexion is a little limited on the right knee. He has been wearing his immobilizer Physical Exam 2 Vital Signs: Vital Signs: Last Vital Signs Temp 98.9 F 03/19/24 07:29 Pulse 81 03/19/24 07:29 Resp 16 03/19/24 07:29 BP 186/92 H 03/19/24 08:11 Pulse Ox 97 03/19/24 07:29 O2 Del Method Room Air 03/19/24 07:29 O2 Flow Rate 2 03/15/24 10:43 BMI result Body Mass Index 32.5 Extrem: Other: amp site looks great - good flap and incision good Objective Data Active Medications Acetaminophen (Acetaminophen 325 Mg Tablet) 650 mg PO Q6H PRN PRN Reason: Pain, Mild (Pain Scale 1-3) Calcium Carbonate (Calcium Carbonate 750 Mg Tab.Chew) 750 mg PO Q4H PRN PRN Reason: Heartburn Heparin Sodium (Porcine) 50 (units/ Sodium Chloride 5 ml) 0 units IVFLUSH QSHIFT [facility] Last Admin: 03/19/24 08:09 Dose: 5 unit Documented By: LANE Docusate Sodium (Docusate Sodium 100 Mg Capsule) 100 mg PO BID [facility] Last Admin: 03/19/24 08:07 Dose: 100 mg Documented By: LANE Enoxaparin Sodium (Enoxaparin Sodium 40 Mg/0.4 Ml Syringe) 40 mg SUBCUT Q24H [facility] Last Admin: 03/18/24 22:09 Dose: 40 mg Documented By: TRAVIS Glucose (Glucose Gel 15 Gm Gel..Gram.) 15 gm PO Q15M PRN; Protocol PRN Reason: per Hypoglycemia Standing Ord. Hydromorphone HCl (Hydromorphone Hcl 0.5 Mg/0.5 Ml Syringe) 0.5 mg IVPUSH Q3H PRN; Protocol PRN Reason: Pain, Severe (Pain Scale 7-10) Last Admin: 03/16/24 15:58 Dose: 0.5 mg Documented By: LASHELL Dextrose (D10) 250 mls @ 750 mls/hr IV Q15M PRN; Protocol PRN Reason: per Hypoglycemia Standing Ord. Cefazolin Sodium/Dextrose (Ancef) 2 gm in 50 mls @ 100 mls/hr IV Q8H [facility] Last Infusion: 03/19/24 09:03 Dose: Infused Documented By: LANE Insulin Glargine (Insulin Glargine,Hum.Rec.Anlog 100 Unit/Ml 10 Ml Vial) 20 unit SUBCUT BEDTIME [facility] Last Admin: 03/18/24 22:08 Dose: 20 unit Documented By: TRAVIS Insulin Human Lispro (Insulin Lispro 100 Unit/Ml 3 Ml Vial) 0 unit SUBCUT QIDACHS [facility]; Protocol Last Admin: 03/19/24 11:47 Dose: 2 unit Documented By: LANE Lisinopril (Lisinopril 20 Mg Tablet) 20 mg PO DAILY [facility]; Protocol Last Admin: 03/19/24 08:11 Dose: 20 mg Documented By: LANE Magnesium Hydroxide (Milk Of Magnesia 30 Ml Oral.Susp) 30 ml PO DAILY PRN PRN Reason: Constipation Melatonin (Melatonin 3 Mg Tablet) 6 mg PO BEDTIME PRN PRN Reason: Insomnia Last Admin: 03/12/24 01:54 Dose: 6 mg Documented By: JEFERSON Metformin HCl (Metformin Hcl 500 Mg Tablet) 500 mg PO BIDWM [facility] Last Admin: 03/19/24 08:07 Dose: 500 mg Documented By: LANE Naloxone HCl (Naloxone Hcl 0.4 Mg/Ml Vial) 0.04 mg IVPUSH Q5M PRN PRN Reason: Excessive sedation or RR < 8 Nicotine (Nicotine 7 Mg Patch.Td24) 7 mg TRANSDERMA DAILY [facility] Last Admin: 03/19/24 08:10 Dose: 7 mg Documented By: LANE Nicotine Polacrilex (Nicotine Polacrilex 2 Mg Gum) 2 mg BUCCAL Q1H PRN PRN Reason: Nicotine Cravings Last Admin: 03/13/24 12:03 Dose: 2 mg Documented By: CHACORTA Ondansetron HCl (Ondansetron Hcl 4 Mg/2 Ml Vial) 4 mg IVPUSH Q8H PRN PRN Reason: Nausea and Vomiting Oxycodone HCl (Oxycodone Hcl Immed Release 5 Mg Tablet) 10 mg PO Q4H PRN PRN Reason: pain, moderate to severe Last Admin: 03/19/24 00:08 Dose: 10 mg Documented By: TRAVIS Polyethylene Glycol (Polyethylene Glycol 3350 17 Gm Powd.Pack) 17 gm PO DAILY PRN PRN Reason: Constipation Last Admin: 03/19/24 00:08 Dose: 17 gm Documented By: TRAVIS Sodium Chloride (0.9 % Sodium Chloride Flush 3 Ml Syringe) 3 ml IVFLUSH QSHIFT [facility] Last Admin: 03/19/24 08:10 Dose: Not Given Documented By: LANE Non-Admin Reason: pt has midline Labs 03/19/24 08:14 03/19/24 08:14 Labs: Laboratory Results - last 24 hr 03/18/24 03/18/24 03/19/24 16:10 19:26 07:32 MCV MCH MCHC RDW Plt Count MPV Immature Gran % (Auto) Neut % (Auto) Lymph % (Auto) Guthrie % (Auto) Eos % (Auto) Baso % (Auto) Lymph # (Auto) Guthrie # (Auto) Eos # (Auto) Baso # (Auto) Abs Immat Gran (auto) Absolute Neuts (auto) Absolute Nucleated RBC Nucleated RBC % (auto) Neutrophils % (Manual) Band Neutrophils % Lymphocytes % (Manual) Atypical Lymphs % (Man) Monocytes % (Manual) Eosinophils % (Manual) Metamyelocytes % Myelocytes % Abs Neuts (Manual) Lymphocytes # (Manual) Atyp Lymphs # (Manual) Monocytes # (Manual) Eosinophils # (Manual) Metamyelocytes # Myelocytes # Nucleated RBCs Toxic Vacuolation Platelet Estimate Large Platelets Plt Morphology Comment RBC Morphology Spherocytes Target Cells Stomatocytes Anion Gap Estim Creat Clear Calc Estimated GFR POC Glucose 191 H 233 H 101 Random Glucose Calcium 03/19/24 03/19/24 08:14 10:58 MCV 80.4 MCH 27.2 MCHC 33.8 RDW 14.2 Plt Count 630 H D MPV 8.5 L Immature Gran % (Auto) Cancelled Neut % (Auto) Cancelled Lymph % (Auto) Cancelled Guthrie % (Auto) Cancelled Eos % (Auto) Cancelled Baso % (Auto) Cancelled Lymph # (Auto) Cancelled Guthrie # (Auto) Cancelled Eos # (Auto) Cancelled Baso # (Auto) Cancelled Abs Immat Gran (auto) Cancelled Absolute Neuts (auto) Cancelled Absolute Nucleated RBC 0.000 Nucleated RBC % (auto) 0.0 Neutrophils % (Manual) 69 Band Neutrophils % 4 Lymphocytes % (Manual) 14 L Atypical Lymphs % (Man) 3 Monocytes % (Manual) 4 Eosinophils % (Manual) 2 Metamyelocytes % 1 Myelocytes % 3 Abs Neuts (Manual) 18.2 H Lymphocytes # (Manual) 3.5 Atyp Lymphs # (Manual) 0.7 Monocytes # (Manual) 1.0 Eosinophils # (Manual) 0.5 H Metamyelocytes # 0.2 Myelocytes # 0.7 Nucleated RBCs 2 H Toxic Vacuolation PRESENT Platelet Estimate INCREASED Large Platelets PRESENT Plt Morphology Comment NOTED RBC Morphology NOTED Spherocytes 1+ (0-2) Target Cells 1+ (5-14) Stomatocytes 1+ (5-14) Anion Gap 10 L Estim Creat Clear Calc 81.3 Estimated GFR > 60 POC Glucose 155 H Random Glucose 115 Calcium 7.7 L Microbiology Microbiology Results: Microbiology 03/14/24 05:38 Blood Culture - Final Blood - Venous No growth after 5 days. 03/14/24 05:30 Blood Culture - Final Blood - Venous No growth after 5 days. Procedures Date of Service Date of Service: 03/19/24 Progress Note: A&P Assessment and plan (1) Status post below knee amputation of right lower extremity: Status: Acute Assessment and Plan: pt s/p right bka - doing well- wearing immobilizer. He will go to rehab on thursday Time Spent With Patient Time: Total time managing care of this patient today ____ minutes. Quality Stroke Does the patient have a stroke diagnosis?: No VTE Prior VTE?: No VTE Risk Level:: Medical - moderate - high VTE Device Contraindication: Treatment Not Indicated VTE Drug Contraindication: N/A - Med Ordered
--- NOTE | 2024-03-19 14:21 | PC.NURSE ---
Patient reports no BM since 03/11,Colace was administered,Miralax was administered AMAN Patterson notified,patient passing flatus,denies discomfort
[2024-03-19] MEDS: bisacodyL 10 MG SUPP.RECT PR (14:39)
--- NOTE | 2024-03-19 14:44 | PC.NURSE ---
Patient refused to get out of bed
[2024-03-19 15:04] VITALS: BP 189/90; PULSE 87; RESP 18; TEMP 37.1; O2SAT 97
--- NOTE | 2024-03-19 15:42 | P.PNIM_ITS ---
Subjective Subjective Date of Service: 03/19/24 Interval History: seen and examined this morning follow up for new DM, BKA having some pain at amputation site reports constipation Review of Systems Review of Systems: Yes all other systems are reviewed and are negative Constitutional Constitutional: Denies chills and Denies fever(s) Cardiovascular Cardiovascular: Denies chest pain, Denies palpitations and Denies dyspnea Respiratory Respiratory: Denies cough and Denies dyspnea Gastrointestinal Gastrointestinal: Denies abdominal pain, Reports constipation, Denies diarrhea, Denies nausea and Denies vomiting Endocrine Endocrine: Denies palpitations Physical Exam 2 Vital Signs: Vital Signs: Last Vital Signs Temp 98.7 F 03/19/24 15:04 Pulse 87 03/19/24 15:04 Resp 18 03/19/24 15:04 BP 189/90 H 03/19/24 15:04 Pulse Ox 97 03/19/24 15:04 O2 Del Method Room Air 03/19/24 15:04 O2 Flow Rate 2 03/15/24 10:43 BMI result Body Mass Index 32.5 Const: General: cooperative, comfortable, alert and awake Nutritional Appearance: average body habitus Orientation/consciousness: patient oriented x3 Resp: Effort & Inspection: normal respiratory effort, able to speak in complete sentences, no respiratory distress and no use of accessory muscles Cardio: Rate: regular rate GI: Inspection: No distended Palpation (GI): Soft to palpation and nontender Neuro: General: patient oriented x3, moves all extremities and CN's II-XI intact bilaterally Extrem: Other: s/p right BKA - wrapped c/d/i dressing; immobilizer in place midline LUE Objective Data Active Medications Acetaminophen (Acetaminophen 325 Mg Tablet) 650 mg PO Q6H PRN PRN Reason: Pain, Mild (Pain Scale 1-3) Amlodipine Besylate (Amlodipine Besylate 5 Mg Tablet) 5 mg PO DAILY [facility]; Protocol Calcium Carbonate (Calcium Carbonate 750 Mg Tab.Chew) 750 mg PO Q4H PRN PRN Reason: Heartburn Heparin Sodium (Porcine) 50 (units/ Sodium Chloride 5 ml) 0 units IVFLUSH QSHIFT [facility] Last Admin: 03/19/24 08:09 Dose: 5 unit Documented By: LANE Docusate Sodium (Docusate Sodium 100 Mg Capsule) 100 mg PO BID [facility] Last Admin: 03/19/24 08:07 Dose: 100 mg Documented By: LANE Enoxaparin Sodium (Enoxaparin Sodium 40 Mg/0.4 Ml Syringe) 40 mg SUBCUT Q24H [facility] Last Admin: 03/18/24 22:09 Dose: 40 mg Documented By: TRAVIS Glucose (Glucose Gel 15 Gm Gel..Gram.) 15 gm PO Q15M PRN; Protocol PRN Reason: per Hypoglycemia Standing Ord. Hydromorphone HCl (Hydromorphone Hcl 0.5 Mg/0.5 Ml Syringe) 0.5 mg IVPUSH Q4H PRN; Protocol PRN Reason: Pain, Severe (Pain Scale 7-10) Dextrose (D10) 250 mls @ 750 mls/hr IV Q15M PRN; Protocol PRN Reason: per Hypoglycemia Standing Ord. Cefazolin Sodium/Dextrose (Ancef) 2 gm in 50 mls @ 100 mls/hr IV Q8H [facility] Last Infusion: 03/19/24 09:03 Dose: Infused Documented By: LANE Insulin Glargine (Insulin Glargine,Hum.Rec.Anlog 100 Unit/Ml 10 Ml Vial) 20 unit SUBCUT BEDTIME [facility] Last Admin: 03/18/24 22:08 Dose: 20 unit Documented By: TRAVIS Insulin Human Lispro (Insulin Lispro 100 Unit/Ml 3 Ml Vial) 0 unit SUBCUT QIDACHS [facility]; Protocol Last Admin: 03/19/24 11:47 Dose: 2 unit Documented By: LANE Lisinopril (Lisinopril 20 Mg Tablet) 20 mg PO DAILY [facility]; Protocol Last Admin: 03/19/24 08:11 Dose: 20 mg Documented By: LANE Magnesium Hydroxide (Milk Of Magnesia 30 Ml Oral.Susp) 30 ml PO DAILY PRN PRN Reason: Constipation Melatonin (Melatonin 3 Mg Tablet) 6 mg PO BEDTIME PRN PRN Reason: Insomnia Last Admin: 03/12/24 01:54 Dose: 6 mg Documented By: JEFERSON Metformin HCl (Metformin Hcl 500 Mg Tablet) 500 mg PO BIDWM [facility] Last Admin: 03/19/24 08:07 Dose: 500 mg Documented By: LANE Naloxone HCl (Naloxone Hcl 0.4 Mg/Ml Vial) 0.04 mg IVPUSH Q5M PRN PRN Reason: Excessive sedation or RR < 8 Nicotine (Nicotine 7 Mg Patch.Td24) 7 mg TRANSDERMA DAILY [facility] Last Admin: 03/19/24 08:10 Dose: 7 mg Documented By: LANE Nicotine Polacrilex (Nicotine Polacrilex 2 Mg Gum) 2 mg BUCCAL Q1H PRN PRN Reason: Nicotine Cravings Last Admin: 03/13/24 12:03 Dose: 2 mg Documented By: CHACORTA Ondansetron HCl (Ondansetron Hcl 4 Mg/2 Ml Vial) 4 mg IVPUSH Q8H PRN PRN Reason: Nausea and Vomiting Oxycodone HCl (Oxycodone Hcl Immed Release 5 Mg Tablet) 10 mg PO Q4H PRN PRN Reason: pain, moderate to severe Last Admin: 03/19/24 00:08 Dose: 10 mg Documented By: TRAVIS Polyethylene Glycol (Polyethylene Glycol 3350 17 Gm Powd.Pack) 17 gm PO BID JERI Sodium Chloride (0.9 % Sodium Chloride Flush 3 Ml Syringe) 3 ml IVFLUSH QSHIFT [facility] Last Admin: 03/19/24 08:10 Dose: Not Given Documented By: LANE Non-Admin Reason: pt has midline Labs 03/19/24 08:14 03/19/24 08:14 Labs: Laboratory Results - last 24 hr 03/18/24 03/18/24 03/19/24 16:10 19:26 07:32 MCV MCH MCHC RDW Plt Count MPV Immature Gran % (Auto) Neut % (Auto) Lymph % (Auto) Holt % (Auto) Eos % (Auto) Baso % (Auto) Lymph # (Auto) Holt # (Auto) Eos # (Auto) Baso # (Auto) Abs Immat Gran (auto) Absolute Neuts (auto) Absolute Nucleated RBC Nucleated RBC % (auto) Neutrophils % (Manual) Band Neutrophils % Lymphocytes % (Manual) Atypical Lymphs % (Man) Monocytes % (Manual) Eosinophils % (Manual) Metamyelocytes % Myelocytes % Abs Neuts (Manual) Lymphocytes # (Manual) Atyp Lymphs # (Manual) Monocytes # (Manual) Eosinophils # (Manual) Metamyelocytes # Myelocytes # Nucleated RBCs Toxic Vacuolation Platelet Estimate Large Platelets Plt Morphology Comment RBC Morphology Spherocytes Target Cells Stomatocytes Anion Gap Estim Creat Clear Calc Estimated GFR POC Glucose 191 H 233 H 101 Random Glucose Calcium 03/19/24 03/19/24 08:14 10:58 MCV 80.4 MCH 27.2 MCHC 33.8 RDW 14.2 Plt Count 630 H D MPV 8.5 L Immature Gran % (Auto) Cancelled Neut % (Auto) Cancelled Lymph % (Auto) Cancelled Holt % (Auto) Cancelled Eos % (Auto) Cancelled Baso % (Auto) Cancelled Lymph # (Auto) Cancelled Holt # (Auto) Cancelled Eos # (Auto) Cancelled Baso # (Auto) Cancelled Abs Immat Gran (auto) Cancelled Absolute Neuts (auto) Cancelled Absolute Nucleated RBC 0.000 Nucleated RBC % (auto) 0.0 Neutrophils % (Manual) 69 Band Neutrophils % 4 Lymphocytes % (Manual) 14 L Atypical Lymphs % (Man) 3 Monocytes % (Manual) 4 Eosinophils % (Manual) 2 Metamyelocytes % 1 Myelocytes % 3 Abs Neuts (Manual) 18.2 H Lymphocytes # (Manual) 3.5 Atyp Lymphs # (Manual) 0.7 Monocytes # (Manual) 1.0 Eosinophils # (Manual) 0.5 H Metamyelocytes # 0.2 Myelocytes # 0.7 Nucleated RBCs 2 H Toxic Vacuolation PRESENT Platelet Estimate INCREASED Large Platelets PRESENT Plt Morphology Comment NOTED RBC Morphology NOTED Spherocytes 1+ (0-2) Target Cells 1+ (5-14) Stomatocytes 1+ (5-14) Anion Gap 10 L Estim Creat Clear Calc 81.3 Estimated GFR > 60 POC Glucose 155 H Random Glucose 115 Calcium 7.7 L Microbiology Microbiology Results: Microbiology 03/14/24 05:38 Blood Culture - Final Blood - Venous No growth after 5 days. 03/14/24 05:30 Blood Culture - Final Blood - Venous No growth after 5 days. Assessment and Plan (1) Foot osteomyelitis, right: Status: Acute (2) Status post below knee amputation of right lower extremity: Status: Acute Plan This is a 59yo M with no PMHx presenting with redness and ulceration of R great toe over last 10d, found to be septic from osteomyelitis with GPC bacteremia, new dx DM2 eventually requiring right BKA Severe sepsis due to diabetic osteomyelitis/foot infection with MSSA + GBS bacteremia TTE 03/14, ejection fraction is 68% by biplane method, cannot r/o vegetation 03/11- vanco changed to dapto 03/13-03/14, 03/11-03/14 pip/theron; BCx grew MSSA + GBS so switched to cefazolin 03/14 BCx from 03/14 clear. midline placed 03/16 Plan total 4 wk of therapy with IV cefazolin, 03/14-04/11 per ID; will need ID f/u s/p BKA 03/15 postop care per Gen Surg DM2, new dx A1c 11.7. Started basal-bolus insulin and metformin DM teaching. Needs PCP as well. dc with metformin+ glargine. HTN, new dx Started lisinopril, bp still elevated start norvasc LAMAR Prerenal resolved after IV fluid hydration HypoNa Resolving normocytic anemia likely multifactorial due to acute illness, recent surgery, chronic inflammation no overt bleeding noted probable reactive thrombocytocysis follow CBC constipation scheduled bowel regimen VTE prophylaxis enoxaparin dispo PT/OT evaluations: recommend AIR, patient will be accepted on Thursday likely Quality Stroke Does the patient have a stroke diagnosis?: No VTE Prior VTE?: No VTE Risk Level:: Medical - moderate - high VTE Device Contraindication: Treatment Not Indicated VTE Drug Contraindication: N/A - Med Ordered
[2024-03-19 16:11] LABS: Glucose, Whole Blood 164 mg/dL (60-115)
[2024-03-19 16:12] VITALS: BP 187/91
[2024-03-19] MEDS: amLODIPine Besylate 5 MG TABLET PO (16:12)
--- NOTE | 2024-03-19 16:22 | PC.NURSE ---
Dulcolax was administered,patient had a BM on a commode,hemorrhoids came out,scant amt of blood on a wipe,patient denies pain, AMAN Patterson notified
[2024-03-19 20:04] LABS: Glucose, Whole Blood 222 mg/dL (60-115)
[2024-03-19] MEDS: Insulin Glargine,Hum.rec.anlog 100 UNIT/ML 10 ML VIAL 20 UNIT SUBCUT (21:20)
[2024-03-19] MEDS: Enoxaparin Sodium 40 MG/0.4 ML SYRINGE SUBCUT (21:20)
[2024-03-19 23:27] VITALS: BP 168/83; PULSE 91; RESP 14; TEMP 36.6; O2SAT 96
[2024-03-20] MEDS: ceFAZolin Sodium/Dextrose,Iso 2 GM/50 ML PIGGYBACK IV ×3 (01:26→16:54)
[2024-03-20] MEDS: 0.9 % Sodium Chloride Flush 3 ML SYRINGE IVFLUSH (01:27)
[2024-03-20] MEDS: oxyCODONE HCl Immed Release 5 MG TABLET 10 MG PO ×2 (06:13→18:41)
[2024-03-20 07:10] VITALS: BP 175/85; PULSE 87; RESP 18; TEMP 37.2; O2SAT 94
[2024-03-20 07:26] LABS: Glucose, Whole Blood 109 mg/dL (60-115)
[2024-03-20] MEDS: Docusate Sodium 100 MG CAPSULE PO ×2 (08:07→21:42)
[2024-03-20] MEDS: lisinopriL 20 MG TABLET PO (08:07)
[2024-03-20] MEDS: amLODIPine Besylate 5 MG TABLET PO (08:07)
[2024-03-20] MEDS: metFORMIN HCl 500 MG TABLET PO ×2 (08:07→16:54)
[2024-03-20] MEDS: Heparin Sodium,Porcine Flush 50 UNITS, 0.9 % Sodium Chloride Flush 5 ML IVFLUSH ×2 (08:08→16:53)
[2024-03-20] MEDS: Nicotine 7 MG PATCH.TD24 TRANSDERMA (08:10)
[2024-03-20] MEDS: polyethylene glycoL 3350 17 GM POWD.PACK PO ×2 (08:12→21:43)
--- NOTE | 2024-03-20 09:43 | PC.NURSE ---
BP elevated 175/85 pulse 87,bp meds administered this am as ordered,AMAN Patterson aware
[2024-03-20 11:13] LABS: Glucose, Whole Blood 141 mg/dL (60-115)
--- NOTE | 2024-03-20 13:27 | P.PNIM_ITS ---
Subjective Subjective Date of Service: 03/20/24 Interval History: seen and examined this morning follow up for DM, foot infection s/p amputation no overnight events had BM and overall feeling better Review of Systems Review of Systems: Yes all other systems are reviewed and are negative Constitutional Constitutional: Denies chills and Denies fever(s) Physical Exam 2 Vital Signs: Vital Signs: Last Vital Signs Temp 99.0 F 03/20/24 07:10 Pulse 87 03/20/24 07:10 Resp 18 03/20/24 07:10 BP 175/85 H 03/20/24 07:10 Pulse Ox 94 03/20/24 07:10 O2 Del Method Room Air 03/20/24 07:10 O2 Flow Rate 2 03/15/24 10:43 BMI result Body Mass Index 32.5 Const: General: cooperative, comfortable, alert and awake Nutritional Appearance: average body habitus Orientation/consciousness: patient oriented x3 Resp: Effort & Inspection: normal respiratory effort, able to speak in complete sentences, no respiratory distress and no use of accessory muscles Cardio: Rate: regular rate GI: Inspection: No distended Palpation (GI): Soft to palpation and nontender Neuro: General: patient oriented x3, moves all extremities and CN's II-XI intact bilaterally Extrem: Other: s/p right BKA - wrapped c/d/i dressing; immobilizer in place midline LUE Objective Data Active Medications Acetaminophen (Acetaminophen 325 Mg Tablet) 650 mg PO Q6H PRN PRN Reason: Pain, Mild (Pain Scale 1-3) Amlodipine Besylate (Amlodipine Besylate 5 Mg Tablet) 5 mg PO DAILY [facility]; Protocol Last Admin: 03/20/24 08:07 Dose: 5 mg Documented By: LANE Calcium Carbonate (Calcium Carbonate 750 Mg Tab.Chew) 750 mg PO Q4H PRN PRN Reason: Heartburn Heparin Sodium (Porcine) 50 (units/ Sodium Chloride 5 ml) 0 units IVFLUSH QSHIFT [facility] Last Admin: 03/20/24 08:08 Dose: 50 unit Documented By: LANE Docusate Sodium (Docusate Sodium 100 Mg Capsule) 100 mg PO BID [facility] Last Admin: 03/20/24 08:07 Dose: 100 mg Documented By: LANE Enoxaparin Sodium (Enoxaparin Sodium 40 Mg/0.4 Ml Syringe) 40 mg SUBCUT Q24H [facility] Last Admin: 03/19/24 21:20 Dose: 40 mg Documented By: RIGOBERTO Glucose (Glucose Gel 15 Gm Gel..Gram.) 15 gm PO Q15M PRN; Protocol PRN Reason: per Hypoglycemia Standing Ord. Dextrose (D10) 250 mls @ 750 mls/hr IV Q15M PRN; Protocol PRN Reason: per Hypoglycemia Standing Ord. Cefazolin Sodium/Dextrose (Ancef) 2 gm in 50 mls @ 100 mls/hr IV Q8H [facility] Last Infusion: 03/20/24 08:44 Dose: Infused Documented By: LANE Insulin Glargine (Insulin Glargine,Hum.Rec.Anlog 100 Unit/Ml 10 Ml Vial) 20 unit SUBCUT BEDTIME [facility] Last Admin: 03/19/24 21:20 Dose: 20 unit Documented By: RIGOBERTO Insulin Human Lispro (Insulin Lispro 100 Unit/Ml 3 Ml Vial) 0 unit SUBCUT QIDACHS [facility]; Protocol Last Admin: 03/20/24 11:31 Dose: Not Given Documented By: LANE Non-Admin Reason: No Insulin Coverage Lisinopril (Lisinopril 20 Mg Tablet) 20 mg PO DAILY [facility]; Protocol Last Admin: 03/20/24 08:07 Dose: 20 mg Documented By: LANE Magnesium Hydroxide (Milk Of Magnesia 30 Ml Oral.Susp) 30 ml PO DAILY PRN PRN Reason: Constipation Melatonin (Melatonin 3 Mg Tablet) 6 mg PO BEDTIME PRN PRN Reason: Insomnia Last Admin: 03/12/24 01:54 Dose: 6 mg Documented By: JEFERSON Metformin HCl (Metformin Hcl 500 Mg Tablet) 500 mg PO BIDWM [facility] Last Admin: 03/20/24 08:07 Dose: 500 mg Documented By: LANE Naloxone HCl (Naloxone Hcl 0.4 Mg/Ml Vial) 0.04 mg IVPUSH Q5M PRN PRN Reason: Excessive sedation or RR < 8 Nicotine (Nicotine 7 Mg Patch.Td24) 7 mg TRANSDERMA DAILY [facility] Last Admin: 03/20/24 08:10 Dose: 7 mg Documented By: LANE Nicotine Polacrilex (Nicotine Polacrilex 2 Mg Gum) 2 mg BUCCAL Q1H PRN PRN Reason: Nicotine Cravings Last Admin: 03/13/24 12:03 Dose: 2 mg Documented By: CHACORTA Ondansetron HCl (Ondansetron Hcl 4 Mg/2 Ml Vial) 4 mg IVPUSH Q8H PRN PRN Reason: Nausea and Vomiting Oxycodone HCl (Oxycodone Hcl Immed Release 5 Mg Tablet) 10 mg PO Q4H PRN PRN Reason: pain, moderate to severe Last Admin: 03/20/24 06:13 Dose: 10 mg Documented By: RIGOBERTO Polyethylene Glycol (Polyethylene Glycol 3350 17 Gm Powd.Pack) 17 gm PO BID [facility] Last Admin: 03/20/24 08:12 Dose: 17 gm Documented By: LANE Sodium Chloride (0.9 % Sodium Chloride Flush 3 Ml Syringe) 3 ml IVFLUSH QSHIFT [facility] Last Admin: 03/20/24 08:09 Dose: Not Given Documented By: LANE Non-Admin Reason: pt has midline Labs 03/19/24 08:14 03/19/24 08:14 Labs: Laboratory Results - last 24 hr 03/19/24 03/19/24 03/20/24 16:07 19:43 07:13 POC Glucose 164 H 222 H 109 03/20/24 11:06 POC Glucose 141 H Assessment and Plan (1) Status post below knee amputation of right lower extremity: Status: Acute (2) Sepsis: Status: Acute (3) Foot osteomyelitis, right: Status: Acute Plan This is a 59yo M with no PMHx presenting with redness and ulceration of R great toe over last 10d, found to be septic from osteomyelitis with GPC bacteremia, new dx DM2 eventually requiring right BKA Severe sepsis due to diabetic osteomyelitis/foot infection with MSSA + GBS bacteremia TTE 03/14, ejection fraction is 68% by biplane method, cannot r/o vegetation vanco changed to dapto 03/13-03/14, 03/11-03/14 pip/theron; BCx grew MSSA + GBS so switched to cefazolin 03/14 BCx from 03/14 clear. midline placed 03/16 Plan total 4 wk of therapy with IV cefazolin, 03/14-04/11 per ID; will need ID f/u s/p BKA 11/26 postop care per Gen Surg DM2, new dx A1c 11.7. Started basal-bolus insulin and metformin DM teaching. Needs PCP as well. dc with metformin+ glargine. HTN, new dx continue lisinopril, norvasc, can titrate norvasc if needed LAMAR Prerenal resolved after IV fluid hydration HypoNa Resolving normocytic anemia likely multifactorial due to acute illness, recent surgery, chronic inflammation no overt bleeding noted probable reactive thrombocytocysis follow CBC constipation scheduled bowel regimen VTE prophylaxis enoxaparin dispo PT/OT evaluations: recommend AIR, patient will be accepted on Thursday likely Quality Stroke Does the patient have a stroke diagnosis?: No VTE Prior VTE?: No VTE Risk Level:: Medical - moderate - high VTE Device Contraindication: Treatment Not Indicated VTE Drug Contraindication: N/A - Med Ordered
[2024-03-20] MEDS: Acetaminophen 325 MG TABLET 650 MG PO (14:12)
[2024-03-20 15:18] VITALS: BP 187/96; PULSE 86; RESP 18; TEMP 37.2; O2SAT 98
[2024-03-20 16:23] LABS: Glucose, Whole Blood 153 mg/dL (60-115)
[2024-03-20 16:52] VITALS: BP 164/79; PULSE 85
[2024-03-20] MEDS: Insulin Lispro 100 UNIT/ML 3 ML VIAL SUBCUT ×2 (16:53→21:46)
[2024-03-20 19:49] LABS: Glucose, Whole Blood 166 mg/dL (60-115)
[2024-03-20] MEDS: Insulin Glargine,Hum.rec.anlog 100 UNIT/ML 10 ML VIAL 20 UNIT SUBCUT (21:46)
[2024-03-20] MEDS: Enoxaparin Sodium 40 MG/0.4 ML SYRINGE SUBCUT (21:54)
[2024-03-20 23:41] VITALS: BP 138/68; PULSE 84; RESP 18; TEMP 36.3; O2SAT 95
[2024-03-21] MEDS: oxyCODONE HCl Immed Release 5 MG TABLET 10 MG PO ×5 (00:50→22:04)
[2024-03-21] MEDS: Heparin Sodium,Porcine Flush 50 UNITS, 0.9 % Sodium Chloride Flush 5 ML IVFLUSH ×3 (00:51→17:25)
[2024-03-21] MEDS: ceFAZolin Sodium/Dextrose,Iso 2 GM/50 ML PIGGYBACK IV ×3 (01:00→16:50)
[2024-03-21 06:43] LABS: Hematocrit 24.1 % (42.0-52.0); Hemoglobin 8.2 g/dl (14.0-18.0); Mean Corpuscular Hemoglobin 27.7 pg (27.0-33.0); Mean Corpuscular Volume 81.4 fL (80.0-98.0); Mean Platelet Volume 8.7 fL (9.4-12.4); Platelet Count 745 X10*3/uL (160-400); Red Blood Count 2.96 X10*6/uL (4.60-5.80); Red Cell Distribution Width 14.6 % (11.0-16.0); White Blood Count 19.4 X10*3/uL (4.8-10.8)
[2024-03-21 07:29] LABS: Glucose, Whole Blood 88 mg/dL (60-115)
[2024-03-21 07:33] VITALS: BP 168/82; PULSE 77; RESP 18; TEMP 36.5; O2SAT 97
[2024-03-21] MEDS: Docusate Sodium 100 MG CAPSULE PO ×2 (08:39→20:06)
[2024-03-21] MEDS: metFORMIN HCl 500 MG TABLET PO ×2 (08:39→16:50)
[2024-03-21] MEDS: Nicotine 7 MG PATCH.TD24 TRANSDERMA (08:39)
[2024-03-21] MEDS: amLODIPine Besylate 5 MG TABLET PO (08:39)
[2024-03-21] MEDS: lisinopriL 20 MG TABLET PO (08:39)
[2024-03-21] MEDS: polyethylene glycoL 3350 17 GM POWD.PACK PO ×2 (08:40→20:06)
--- NOTE | 2024-03-21 09:15 | P.PNGS_ITS ---
Subjective Subjective Date of Service: 03/21/24 Interval history: Amp site pain improving, comfortable with oral analgesics. Physical Exam 2 Vital Signs: Vital Signs: Last Vital Signs Temp 97.7 F 03/21/24 07:33 Pulse 77 03/21/24 07:33 Resp 18 03/21/24 07:33 BP 168/82 H 03/21/24 07:33 Pulse Ox 97 03/21/24 07:33 O2 Del Method Room Air 03/21/24 07:33 O2 Flow Rate 2 03/15/24 10:43 BMI result Body Mass Index 32.5 Const: General: comfortable, no acute distress and alert O rientation/consciousness: patient oriented x3 Resp: Effort & Inspection: normal respiratory effort Skin: General skin exam: no rashes or lesions noted Neuro: General: patient oriented x3 and moves all extremities Extrem: Other: right BKA site clean and dry, steris intact, minimal edema, no erythema Objective Data Active Medications Acetaminophen (Acetaminophen 325 Mg Tablet) 650 mg PO Q6H PRN PRN Reason: Pain, Mild (Pain Scale 1-3) Last Admin: 03/20/24 14:12 Dose: 650 mg Documented By: LANE Amlodipine Besylate (Amlodipine Besylate 5 Mg Tablet) 5 mg PO DAILY [facility]; Protocol Last Admin: 03/21/24 08:39 Dose: 5 mg Documented By: JOANIE Calcium Carbonate (Calcium Carbonate 750 Mg Tab.Chew) 750 mg PO Q4H PRN PRN Reason: Heartburn Heparin Sodium (Porcine) 50 (units/ Sodium Chloride 5 ml) 0 units IVFLUSH QSHIFT [facility] Last Admin: 03/21/24 08:42 Dose: 50 unit Documented By: JOANIE Docusate Sodium (Docusate Sodium 100 Mg Capsule) 100 mg PO BID [facility] Last Admin: 03/21/24 08:39 Dose: 100 mg Documented By: JOANIE Enoxaparin Sodium (Enoxaparin Sodium 40 Mg/0.4 Ml Syringe) 40 mg SUBCUT Q24H [facility] Last Admin: 03/20/24 21:54 Dose: 40 mg Documented By: GEMA Glucose (Glucose Gel 15 Gm Gel..Gram.) 15 gm PO Q15M PRN; Protocol PRN Reason: per Hypoglycemia Standing Ord. Dextrose (D10) 250 mls @ 750 mls/hr IV Q15M PRN; Protocol PRN Reason: per Hypoglycemia Standing Ord. Cefazolin Sodium/Dextrose (Ancef) 2 gm in 50 mls @ 100 mls/hr IV Q8H [facility] Last Infusion: 03/21/24 09:11 Dose: Infused Documented By: JOANIE Insulin Glargine (Insulin Glargine,Hum.Rec.Anlog 100 Unit/Ml 10 Ml Vial) 20 unit SUBCUT BEDTIME [facility] Last Admin: 03/20/24 21:46 Dose: 20 unit Documented By: GEMA Insulin Human Lispro (Insulin Lispro 100 Unit/Ml 3 Ml Vial) 0 unit SUBCUT QIDACHS [facility]; Protocol Last Admin: 03/21/24 08:07 Dose: Not Given Documented By: JOANIE Non-Admin Reason: No Insulin Coverage Lisinopril (Lisinopril 20 Mg Tablet) 20 mg PO DAILY [facility]; Protocol Last Admin: 03/21/24 08:39 Dose: 20 mg Documented By: JOANIE Magnesium Hydroxide (Milk Of Magnesia 30 Ml Oral.Susp) 30 ml PO DAILY PRN PRN Reason: Constipation Melatonin (Melatonin 3 Mg Tablet) 6 mg PO BEDTIME PRN PRN Reason: Insomnia Last Admin: 03/12/24 01:54 Dose: 6 mg Documented By: JEFERSON Metformin HCl (Metformin Hcl 500 Mg Tablet) 500 mg PO BIDWM [facility] Last Admin: 03/21/24 08:39 Dose: 500 mg Documented By: JOANIE Naloxone HCl (Naloxone Hcl 0.4 Mg/Ml Vial) 0.04 mg IVPUSH Q5M PRN PRN Reason: Excessive sedation or RR < 8 Nicotine (Nicotine 7 Mg Patch.Td24) 7 mg TRANSDERMA DAILY [facility] Last Admin: 03/21/24 08:39 Dose: 7 mg Documented By: JOANIE Nicotine Polacrilex (Nicotine Polacrilex 2 Mg Gum) 2 mg BUCCAL Q1H PRN PRN Reason: Nicotine Cravings Last Admin: 03/13/24 12:03 Dose: 2 mg Documented By: CHACORTA Ondansetron HCl (Ondansetron Hcl 4 Mg/2 Ml Vial) 4 mg IVPUSH Q8H PRN PRN Reason: Nausea and Vomiting Oxycodone HCl (Oxycodone Hcl Immed Release 5 Mg Tablet) 10 mg PO Q4H PRN PRN Reason: pain, moderate to severe Last Admin: 03/21/24 08:39 Dose: 10 mg Documented By: JOANIE Polyethylene Glycol (Polyethylene Glycol 3350 17 Gm Powd.Pack) 17 gm PO BID [facility] Last Admin: 03/21/24 08:40 Dose: 17 gm Documented By: JOANIE Sodium Chloride (0.9 % Sodium Chloride Flush 3 Ml Syringe) 3 ml IVFLUSH QSHIFT [facility] Last Admin: 03/21/24 08:42 Dose: Not Given Documented By: JOANIE Non-Admin Reason: Previously Administered Labs 03/21/24 05:35 03/19/24 08:14 Labs: Laboratory Results - last 24 hr 03/20/24 03/20/24 03/20/24 11:06 16:15 19:39 MCV MCH MCHC RDW Plt Count MPV Absolute Nucleated RBC Nucleated RBC % (auto) POC Glucose 141 H 153 H 166 H 03/21/24 03/21/24 05:35 07:24 MCV 81.4 MCH 27.7 MCHC 34.0 RDW 14.6 Plt Count 745 H MPV 8.7 L Absolute Nucleated RBC 0.000 Nucleated RBC % (auto) 0.0 POC Glucose 88 Procedures Date of Service Date of Service: 03/21/24 Progress Note: A&P Assessment and plan (1) Status post below knee amputation of right lower extremity: Status: Acute (2) Foot osteomyelitis, right: Status: Acute Plan Doing well s/p right BKA. Amp site remains clean and healing well. MInimal residual edema. Cont daily dressing changes with fluffs, kerlix and tara wrap. Cont knee immobilizer. Surgically stable for dc with f/u in 1 week in office. Time Spent With Patient Time: Total time managing care of this patient today ____ minutes. Quality Stroke Does the patient have a stroke diagnosis?: No VTE Prior VTE?: No VTE Risk Level:: Medical - moderate - high VTE Device Contraindication: Treatment Not Indicated VTE Drug Contraindication: N/A - Med Ordered
[2024-03-21 11:22] LABS: Glucose, Whole Blood 133 mg/dL (60-115)
--- NOTE | 2024-03-21 12:52 | MHC.CM.PN ---
darren goldie pt ready for dc licha is requiring a new pt and ot eval which have beed requested
--- NOTE | 2024-03-21 13:04 | HO.PM.IMPN ---
Subjective Subjective Date of Service: 03/21/24 Interval History: seen and examined this morning follow up for DM, foot infection s/p amputation no overnight events had BM and overall feeling better Review of Systems Review of Systems: Yes all other systems are reviewed and are negative Constitutional Constitutional: Denies chills and Denies fever(s) Physical Exam Vital Signs: Vital Signs: Last Vital Signs Temp 97.7 F 03/21/24 07:33 Pulse 77 03/21/24 07:33 Resp 18 03/21/24 07:33 BP 168/82 H 03/21/24 07:33 Pulse Ox 97 03/21/24 07:33 O2 Del Method Room Air 03/21/24 07:33 O2 Flow Rate 2 03/15/24 10:43 BMI result Body Mass Index 32.5 Appearing in no acute distress lung sounds are clear to auscultation heart regular rate rhythm, clear S1, S2 positive bowel sounds, abdomen is soft, nontender neuro patient is alert x3, no focal deficits Right BKA Objective Data Active Medications Acetaminophen (Acetaminophen 325 Mg Tablet) 650 mg PO Q6H PRN PRN Reason: Pain, Mild (Pain Scale 1-3) Last Admin: 03/20/24 14:12 Dose: 650 mg Documented By: LANE Amlodipine Besylate (Amlodipine Besylate 5 Mg Tablet) 5 mg PO DAILY [facility]; Protocol Last Admin: 03/21/24 08:39 Dose: 5 mg Documented By: JOANIE Calcium Carbonate (Calcium Carbonate 750 Mg Tab.Chew) 750 mg PO Q4H PRN PRN Reason: Heartburn Heparin Sodium (Porcine) 50 (units/ Sodium Chloride 5 ml) 0 units IVFLUSH QSHIFT [facility] Last Admin: 03/21/24 08:42 Dose: 50 unit Documented By: JOANIE Docusate Sodium (Docusate Sodium 100 Mg Capsule) 100 mg PO BID [facility] Last Admin: 03/21/24 08:39 Dose: 100 mg Documented By: JOANIE Enoxaparin Sodium (Enoxaparin Sodium 40 Mg/0.4 Ml Syringe) 40 mg SUBCUT Q24H [facility] Last Admin: 03/20/24 21:54 Dose: 40 mg Documented By: GEMA Glucose (Glucose Gel 15 Gm Gel..Gram.) 15 gm PO Q15M PRN; Protocol PRN Reason: per Hypoglycemia Standing Ord. Dextrose (D10) 250 mls @ 750 mls/hr IV Q15M PRN; Protocol PRN Reason: per Hypoglycemia Standing Ord. Cefazolin Sodium/Dextrose (Ancef) 2 gm in 50 mls @ 100 mls/hr IV Q8H [facility] Last Infusion: 03/21/24 09:11 Dose: Infused Documented By: JOANIE Insulin Glargine (Insulin Glargine,Hum.Rec.Anlog 100 Unit/Ml 10 Ml Vial) 20 unit SUBCUT BEDTIME [facility] Last Admin: 03/20/24 21:46 Dose: 20 unit Documented By: GEMA Insulin Human Lispro (Insulin Lispro 100 Unit/Ml 3 Ml Vial) 0 unit SUBCUT QIDACHS [facility]; Protocol Last Admin: 03/21/24 11:35 Dose: Not Given Documented By: JOANIE Non-Admin Reason: No Insulin Coverage Lisinopril (Lisinopril 20 Mg Tablet) 20 mg PO DAILY [facility]; Protocol Last Admin: 03/21/24 08:39 Dose: 20 mg Documented By: JOANIE Magnesium Hydroxide (Milk Of Magnesia 30 Ml Oral.Susp) 30 ml PO DAILY PRN PRN Reason: Constipation Melatonin (Melatonin 3 Mg Tablet) 6 mg PO BEDTIME PRN PRN Reason: Insomnia Last Admin: 03/12/24 01:54 Dose: 6 mg Documented By: JEFERSON Metformin HCl (Metformin Hcl 500 Mg Tablet) 500 mg PO BIDWM [facility] Last Admin: 03/21/24 08:39 Dose: 500 mg Documented By: JOANIE Naloxone HCl (Naloxone Hcl 0.4 Mg/Ml Vial) 0.04 mg IVPUSH Q5M PRN PRN Reason: Excessive sedation or RR < 8 Nicotine (Nicotine 7 Mg Patch.Td24) 7 mg TRANSDERMA DAILY [facility] Last Admin: 03/21/24 08:39 Dose: 7 mg Documented By: JOANIE Nicotine Polacrilex (Nicotine Polacrilex 2 Mg Gum) 2 mg BUCCAL Q1H PRN PRN Reason: Nicotine Cravings Last Admin: 03/13/24 12:03 Dose: 2 mg Documented By: CHACORTA Ondansetron HCl (Ondansetron Hcl 4 Mg/2 Ml Vial) 4 mg IVPUSH Q8H PRN PRN Reason: Nausea and Vomiting Oxycodone HCl (Oxycodone Hcl Immed Release 5 Mg Tablet) 10 mg PO Q4H PRN PRN Reason: pain, moderate to severe Last Admin: 03/21/24 08:39 Dose: 10 mg Documented By: JOANIE Polyethylene Glycol (Polyethylene Glycol 3350 17 Gm Powd.Pack) 17 gm PO BID [facility] Last Admin: 03/21/24 08:40 Dose: 17 gm Documented By: JOANIE Sodium Chloride (0.9 % Sodium Chloride Flush 3 Ml Syringe) 3 ml IVFLUSH QSHIFT [facility] Last Admin: 03/21/24 08:42 Dose: Not Given Documented By: JOANIE Non-Admin Reason: Previously Administered Labs 03/21/24 05:35 03/19/24 08:14 Labs: Laboratory Results - last 24 hr 03/20/24 03/20/24 03/21/24 16:15 19:39 05:35 MCV 81.4 MCH 27.7 MCHC 34.0 RDW 14.6 Plt Count 745 H MPV 8.7 L Absolute Nucleated RBC 0.000 Nucleated RBC % (auto) 0.0 POC Glucose 153 H 166 H 03/21/24 03/21/24 07:24 11:13 MCV MCH MCHC RDW Plt Count MPV Absolute Nucleated RBC Nucleated RBC % (auto) POC Glucose 88 133 H Assessment and Plan (1) Status post below knee amputation of right lower extremity: Status: Acute (2) Sepsis: Status: Acute (3) Foot osteomyelitis, right: Status: Acute Plan This is a 59yo M with no PMHx presenting with redness and ulceration of R great toe over last 10d, found to be septic from osteomyelitis with GPC bacteremia, new dx DM2 eventually requiring right BKA Severe sepsis due to diabetic osteomyelitis/foot infection with MSSA + GBS bacteremia TTE 03/14, ejection fraction is 68% by biplane method, cannot r/o vegetation 03/11- vanco changed to dapto 03/13-03/14, 03/11-03/14 pip/theron; BCx grew MSSA + GBS so switched to cefazolin 03/14 BCx from 03/14 clear. midline placed 03/16 Plan total 4 wk of therapy with IV cefazolin, 03/14-04/11 per ID; will need ID f/u s/p BKA 03/15 postop care per Gen Surg DM2, new dx A1c 11.7. Started basal-bolus insulin and metformin DM teaching. Needs PCP as well. dc with metformin+ glargine. HTN, new dx continue lisinopril, norvasc, can titrate norvasc if needed LAMAR Prerenal resolved after IV fluid hydration HypoNa Resolving normocytic anemia likely multifactorial due to acute illness, recent surgery, chronic inflammation no overt bleeding noted probable reactive thrombocytocysis follow CBC constipation scheduled bowel regimen VTE prophylaxis enoxaparin Attending Dr. Maldonado dispo PT/OT evaluations: recommend AIR, waiting for bed placement Quality Stroke Does the patient have a stroke diagnosis?: No VTE Prior VTE?: No VTE Risk Level:: Medical - moderate - high VTE Device Contraindication: Treatment Not Indicated VTE Drug Contraindication: N/A - Med Ordered
[2024-03-21 14:03] VITALS: BP 168/82; PULSE 77; O2SAT 97
[2024-03-21 14:56] VITALS: BP 168/82; PULSE 88; RESP 20; TEMP 36.8; O2SAT 98
[2024-03-21 16:21] LABS: Glucose, Whole Blood 196 mg/dL (60-115)
[2024-03-21] MEDS: Insulin Lispro 100 UNIT/ML 3 ML VIAL SUBCUT ×2 (16:51→20:06)
[2024-03-21 19:51] LABS: Glucose, Whole Blood 182 mg/dL (60-115)
[2024-03-21] MEDS: Insulin Glargine,Hum.rec.anlog 100 UNIT/ML 10 ML VIAL 20 UNIT SUBCUT (20:05)
[2024-03-21] MEDS: Enoxaparin Sodium 40 MG/0.4 ML SYRINGE SUBCUT (22:05)
[2024-03-22] VITALS: BP 160/84; PULSE 85; RESP 18; TEMP 37; O2SAT 96
[2024-03-22] MEDS: ceFAZolin Sodium/Dextrose,Iso 2 GM/50 ML PIGGYBACK IV ×2 (00:07→09:08)
[2024-03-22] MEDS: 0.9 % Sodium Chloride Flush 3 ML SYRINGE IVFLUSH ×2 (00:13→09:20)
[2024-03-22] MEDS: Heparin Sodium,Porcine Flush 50 UNITS, 0.9 % Sodium Chloride Flush 5 ML IVFLUSH ×2 (00:41→15:50)
[2024-03-22 07:21] VITALS: BP 141/74; PULSE 83; RESP 16; TEMP 36.3; O2SAT 95
[2024-03-22 07:45] LABS: Glucose, Whole Blood 72 mg/dL (60-115)
--- NOTE | 2024-03-22 08:42 | HO.PM.IMPN ---
Subjective Subjective Date of Service: 03/22/24 Physical Exam Vital Signs: Vital Signs: Last Vital Signs Temp 97.3 F 03/22/24 07:21 Pulse 83 03/22/24 07:21 Resp 16 03/22/24 07:21 BP 141/74 H 03/22/24 07:21 Pulse Ox 95 03/22/24 07:21 O2 Del Method Room Air 03/22/24 07:21 O2 Flow Rate 2 03/15/24 10:43 BMI result Body Mass Index 32.5 Objective Data Active Medications Acetaminophen (Acetaminophen 325 Mg Tablet) 650 mg PO Q6H PRN PRN Reason: Pain, Mild (Pain Scale 1-3) Last Admin: 03/20/24 14:12 Dose: 650 mg Documented By: LANE Amlodipine Besylate (Amlodipine Besylate 5 Mg Tablet) 5 mg PO DAILY [facility]; Protocol Last Admin: 03/21/24 08:39 Dose: 5 mg Documented By: JOANIE Calcium Carbonate (Calcium Carbonate 750 Mg Tab.Chew) 750 mg PO Q4H PRN PRN Reason: Heartburn Heparin Sodium (Porcine) 50 (units/ Sodium Chloride 5 ml) 0 units IVFLUSH QSHIFT [facility] Last Admin: 03/22/24 00:41 Dose: 50 unit Documented By: JUAN Docusate Sodium (Docusate Sodium 100 Mg Capsule) 100 mg PO BID [facility] Last Admin: 03/21/24 20:06 Dose: 100 mg Documented By: JUAN Enoxaparin Sodium (Enoxaparin Sodium 40 Mg/0.4 Ml Syringe) 40 mg SUBCUT Q24H [facility] Last Admin: 03/21/24 22:05 Dose: 40 mg Documented By: JUAN Glucose (Glucose Gel 15 Gm Gel..Gram.) 15 gm PO Q15M PRN; Protocol PRN Reason: per Hypoglycemia Standing Ord. Dextrose (D10) 250 mls @ 750 mls/hr IV Q15M PRN; Protocol PRN Reason: per Hypoglycemia Standing Ord. Cefazolin Sodium/Dextrose (Ancef) 2 gm in 50 mls @ 100 mls/hr IV Q8H [facility] Last Infusion: 03/22/24 00:45 Dose: Infused Documented By: JUAN Insulin Glargine (Insulin Glargine,Hum.Rec.Anlog 100 Unit/Ml 10 Ml Vial) 20 unit SUBCUT BEDTIME [facility] Last Admin: 03/21/24 20:05 Dose: 20 unit Documented By: JUAN Insulin Human Lispro (Insulin Lispro 100 Unit/Ml 3 Ml Vial) 0 unit SUBCUT QIDACHS [facility]; Protocol Last Admin: 03/22/24 07:53 Dose: Not Given Documented By: ELVIS Non-Admin Reason: No Insulin Coverage Lisinopril (Lisinopril 20 Mg Tablet) 20 mg PO DAILY [facility]; Protocol Last Admin: 03/21/24 08:39 Dose: 20 mg Documented By: JOANIE Magnesium Hydroxide (Milk Of Magnesia 30 Ml Oral.Susp) 30 ml PO DAILY PRN PRN Reason: Constipation Melatonin (Melatonin 3 Mg Tablet) 6 mg PO BEDTIME PRN PRN Reason: Insomnia Last Admin: 03/12/24 01:54 Dose: 6 mg Documented By: JEFERSON Metformin HCl (Metformin Hcl 500 Mg Tablet) 500 mg PO BIDWM [facility] Last Admin: 03/21/24 16:50 Dose: 500 mg Documented By: HEATH Naloxone HCl (Naloxone Hcl 0.4 Mg/Ml Vial) 0.04 mg IVPUSH Q5M PRN PRN Reason: Excessive sedation or RR < 8 Nicotine (Nicotine 7 Mg Patch.Td24) 7 mg TRANSDERMA DAILY [facility] Last Admin: 03/21/24 08:39 Dose: 7 mg Documented By: JOANIE Nicotine Polacrilex (Nicotine Polacrilex 2 Mg Gum) 2 mg BUCCAL Q1H PRN PRN Reason: Nicotine Cravings Last Admin: 03/13/24 12:03 Dose: 2 mg Documented By: CHACORTA Ondansetron HCl (Ondansetron Hcl 4 Mg/2 Ml Vial) 4 mg IVPUSH Q8H PRN PRN Reason: Nausea and Vomiting Oxycodone HCl (Oxycodone Hcl Immed Release 5 Mg Tablet) 10 mg PO Q4H PRN PRN Reason: pain, moderate to severe Last Admin: 03/21/24 22:04 Dose: 10 mg Documented By: JUAN Polyethylene Glycol (Polyethylene Glycol 3350 17 Gm Powd.Pack) 17 gm PO BID [facility] Last Admin: 03/21/24 20:06 Dose: 17 gm Documented By: HO.MARTYA Sodium Chloride (0.9 % Sodium Chloride Flush 3 Ml Syringe) 3 ml IVFLUSH QSHIFT [facility] Last Admin: 03/22/24 00:13 Dose: 3 ml Documented By: JUAN Labs 03/21/24 05:35 03/19/24 08:14 Labs: Laboratory Results - last 24 hr 03/21/24 03/21/24 03/21/24 11:13 16:14 19:42 POC Glucose 133 H 196 H 182 H 03/22/24 07:25 POC Glucose 72 Quality Stroke Does the patient have a stroke diagnosis?: No VTE Prior VTE?: No VTE Risk Level:: Medical - moderate - high VTE Device Contraindication: Treatment Not Indicated VTE Drug Contraindication: N/A - Med Ordered
[2024-03-22] MEDS: polyethylene glycoL 3350 17 GM POWD.PACK PO (08:58)
[2024-03-22] MEDS: Docusate Sodium 100 MG CAPSULE PO (09:00)
[2024-03-22] MEDS: metFORMIN HCl 500 MG TABLET PO ×2 (09:00→18:37)
[2024-03-22] MEDS: lisinopriL 20 MG TABLET PO (09:00)
[2024-03-22] MEDS: amLODIPine Besylate 5 MG TABLET PO (09:00)
[2024-03-22] MEDS: Acetaminophen 325 MG TABLET 650 MG PO (09:01)
[2024-03-22] MEDS: Nicotine 7 MG PATCH.TD24 TRANSDERMA (09:08)
[2024-03-22 11:37] LABS: Glucose, Whole Blood 126 mg/dL (60-115)
--- NOTE | 2024-03-22 11:49 | P.DS_ITS ---
DS: Providers Provider Date of Service: 03/22/24 Date of admission: 03/11/24 22:47 Primary care physician: None Physician Consults: 03/11/24 22:52 Consult to General Surgery Routine Consulting Provider: [facility] [facility] Reason for consultation: right foot infection 03/11/24 22:53 Consult to Infectious Diseases Routine Consulting Provider: [facility] [place] [facility] Reason for consultation: right foot osteomyelitis 03/12/24 02:51 Consult to Wound Care Routine Reason for consultation: right foot ulcer 03/12/24 13:21 Consult to Vascular Surgery Routine Consulting Provider: [facility] [place] [facility] Reason for consultation: dm foot DS: Diagnosis Discharge Diagnosis (1) Status post below knee amputation of right lower extremity: Status: Acute (2) Sepsis: Status: Acute (3) Foot osteomyelitis, right: Status: Acute DS: Summary Hospital Course Hospital Course: History and physical as per admitting provider. This is a 59-year-old male with no pertinent past medical history and not on prescription medications who presents to the emergency department for evaluation of right foot infection. P atient states he does not take any prescription medications and has not seen a doctor in many years. He 1st noticed redness and blister over his right foot and great toe about 10 days ago. Subsequently noticed that the redness was worsening and the right foot had multiple blisters which burst. Eventually there was purulent drainage from the right foot along with warmth and erythema. States he has pain with ambulation. No fever, chills, chest pain, palpitations, nausea, vomiting, abdominal pain, shortness of breath, changes in urinary or bowel habits. In the emergency department, x-ray concerning for osteomyelitis. Blood glucose found to be elevated Severe sepsis due to diabetic osteomyelitis/foot infection with MSSA + GBS bacteremia, TTE 03/14, ejection fraction is 68% by biplane method 03/11- vanco changed to dapto 03/13-03/14, 03/11-03/14 pip/theron; BCx grew MSSA + GBS so switched to cefazolin 03/14, BCx from 03/14 clear. midline placed 03/16 Plan total 4 wk of therapy with IV cefazolin, 03/14-04/11. s/p BKA 03/15 DM2, new dx A1c 11.7. Started basal-bolus insulin and metformin, DM teaching. Needs PCP. dc with metformin+ glargine. HTN, new dx continue lisinopril, norvasc, can titrate norvasc if needed LAMAR Prerenal resolved after IV fluid hydration HypoNa Resolved normocytic anemia likely multifactorial due to acute illness, recent surgery, chronic inflammation, no overt bleeding noted probable reactive thrombocytocysis constipation scheduled bowel regimen Time Attestation Discharge Coordination Time (in mins): 40 Quality: Safe Use of Opioids Does Pt have an Active Cancer Diagnosis on the Problem List?: No Quality: Stroke Does the patient have a stroke diagnosis?: No Physical Exam Vital Signs: Vital Signs: Last Vital Signs Temp 97.3 F 03/22/24 07:21 Pulse 83 03/22/24 07:21 Resp 16 03/22/24 07:21 BP 141/74 H 03/22/24 07:21 Pulse Ox 95 03/22/24 07:21 O2 Del Method Room Air 03/22/24 07:21 O2 Flow Rate 2 03/15/24 10:43 BMI result Body Mass Index 32.5 Appearing in no acute distress head is normocephalic atraumatic eyes pupils are PERRLA sclera is anicteric mouth throat mucous membranes are intact and moist neck is supple no lymphadenopathy, no JVD noted lung sounds are clear to auscultation heart regular rate rhythm, clear S1, S2 positive bowel sounds, abdomen is soft, nontender neuro patient is alert x3, no focal deficits RIght BKA dressing intact DS: Data Data Completed and Pending Completed studies during hospitalization [Text1]: Pending at discharge 03/15/24 08:31 Surgical [PTH] Routine Labs on day of discharge: Laboratory Results - last 24 hr 03/21/24 03/21/24 03/22/24 16:14 19:42 07:25 POC Glucose 196 H 182 H 72 03/22/24 11:27 POC Glucose 126 H Discharge Plan Discharge Anticipated Discharge Date/Time: 03/22/24 11:48 Patient Disposition: Xfer Inpatient Rehab Fac Discharge Diagnosis: diabetes osteomyelitis s/p BKA bacteremia Referrals: [facility] [Other] - 1 Week Jess Marie MD [Physician] - 1 Week Aiden Limon MD [Physician] - 1 Week Discharge Medications: New lisinopril 20 mg Tablet 20 mg PO DAILY Qty: 90 0RF Protocol: Hold for SBP< HOLD for SBP < : 90 amlodipine 5 mg Tablet 5 mg PO DAILY Qty: 90 0RF Protocol: Hold for SBP< HOLD for SBP < : 90 docusate sodium 100 mg Capsule 100 mg PO BID Qty: 90 0RF nicotine 7 mg/24 hr Patch 24 Hour 7 mg transdermal DAILY Qty: 14 0RF oxycodone 5 mg Tablet 10 mg PO Q4H PRN (Reason: pain, moderate to severe) Qty: 20 0RF Rx Instructions: Partial Fill upon patient request. metformin 500 mg Tablet 500 mg PO BIDWM Qty: 90 0RF insulin glargine [Lantus U-100 Insulin] 100 unit/mL Solution 20 unit subcut BEDTIME Qty: 10 0RF polyethylene glycol 3350 17 gram Powder In Packet 17 g PO BID Qty: 30 0RF insulin lispro [Admelog U-100 Insulin lispro] 100 unit/mL Solution See Protocol subcut QIDACHS Qty: 10 0RF Protocol: Insulin Correction Scale Less than or equal to 110 ---- Give (units): 0 111 to 150 Give (units): 0 151 to 200 Give (units): 2 201 to 250 Give (units): 4 251 to 300 Give (units): 6 301 to 350 Give (units): 8 Greater than 350 Give (units): 10 Call MD if Blood Glucose > : 350 cefazolin in dextrose (iso-os) 2 gram/50 mL Piggyback 50 ml IV Q8H Qty: 24 0RF Discontinued naproxen sodium [Aleve] 220 mg Tablet 440 mg PO BID PRN (Reason: Pain) Discharge Orders: Discharge Order (Routine); Ordered 03/22/24 Ordered By: Michelle Mejia Diet: Diabetic diet Activity on Discharge: As tolerated Stand Alone Forms: Patient Portal Discharge page Print Language: Yakut Activity Restrictions/Additional Instructions: Dressing change daily with dry fluffs, kerlix wrap and tara wrap to BKA site; kn ee immobilizer Care Plan Goals: see below Health Concerns: severe sepsis due to osteomyelitis/diabetic foot infection with MSSA +GBS bacteremia s/p BKA new diabetes uncontrolled hypertension LAMAR - resolved anemia Plan of Treatment: will need outaptient follow up with surgery continue IV cefazolin 2 gmq 8hr 03/14 to 04/11 and midline can be removed after final dose. will need follow up with ID after antibiotics are completed follow cbc and bmp while receiving antibiotics norvasc and lisinopril for hypertension - may need further titration diabetic education will need PCP for close follow up after discharge Assessment: see discharge summary
--- NOTE | 2024-03-22 11:53 | MHC.CM.PN ---
pt going to [facility] today at 3:30 pt will let his family know
[2024-03-22 15:09] VITALS: BP 159/84; PULSE 89; RESP 20; TEMP 36.6; O2SAT 97
[2024-03-22] MEDS: oxyCODONE HCl Immed Release 5 MG TABLET 10 MG PO (15:44)
[2024-03-22 16:27] LABS: Glucose, Whole Blood 150 mg/dL (60-115)
== END 2024-03-22 18:15 | DRG 710 ==
LOC: HO.ED 22:44 → HO.EDOVER 22:53 → HO.S3 03-12 00:14
PROVIDERS: Family Medicine; Physician Assistant Medical; Physician Assistant Surgical; Surgery; Admitting Provider Student in an Organized Health Care Education/Training Program; Emergency Provider Emergency Medicine; Visit Provider Nurse Practitioner Acute Care
PROC: 0Y6H0Z2 Detachment at Right Lower Leg, Mid, Open Approach (ICD-10-PCS; CPT 27880; principal; 2024-03-15 07:30)
DX: A41.9 Sepsis, unspecified organism (principal); E87.21 Acute metabolic acidosis; N17.9 Acute kidney failure, unspecified; L03.115 Cellulitis of right lower limb; M86.171 Other acute osteomyelitis, right ankle and foot; E11.52 Type 2 diabetes mellitus with diabetic peripheral angiopathy with gangrene; D64.9 Anemia, unspecified; D75.838 Other thrombocytosis; E11.65 Type 2 diabetes mellitus with hyperglycemia; F17.210 Nicotine dependence, cigarettes, uncomplicated; I10 Essential (primary) hypertension; E11.69 Type 2 diabetes mellitus with other specified complication; B95.61 Methicillin susceptible Staphylococcus aureus infection as the cause of diseases classified elsewhere; K59.00 Constipation, unspecified; B95.1 Streptococcus, group B, as the cause of diseases classified elsewhere; R65.20 Severe sepsis without septic shock; Z23 Encounter for immunization; Z71.6 Tobacco abuse counseling
CPT/HCPCS: 36410; 36415; 73630; 73701; 76775; 80048; 80053; 81001; 82043; 82550; 82570; 82947; 83036; 83605; 84300; 84484; 85007; 85025; 85027; 85610; 85652; 86140; 86850; 86900; 86901; 87040; 87077; 87147; 87186; 87205; 88307; 88311; 90656; 93005; 93306; 93922; 93925; 97110; 97162; 97166; 97530; 97535; 99285; C1751; J0131; J0690; J0736; J0878; J1171; J1642; J1650; J2003; J2405; J2543; J2704; J2795; J3010; J3370; J7120; Q9957; Q9967

== ENCOUNTER → 2024-03-11 21:22 | Outpatient (BNV) | payer OTHER, SELFPAY | PROVIDERS: Admitting Provider Student in an Organized Health Care Education/Training Program; Emergency Provider Emergency Medicine; Visit Provider Internal Medicine Cardiovascular Disease | DX: R00.0 Tachycardia, unspecified (principal) | CPT/HCPCS: 93010 ==

== ENCOUNTER 2024-03-11 22:47 | Outpatient (BNV) | payer OTHER, SELFPAY | END 2024-03-14 07:00 | PROVIDERS: Admitting Provider Student in an Organized Health Care Education/Training Program; Emergency Provider Emergency Medicine; Visit Provider Internal Medicine | DX: I35.1 Nonrheumatic aortic (valve) insufficiency (principal); I35.8 Other nonrheumatic aortic valve disorders | CPT/HCPCS: 93306 ==

== ENCOUNTER → 2024-03-11 22:47 | Outpatient (BNV) | payer OTHER, SELFPAY | PROVIDERS: Admitting Provider Student in an Organized Health Care Education/Training Program; Emergency Provider Emergency Medicine; Visit Provider Surgery | DX: Z89.511 Acquired absence of right leg below knee (principal) | CPT/HCPCS: 27880; 99024; 99222; 99232 ==

== ENCOUNTER → 2024-03-11 22:47 | Outpatient (BNV) | payer OTHER, SELFPAY | PROVIDERS: Admitting Provider Student in an Organized Health Care Education/Training Program; Emergency Provider Emergency Medicine; Visit Provider Student in an Organized Health Care Education/Training Program | DX: Z89.511 Acquired absence of right leg below knee (principal); A41.9 Sepsis, unspecified organism; M86.9 Osteomyelitis, unspecified; E11.621 Type 2 diabetes mellitus with foot ulcer | CPT/HCPCS: 99223; 99232; 99239 ==

== ENCOUNTER → 2024-03-11 22:47 | Outpatient (BNV) | payer OTHER, SELFPAY | PROVIDERS: Admitting Provider Student in an Organized Health Care Education/Training Program; Emergency Provider Emergency Medicine; Visit Provider Internal Medicine | DX: R73.9 Hyperglycemia, unspecified (principal); A41.9 Sepsis, unspecified organism; M86.9 Osteomyelitis, unspecified; L02.91 Cutaneous abscess, unspecified; L03.115 Cellulitis of right lower limb | CPT/HCPCS: 99222 ==

== ENCOUNTER 2024-04-04 13:36 | Outpatient (AMB) | payer OTHER, SELFPAY ==
--- NOTE | 2024-04-04 13:33 | A.OFFVIS_ITS ---
Vital Signs 04/04/24 14:04 Pulse 83 Pulse Source Pulse Oximeter Temp 99.5 F Temp Source Oral Pulse Oximetry (%) 98 Oxygen Delivery Method Room Air Intake Visit Reasons: [facility] re[facility] foot infection Allergies No Known Allergies Allergy (Verified 04/05/24 14:21) [facility] reff foot infection: Details: She has been doing well [facility] Medical History No pertinent past medical history Social History Household Members: None Housing: Apartment Do you presently have visiting nurse or other home services: No Alcohol intake: current Alcohol intake frequency: holidays/special occasions only Patient Tobacco Use Status: Current everyday Tobacco user Tobacco use type: Cigarette Cigarettes Per Day: 15 e-Cigarette/Vaping Use: Never Used Substance Use Type: Marijuana service: No Review of Systems Const All systems reviewed & are unremarkable except as noted in HPI and below Physical Exam Vital Signs: Last Vital Signs Temp 99.5 F 04/04/24 14:04 Pulse 83 04/04/24 14:04 Pulse Ox 98 04/04/24 14:04 Oxygen Delivery Method Room Air 04/04/24 14:04 Const General: cooperative Orientation/consciousness: patient oriented x3 HEENT Head: Yes normal to inspection Mouth: Normal oral and palatal mucosa present Eyes General: appearance normal, both eyes and all related structures Pupils: Equal, round and reactive pupils present Resp Effort & Inspection: normal respiratory effort Cardio Rate: regular rate Rhythm: regular rhythm GI Palpation (GI): Soft to palpation and nontender General: Yes no CVA tenderness Back/Spine/Pelvis Back: no CVA tenderness Skin General skin exam: no rashes or lesions noted Neuro General: patient oriented x3 Cranial nerves: Yes CN's II-XII intact bilaterally and Yes Equal, round and reactive pupils present Extrem General: Yes normal to inspection Psych Appearance: grossly normal Assessment & Plan Assessment & Plan (1) Status post below knee amputation of right lower extremity: Code(s): Z89.511 - Acquired absence of right leg below knee Category: Surgical Plan: Finish antibiotics. No changes at this time. (2) Sepsis: Code(s): A41.9 - Sepsis, unspecified organism Category: Medical Plan: n/a Plan n/a Orders: Orders IR cvc remove any age 1204/04/24 A41.9 - Sepsis, unspecified organism, Z89.511 - Acquired absence of right leg below knee Coding Level of Care Code Est Pt Level 3 (02346) Diagnoses Status post below knee amputation of right lower extremity Z89.511 Sepsis A41.9
[2024-04-04 14:04] VITALS: PULSE 83; TEMP 37.5; O2SAT 98
== END 2024-04-04 16:43 | disposition home or self-care (01) ==
PROVIDERS: Visit Provider Internal Medicine
DX: Z89.511 Acquired absence of right leg below knee (principal); A41.9 Sepsis, unspecified organism
CPT/HCPCS: 99213

== ENCOUNTER → 2024-04-04 13:36 | Outpatient (BNVA) | payer OTHER, SELFPAY | PROVIDERS: Visit Provider Internal Medicine ==

== ENCOUNTER 2024-04-05 14:11 | Outpatient (AMB) | payer OTHER, SELFPAY ==
--- NOTE | 2024-04-05 14:12 | MHC.OFFVIS ---
Vital Signs 04/05/24 14:21 Height 5 ft 8 in Weight 213 lb 10.047 oz BMI 32.5 Respiration 18 Intake Visit Reasons: suture removal below knee Intake Note: Patient is seen in office for post op assessment post right BKA. Pt c/o: is currently in a facility and has a nurse changing dressing daily, still has the phantom pain, throbbing, taking oxy as needed for the pain Supervisor Gel[employer] Plant Required: No Accompanied by: Self / Same As Patient Allergies No Known Allergies Allergy (Verified 04/05/24 14:21) HPI Comments Details: Patient returns for wound check following right below-knee amputation on 03/15/2024. He feels well and denies any ongoing leg pain. [facility] Medical History No pertinent past medical history Social History Household Members: None Housing: Apartment Do you presently have visiting nurse or other home services: No Alcohol intake: current Alcohol intake frequency: holidays/special occasions only Patient Tobacco Use Status: Current everyday Tobacco user Tobacco use type: Cigarette Cigarettes Per Day: 15 e-Cigarette/Vaping Use: Never Used Substance Use Type: Marijuana service: No Physical Exam Vital Signs: Last Vital Signs Resp 18 04/05/24 14:21 BMI result Body Mass Index 32.5 Const General: comfortable Nutritional Appearance: well nourished Orientation/consciousness: patient oriented x3 Limitations: wheelchair Resp Effort & Inspection: normal respiratory effort Neuro General: patient oriented x3 Extrem Other: Right BKA stump is clean, dry, and intact with no bleeding or discharge appreciated. Clean dressings applied. Assessment & Plan Assessment & Plan (1) Status post below knee amputation of right lower extremity: Code(s): Z89.511 - Acquired absence of right leg below knee Category: Surgical Plan Patient continues to do well following below-knee amputation. Wounds are clean and intact without evidence of infection. Perfect flap with no evidence of necrosis. Plan follow-up with Dr. Tapia in 1 month. Food Tray [employer]er will contact patient for further stump management. Coding Level of Care Code Global (18403) Diagnoses Status post below knee amputation of right lower extremity Z89.511
[2024-04-05 14:21] VITALS: RESP 18; BMI 32.5
== END 2024-04-05 14:40 | disposition home or self-care (01) ==
PROVIDERS: Visit Provider Surgery
DX: Z89.511 Acquired absence of right leg below knee (principal)
CPT/HCPCS: 99024

== ENCOUNTER 2024-04-18 14:06 | Inpatient (IN) | payer OTHER, SELFPAY ==
--- NOTE | ~2024-04-18 | XR_ITS ---
EXAMINATION: XR TIBIA AND FIBULA, RIGHT CLINICAL INFORMATION: possible amp osteo COMPARISON: None. TECHNIQUE: AP and lateral views of the right tibia and fibula were obtained. FINDINGS: There is Amputation beyond the proximal tibia and fibula with a moderate-sized stump. There is gas visualized in the anterior distal stump likely inflammatory process. There is no bony erosive changes seen to suspect any osteomyelitis. There is dystrophic calcification along the posterior tibial stump. XR/XR tibia fibula RT 2V IMPRESSION: Amputation beyond the proximal tibia and fibula with a moderate size stomach. There is gas visualized along the anterior distal. Likely inflammatory process. There is no suspicion for osteomyelitis. Electronically signed by: Diego Muniz MD 04/18/2024 03:54 PM EST
[2024-04-18 14:13] VITALS: BP 176/85; BP 180/90; PULSE 85; PULSE 91; RESP 18; TEMP 36.8; O2SAT 93; O2SAT 97; BMI 35.8
--- NOTE | 2024-04-18 14:18 | ED_ITS ---
HPI - General Adult General Chief complaint: Wound/Laceration Stated complaint: OPEN WOUND NEAR RT AMPUTATED LEG PER EMS Time Seen by Provider: 04/18/24 14:17 Source: patient and EMS Mode of arrival: EMS Limitations: no limitations History of Present Illness ED Provider: Elaine Carvalho PA-C HPI narrative: Patient is a 59 year old assigned male at with a history of DM and recent right BKA presenting to the emergency department today with a worsening dehiscenced right BKA wound. Patient states that last week he bumped his right BKA incision on a door by accident and the wound opened up a little bit. Patient states he immediately went to [facility] who told him to do wet to dry dressings and follow up outpatient with his surgeon. Patient states that soon after, during a dressing change, the rest of the wound opened up and ever since it has gotten more red and had more drainage Patient denies any dizziness, lightheadedness, abdominal pain, nausea, vomiting, fever, chills, blurry vision, double vision, loss of vision, chest pain, difficulty breathing, shortness of breath, back pain, night sweats, pain with urination, increased urinary frequency, increased urinary urgency, blood in his urine or stool, syncope or a near syncopal episode, bowel incontinence, bladder incontinence, or any other complaints at this time. Onset (ago): day(s) Location: right and lower extremity Relieving factors: none Exacerbating factors: none Associated symptoms: denies other symptoms Treatments prior to arrival: none Related Data Home Medications ?Medication ?Instructions ?Recorded ?Confirmed enoxaparin 40 mg/0.4 mL 40 mg subcut DAILY 04/05/24 subcutaneous syringe gabapentin 100 mg capsule 200 mg PO BEDTIME 04/05/24 sodium phosphates 19 gram-7 118 ml AR BEDTIME PRN 04/05/24 gram/118 mL enema tuberculin PPD ea intradermal 04/05/24 Previous Rx's ?Medication ?Instructions ?Recorded amlodipine 5 mg tablet 5 mg PO DAILY #90 tabs 03/20/24 cefazolin 2 gram/50 mL in dextrose 50 ml IV Q8H #24 ea 03/20/24 (iso-osmotic) intravenous piggyback docusate sodium 100 mg capsule 100 mg PO BID #90 caps 03/20/24 insulin glargine 100 unit/mL 20 unit (0.2 mL) subcut BEDTIME 03/20/24 subcutaneous solution (Lantus #10 mL U-100 Insulin) insulin lispro 100 unit/mL See Protocol subcut QIDACHS #10 mL 03/20/24 subcutaneous solution (Admelog U-100 Insulin lispro) lisinopril 20 mg tablet 20 mg PO DAILY #90 tabs 03/20/24 metformin 500 mg tablet 500 mg PO BIDWM #90 tabs 03/20/24 nicotine 7 mg/24 hr daily 7 mg transdermal DAILY #14 ea 03/20/24 transdermal patch oxycodone 5 mg tablet 10 mg (2 x 5 mg) PO Q4H PRN pain, 03/20/24 moderate to severe #20 tabs Allergies Allergy/AdvReac Type Severity Reaction Status Date / Time No Known Allergies Allergy Verified 04/18/24 14:19 Review of Systems 2 Constitutional: Constitutional: Reports no additional constitutional complaints, Denies chills, Denies fever(s) and Denies night sweats Eyes: Eyes: Reports no additional eye complaints, Denies blurry vision, Denies change in vision, Denies diplopia, Denies eye discharge, Denies loss of vision and Denies eye pain ENT: Denies dizziness Cardiovascular: Cardiovascular: Reports no additional cardiovascular complaints, Denies chest pain, Denies lightheadedness, Denies Loss of Consciousness and Denies dyspnea Respiratory: Respiratory: Reports no additional respiratory complaints and Denies dyspnea Gastrointestinal: Gastrointestinal: Reports no additional gastrointestinal complaints, Denies abdominal pain, Denies melena, Denies hematochezia, Denies change in bowel habits and Denies change in stool character Genitourinary: Genitourinary: Reports no additional male genitourinary complaints, Denies hematuria, Denies oliguria, Denies difficulty urinating, Denies dysuria, Denies urinary frequency, Denies urinary hesitancy, Denies urinary incontinence and Denies urinary urgency Musculoskeletal: Musculoskeletal: Reports no additional musculoskeletal complaints, Denies numbness and Denies tingling Comments: right BKA wound dehissed Neurologic: Denies dizziness, Denies loss of vision, Denies numbness and Denies tingling Psychiatric: Psychiatric: Reports no additional psychiatric complaints Endocrine: Endocrine: Reports no additional endocrine complaints Hematologic/Lymphatic: Hematologic/Lymphatic: Reports no additional hematologic/lymphatic complaints Allergic/Immunologic: Allergic/Immunologic: Reports no additional allergic/immunologic complaints PMFSH Past Medical History Attestation statement: The following information was validated with the patient. Source: old records reviewed and nursing notes reviewed Medical History No pertinent past medical history Surgical History (Updated 04/18/24 @ 15:32 by Flori Jacobs PA-C) Status post below knee amputation of right lower extremity Social History Social History Household Members: None Housing: Apartment Do you presently have visiting nurse or other home services: No Alcohol intake: current Alcohol intake frequency: holidays/special occasions only Patient Tobacco Use Status: Current everyday Tobacco user Tobacco use type: Cigarette Cigarettes Per Day: 15 Smoked in Last 30 Days: No e-Cigarette/Vaping Use: Never Used Use of substances other than those prescribed or required for medical reasons: No Substance Use Type: Marijuana Advance Directives: No Advance Directives Information Provided: Yes Do you have a plan to hurt others: No Plan service: No Physical Exam ED Vital Signs: Vital Signs - 24 hr 04/18/24 14:13 Temperature 98.3 F Pulse Rate 85 Respiratory Rate 18 Blood Pressure 176/85 H Pulse Oximetry 93 Oxygen Delivery Method Room Air BMI result Body Mass Index 35.8 Const General: cooperative, no acute distress, alert and awake Nutritional Appearance: well nourished Orientation/consciousness: patient oriented x3 Limitations: no limitations HENMT Head: Yes normal to inspection and Yes atraumatic Ears: hearing grossly normal bilaterally and external ears normal General nose exam: Normal external nose present, no nasal discharge noted and no epistaxis Face and sinus: Yes normal facial exam, No abrasion and No laceration Mouth: Normal oral and palatal mucosa present, no drooling and no muffled voice Eyes General: appearance normal, both eyes and all related structures Periorbital: periorbital findings normal Eyelids: Yes eyelids normal Conjunctivae: conjunctivae normal Pupils: Equal, round and reactive pupils present EOM: EOMs intact bilaterally Neck Neck: Yes normal visual inspection, Yes full ROM and Yes no lymphadenopathy Chest Chest palpation & inspection: normal inspection of the chest Resp Effort & Inspection: normal respiratory effort and able to speak in complete sentences GI Inspection: Yes normal to inspection Neuro General: patient oriented x3 and moves all extremities Cranial nerves: Yes Equal, round and reactive pupils present Cognition (Neuro): normal cognition Extrem Other: General: Yes capillary refill normal Psych Appearance: grossly normal Mental Status: mental status grossly normal Affect: normal affect Attitude: cooperative Thought process: Normal thought process present Thought content: Normal thought content present Insight: Good insight present (Psych) Medications Administered Discontinued Medications Generic Name Dose Route Start Last Admin Trade Name Freq PRN Reason Stop Dose Admin Piperacillin Sod/Tazobactam 50 mls @ 100 mls/hr 04/18/24 15:14 04/18/24 15:41 Sod 3.375 gm/ Sodium Chloride IV 04/18/24 15:43 100 mls/hr ONCE ONE Administration Medical Decision Making Medical Decision Making [facility] Narrative: Patient is a 59 year old assigned male at with a history of DM and recent right BKA presenting to the emergency department today with a worsening dehiscenced right BKA wound. Patient's physical exam was as noted in the physical exam portion of this note. Patient's right BKA wound was completely open with some surrounding erythema and warmth. Patient's blood work showed a CRP of 2.32. Patient's right tib fib x-ray showed no acute process. I consulted with the general surgery team who came and evaluated the patient. They recommended medical admission for IV antibiotics and they intend to take him to the OR on 04/19/2024 for further wound cleaning / debridement. Patient's clinical presentation is not consistent with sepsis (@1545). I spoke to the hospitalist team who agreed to admission. I explained my physical exam findings as well as all test results to the patient. I answered all questions asked by the patient. Patient verbalized agreement and understanding with this treatment plan and admission. Differential Diagnosis Differential Diagnoses: The differential diagnosis associated with the presentation includes Cellulitis Wound dehiss Admission/Observation Consideration of admission/observation: Escalation of care including admission/observation considered Patient admitted as noted in the MDM Rationale portion of this note. Consult Healthcare Provider Management of the patient was discussed with: Hospitalist (agreed to admission as noted in the MDM Rationale portion of this note.) and [employer] (spoke to the general surgery team as noted in the MDM rationale portion of this note.) Lab Data [facility] Lab Attestation statement: I reviewed the patient's lab results. My interpretation of these results are in the MDM Rationale portion of this note. 04/18/24 15:11 04/18/24 15:11 Labs: Lab Results 04/18/24 Range/Units 15:11 WBC 9.8 (4.8-10.8) X10*3/uL RBC 3.62 L D (4.60-5.80) X10*6/uL Hgb 9.5 L (14.0-18.0) g/dl Hct 29.0 L D (42.0-52.0) % MCV 80.1 (80.0-98.0) fL MCH 26.2 L (27.0-33.0) pg MCHC 32.8 (31.0-36.0) g/dl RDW 15.0 (11.0-16.0) % Plt Count 526 H D (160-400) X10*3/uL MPV 8.1 L (9.4-12.4) fL Immature Gran % (Auto) 0.5 H (0.0-0.4) % Neut % (Auto) 68.8 (45-73) % Lymph % (Auto) 13.6 L (20-40) % [place] % (Auto) 9.0 (2-11) % Eos % (Auto) 7.3 H (0-4) % Baso % (Auto) 0.8 (0-2) % Lymph # (Auto) 1.3 (1.2-4.9) X10*3/uL [place] # (Auto) 0.9 (0.1-1.2) X10*3/uL Eos # (Auto) 0.7 H (0.0-0.4) X10*3/uL Baso # (Auto) 0.1 (0.0-0.2) X10*3/uL Abs Immat Gran (auto) 0.05 H (0.00-0.03) X10*3/uL Absolute Neuts (auto) 6.7 (2.0-8.3) x10*3/uL Absolute Nucleated RBC 0.000 (0.0-0.012) X10*3/uL Nucleated RBC % (auto) 0.0 (0.0-0.2) /100WBC Sodium 138 (135-145) mmol/L Potassium 4.0 (3.3-5.1) mmol/L Chloride 106 (96-108) mmol/L Carbon Dioxide 25 (22-29) mmol/L Anion Gap 11 L (12-20) BUN 9 (9-16) mg/dL Creatinine 1.03 (0.5-1.4) mg/dL Estim Creat Clear Calc 90.3 Estimated GFR > 60 Random Glucose 152 H (60-115) mg/dL Lactic Acid 0.9 (0.5-2.0) mmol/L Calcium 8.7 D (8.4-10.2) mg/dL Total Bilirubin 0.4 (0.0-1.0) mg/dL AST 26 (5-37) U/L ALT 9 (0-40) U/L Alkaline Phosphatase 212 H (39-117) U/L C-Reactive Protein 2.32 H (< or = 0.50) mg/dL Total Protein 6.9 (6.5-8.0) g/dL Albumin 3.1 L (3.5-5.0) g/dL Independent Interpretation I performed an independent interpretation of an: Plain X-Ray Interpretation: My interpretation is in agreement with the radiologist's impression of this imaging study. L EXAMINATION: XR TIBIA AND FIBULA, RIGHT CLINICAL INFORMATION: possible amp osteo COMPARISON: None. TECHNIQUE: AP and lateral views of the right tibia and fibula were obtained. FINDINGS: There is amputation beyond the proximal tibia and fibula with a moderate-sized stump. There is gas visualized in the anterior distal stump likely inflammatory process. There is no bony erosive changes seen to suspect any osteomyelitis. There is dystrophic calcification along the posterior tibial stump. XR/XR tibia fibula RT 2V IMPRESSION: Amputation beyond the proximal tibia and fibula with a moderate size stomach. There is gas visualized along the anterior distal. Likely inflammatory process. There is no suspicion for osteomyelitis. Electronically signed by: Diego Muniz MD 04/18/2024 03:54 PM [facility] Dictated By: Diego Muniz MD Signed By: Electronically signed by Diego Muniz MD 04/18/24 1551 Radiology Impression Discussion of test interpretation with radiology: I have reviewed the radiologist's reading. Independent Historian Clinical information obtained from an independent historian. History obtained from or confirmed by: EMS (EMS provided additional history and confirmed the history provided by the patient.) Chronic Conditions Patient?s care impacted by: Diabetes Critical Care Time Critical Care Time Critical Care Time: Yes Total Critical Care Time: 34 Attestation: I spent 34 minutes of Critical Care Time with this patient. This does not include time spent on separately reported billable procedures. Discharge Plan Discharge Clinical Impression: Dehiscence of wound, Cellulitis Patient Disposition: Admitted As Inpatient Print Language: Mohawk
--- NOTE | 2024-04-18 14:26 | HO.SKINPHOTO ---
Location: R BKA wound dehiscence Category: Stage: Length: Width: Depth: cm Location: Category: Stage: Length: Width: Depth: cm Location: Category: Stage: Length: Width: Depth: cm Location: Category: Stage: Length: Width: Depth: cm Location: Category: Stage: Length: Width: Depth: cm Location: Category: Stage: Length: Width: Depth: cm
--- OUTSIDE RECORDS SUMMARY | 2024-04-18 14:42 | XMS_ITS | Continuity of Care Document ---
Author Organization [facility] ter Address [address] [place] [id number]- Care Team Providers Care Coil Tester Name Role Phone Gerardo Saldana MD Primary Care Physician Encounter [facility] ACCT R [id number] Date(s): 04/12/24 - 04/12/[address] [address]- Encounter Diagnosis BKA stump complication(Final) - 04/12/24 S/P BKA (below knee amputation)(Final) - 04/12/24 Bleeding from wound(Final) - 04/12/24 Discharge Disposition: A-Transfer SNF Attending Physician: Louie Art DO Admitting Physician: Louie Art DO Referring Physician: Not on Staff, Referring MD Encounter Type: Disch ES Allergies, Adverse Reactions, Alerts No Known Allergies Medications oxyCODONE 5 mg oral tablet 10 mg, Tablet, By Mouth, Every 6 hours, PRN for Pain , Moderate, Routine, 04/12/24 12:40:00 PM EST Start Date: 04/12/24 Stop Date: 04/13/24 Status: Discontinued Repeat number: 1 Results Radiology Reports * Exam Date Time Procedure Performing Provider Status 04/12/24 9:19 AM Tibia/Fibula 2 Views Right Lauren Castro (Verified) Notes: (Tibia/Fibula 2 Views Right) Reason For Exam: with Pain;Trauma RESULT: Tibia/Fibula 2 Views Right Tibia/Fibula 2 Views Right Hx of Present Illness: History of BKA approximately 1 month ago. COMPARISON: None. FINDINGS: Postoperative changes from BKA. Osseous margins appear sharp. Extensive soft tissue gas is noted throughout the BKA stump. No knee joint effusion. Mineralization at the medial aspect of the tibial amputation site, likely early healing. IMPRESSION: Extensive gas noted throughout the BKA stump likely reflects open wound. Cannot exclude gas-formingorganism. No radiographic evidence of osteomyelitis at this time. Findings relayed through secure messaging to Valerie Garrett MD at 9:27 AM on 04/12/2024. WSN: [id number] Ordering Physician: Valerie Garrett Dictated By: Ze Ortega MD Dictated Date/Time: 04/12/24 9:27 am Reviewed By: Ze Ortega MD Signed By: Ze Ortega MD Signed Date/Time: 04/12/24 9:27 am Transcribed By: YOKO Transcribed Date/Time: 04/12/24 9:22 am Vital Signs Most recent to oldest [Reference Range]: 1 2 3 Height 174 cm (04/12/24 8:21 AM) Weight 109 kg (04/12/24 8:21 AM) Oxygen Saturation [94-100 %] 95 % (04/12/24 5:07 PM) 98 % (04/12/24 3:51 PM) 99 % (04/12/24 12:29 PM) Pulse Rate [55-90 bpm] 95 bpm *H* (04/12/24 5:07 PM) 87 bpm (04/12/24 3:51 PM) 99 bpm *H* (04/12/24 12:29 PM) Blood Pressure [90-138/55-84 mm Hg] 173/95mm Hg *H* (04/12/24 5:07 PM) 172/92mm Hg *H* (04/12/24 3:51 PM) 164/86mm Hg *H* (04/12/24 12:29 PM) Respiratory Rate [16-30 br/min] 16 br/min (04/12/24 5:07 PM) 16 br/min (04/12/24 3:51 PM) 18 br/min (04/12/24 1:27 PM) Temperature [96.8-100.4 DegF] 98.3 DegF (04/12/24 8:21 AM) Mode of Delivery (Oxygen) Room air (04/12/24 5:07 PM) Room air (04/12/24 3:51 PM) Room air (04/12/24 12:29 PM) Blood pressure sites Arm, right (04/12/24 5:07 PM) Arm, right (04/12/24 3:51 PM) Arm, right (04/12/24 12:29 PM) Temperature Route Oral (04/12/24 8:21 AM) Dry Weight 109 kg (04/12/24 8:21 AM) Weight Obtained Via Patient/family state d (04/12/24 8:21 AM) Patient Care team information Care Team Personnel Name: Gerardo Saldana MD Position: [facility] Physician - Primary Care Member Role: PCP Address: [address] [place] [address] [address] [facility] [address] Telecom: Care Team Related Persons Name: PRISCILA LAZCANO Insurance Providers Guarantor name: JOSE ANGEL Health Plan Information #: 1 Payer: [facility] [employer] NON [employer] HMO Member Number: [id number] Policy Number: JOSE ANGEL Group Number: [id number] Health Plan Information #: 2 Payer: [facility] [employer] NON [employer] HMO Member Number: [id number] Policy Number: JOSE ANGEL Group Number: NA
[2024-04-18 15:19] LABS: MANUAL DIFF FLAG NO
[2024-04-18 15:20] LABS: Basophils Absolute Auto 0.1 X10*3/uL (0.0-0.2); Basophils Percent Auto 0.8 % (0-2); Eosinophils Absolute Auto 0.7 X10*3/uL (0.0-0.4); Eosinophils Percent Auto 7.3 % (0-4); Hemoglobin 9.5 g/dl (14.0-18.0); Imm Gran Abs Auto 0.05 X10*3/uL (0.00-0.03); Imm Gran Pct Auto 0.5 % (0.0-0.4); Lymphocytes Absolute Auto 1.3 X10*3/uL (1.2-4.9); Lymphocytes Percent Auto 13.6 % (20-40); Mean Corpuscular HGB Conc 32.8 g/dl (31.0-36.0); Mean Corpuscular Hemoglobin 26.2 pg (27.0-33.0); Mean Corpuscular Volume 80.1 fL (80.0-98.0); Mean Platelet Volume 8.1 fL (9.4-12.4); Monocytes Absolute Auto 0.9 X10*3/uL (0.1-1.2); Neutrophils Absolute Auto 6.7 x10*3/uL (2.0-8.3); Neutrophils Percent Auto 68.8 % (45-73); Platelet Count 526 X10*3/uL (160-400); Red Blood Count 3.62 X10*6/uL (4.60-5.80); White Blood Count 9.8 X10*3/uL (4.8-10.8)
--- NOTE | 2024-04-18 15:28 | P.CONGS_ITS ---
History of Present Illness Consult details Consult date: 04/18/24 <Flori Jacobs PA-C - Last Filed: 04/18/24 15:39> Reason for consult: wound care <SALOMON Membreno Last Filed: 04/18/24 15:39> Requesting physician: Elaine Carvalho <Flori Jacobs PA-C - Last Filed: 04/18/24 15:39> Narrative: Mr. 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 He had been doing well and the BKA site had healed well at his last post operative visit. He finished his IV cefazolin on 04/11. He reports he bumped his amp site last week and the wound opened. He was therefore sent to [facility] and was instructed to do wet to dry dressings and f/u as an outpatient however the wound continued to open further and was completely open at the suture line today during his dressing change. He was therefore sent to the ED. He denies significant pain at the site. <Flori Jacobs PA-C Last Filed: 04/18/24 15:39> Review of Systems 2 Constitutional: Constitutional: Denies chills and Denies fever(s) < Flori Jacobs PA-C - Last Filed: 04/18/24 15:39> ENT: Denies dizziness <SALOMON Membreno Last Filed: 04/18/24 15:39> Cardiovascular: Cardiovascular: Denies chest pain and Denies dyspnea < Flori Jacobs PA-C - Last Filed: 04/18/24 15:39> Respiratory: Respiratory: Denies dyspnea <SALOMON Membreno Last Filed: 04/18/24 15:39> Gastrointestinal: Gastrointestinal: Denies abdominal pain, Denies nausea and Denies vomiting <SALOMON Membreno Last Filed: 04/18/24 15:39> Integumentary/Breasts: Skin/Breast: Reports as per HPI <SALOMON Membreno Last Filed: 04/18/24 15:39> Neurologic: Denies dizziness <SALOMON Membreno Last Filed: 04/18/24 15:39> [facility] Past Medical History Medical History: Medical History No pertinent past medical history <SALOMON Membreno Last Filed: 04/18/24 15:39> Surgical History Surgical History: Surgical History Status post below knee amputation of right lower extremity <SALOMON Membreno Last Filed: 04/18/24 15:39> Social History Social History: Social History Household Members: None Housing: Apartment Do you presently have visiting nurse or other home services: No Alcohol intake: current Alcohol intake frequency: holidays/special occasions only Patient Tobacco Use Status: Current everyday Tobacco user Tobacco use type: Cigarette Cigarettes Per Day: 15 Smoked in Last 30 Days: No e-Cigarette/Vaping Use: Never Used Use of substances other than those prescribed or required for medical reasons: No Substance Use Type: Marijuana Advance Directives: No Advance Directives Information Provided: Yes Do you have a plan to hurt others: No Plan service: No <Flori Jacobs PA-C - Last Filed: 04/18/24 15:39> Meds Allergies/Adverse reactions: Allergies Allergy/AdvReac Type Severity Reaction Status Date / Time No Known Allergies Allergy Verified 04/18/24 14:19 <SALOMON Membreno Last Filed: 04/18/24 15:39> Active Medications: Current Medications Piperacillin Sod/Tazobactam (Sod 3.375 gm/ Sodium Chloride) 50 mls @ 100 mls/hr IV ONCE ONE Stop: 04/18/24 15:43 Vancomycin HCl (Vancomycin/Ns) 2,000 mg in 500 mls @ 250 mls/hr IV ONCE ONE Stop: 04/18/24 17:29 <SALOMON Membreno Last Filed: 04/18/24 15:39> Home medications: Home Medications ?Medication ?Instructions ?Recorded ?Confirmed ?Last Taken ?Type enoxaparin 40 mg/0.4 mL 40 mg subcut DAILY 04/05/24 04/18/24 Unknown History subcutaneous syringe gabapentin 100 mg capsule 200 mg PO BEDTIME 04/05/24 04/18/24 Unknown History Saccharomyces boulardii 10 billion 10,000 mmu cells PO TID 04/18/24 04/18/24 Unknown History cell capsule acetaminophen 325 mg tablet 650 mg PO Q4H PRN Fever Or Pain 04/18/24 04/18/24 Unknown History amlodipine 10 mg tablet 10 mg PO DAILY 04/18/24 04/18/24 Unknown History bisacodyl 10 mg rectal suppository 10 mg AL DAILY PRN Constipation 04/18/24 04/18/24 Unknown History buspirone 5 mg tablet 5 mg PO BID 04/18/24 04/18/24 Unknown History carvedilol 3.125 mg tablet 3.125 mg PO BID 04/18/24 04/18/24 Unknown History dextrose 40 % oral gel 15 g PO Q2H PRN Hypoglycemia 04/18/24 04/18/24 Unknown History ferrous sulfate 325 mg (65 mg 325 mg PO BID 04/18/24 04/18/24 Unknown History iron) tablet,delayed release insulin glargine 100 unit/mL 10 unit subcut BEDTIME 04/18/24 04/18/24 Unknown History subcutaneous solution (Lantus U-100 Insulin) magnesium hydroxide 400 mg/5 mL 30 ml PO DAILY PRN Constipation 04/18/24 04/18/24 Unknown History oral suspension (Milk of Magnesia) oxycodone 5 mg tablet 10 mg PO Q6H PRN pain, moderate to 04/18/24 04/18/24 Unknown History severe sennosides 8.6 mg tablet (senna) 17.2 mg PO DAILY Constipation 04/18/24 04/18/24 Unknown History sodium phosphates 19 gram-7 118 ml AL DAILY PRN Constipation 04/18/24 04/18/24 Unknown History gram/118 mL enema (Fleet Enema) <Flori Jacobs PA-C - Last Filed: 04/18/24 15:39> Physical Exam 2 Vital Signs: Vital Signs: Last Vital Signs Temp 98.3 F 04/18/24 14:13 Pulse 85 04/18/24 14:13 Resp 18 04/18/24 14:13 BP 176/85 H 04/18/24 14:13 Pulse Ox 93 04/18/24 14:13 O2 Del Method Room Air 04/18/24 14:13 BMI result Body Mass Index 35.8 <Flori CamachoDIONTE yuanCass - Last Filed: 04/18/24 15:39> Const: General: cooperative, comfortable, no acute distress and alert < Flori ArleneAMAN yuanSimon - Last Filed: 04/18/24 15:39> Orientation/consciousness: patient oriented x3 <Flori CamachoAMAN yuanSimon - Last Filed: 04/18/24 15:39> Resp: Effort & Inspection: normal respiratory effort <Flori CamachoAMAN yuanSimon Ramsey Last Filed: 04/18/24 15:39> Cardio: Rate: regular rate <Flori aCmachoAMAN yuanSimon Ramsey Last Filed: 04/18/24 15:39> Skin: General skin exam: no rashes or lesions noted <Flori CamachoAMAN yuanSimon Last Filed: 04/18/24 15:39> Neuro: General: patient oriented x3 and moves all extremities <Flori CamachoAMAN yuanSimon - Last Filed: 04/18/24 15:39> Extrem: Other: right BKA site opened across the suture line; no palpable bone, some slough and necrotic tissue covering the muscle flap, no active bleeding, moderate edema at distal end, no significant erythema, <Flori ArleneAMAN yuanSimon Ramsey Last Filed: 04/18/24 15:39> Results Labs Result diagrams: 04/18/24 15:11 04/18/24 15:11 <Flori CamachoDIONTE yuanCass Ramsey Last Filed: 04/18/24 15:39> Labs: Abnormal lab results 04/18/24 Range/Units 15:11 RBC 3.62 L D (4.60-5.80) X10*6/uL Hgb 9.5 L (14.0-18.0) g/dl Hct 29.0 L D (42.0-52.0) % MCH 26.2 L (27.0-33.0) pg Plt Count 526 H D (160-400) X10*3/uL MPV 8.1 L (9.4-12.4) fL Immature Gran % (Auto) 0.5 H (0.0-0.4) % Lymph % (Auto) 13.6 L (20-40) % Eos % (Auto) 7.3 H (0-4) % Eos # (Auto) 0.7 H (0.0-0.4) X10*3/uL Abs Immat Gran (auto) 0.05 H (0.00-0.03) X10*3/uL Short CBC 04/18/24 Range/Units 15:11 WBC 9.8 (4.8-10.8) X10*3/uL Hgb 9.5 L (14.0-18.0) g/dl Hct 29.0 L D (42.0-52.0) % Plt Count 526 H D (160-400) X10*3/uL All other labs normal. 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 Site does not appear to have a surrounding cellulitis but given wound opening, can continue IV abx for now. There is slough and necrotic tissue present which will need to be debrided. Hopefully will place wound vac following. There appears to be too much tension to allow for primary closure after debridement. He has been added onto the OR schedule for tomorrow for wound debridement, wound vac placement. Can continue with wet to dry dressing for now, right leg elevation. NPO after midnight. Patient comfortable with plan. <Flori Jacobs PA-C - Last Filed: 04/18/24 15:39> Procedures Date of Service Date of Service: 04/18/24 <Flori Jacobs PA-C - Last Filed: 04/18/24 15:39> 04/18/24 <Aiden Limon MD - Last Filed: 04/18/24 18:07>
[2024-04-18 15:31] LABS: Lactic Acid 0.9 mmol/L (0.5-2.0)
[2024-04-18 15:41] LABS: Alanine Aminotransferase 9 U/L (0-40); Albumin Level 3.1 g/dL (3.5-5.0); Anion Gap 11 (12-20); Aspartate Amino Transferase 26 U/L (5-37); Bilirubin Total 0.4 mg/dL (0.0-1.0); Blood Urea Nitrogen 9 mg/dL (9-16); C Reactive Protein 2.32 mg/dL (< or = 0.50); Calcium 8.7 mg/dL (8.4-10.2); Carbon Dioxide 25 mmol/L (22-29); Chloride 106 mmol/L (96-108); Creatinine Clr Calc Pharmacy 90.3; Estimated Glomerular Filt Rate > 60; Glucose Random 152 mg/dL (60-115); Sodium 138 mmol/L (135-145); Total Protein 6.9 g/dL (6.5-8.0)
[2024-04-18] MEDS: Piperacillin Sodium/Tazobactam 3.375 GM in 0.9 % Sodium Chloride 50 ML IV ×2 (15:41→22:29)
[2024-04-18 15:48] LABS: Alkaline Phosphatase 212 U/L (39-117)
[2024-04-18 15:57] LABS: Erythrocyte Sedimentation Rate 81 MM/HR (0-15)
--- NOTE | 2024-04-18 16:08 | P.HPHOSP_ITS ---
History of Present Illness Date of Service: 04/18/24 Chief Complaint: Stump wound dehiscence 59 year old male with a history of DM and recent right BKA presenting to the emergency department today with a worsening dehiscenced right BKA wound. Patient states that last week he bumped his right BKA incision on a door by accident and the wound opened up a little bit. Patient states he immediately went to [facility] who told him to do wet to dry dressings and follow up outpatient with his surgeon. Patient states that soon after, during a dressing change, the rest of the wound opened up and ever since it has gotten more red and had more drainage. States earlier today at rehab he was getting into a closet and struck stump on door which caused worse bleeding prompting presentation to ER. In the emergency room patient was seen in consultation by surgery who plan to take patient to the OR in the a.m. for debridement Review of Systems 2 Review of Systems: Denies chest pain Denies shortness of breath Denies nausea vomiting diarrhea Denies fever chills PMFSH Medical History No pertinent past medical history Surgical History Status post below knee amputation of right lower extremity Social History Household Members: None Housing: Apartment Do you presently have visiting nurse or other home services: No Alcohol intake: current Alcohol intake frequency: holidays/special occasions only Patient Tobacco Use Status: Current everyday Tobacco user Tobacco use type: Cigarette Cigarettes Per Day: 15 Smoked in Last 30 Days: No e-Cigarette/Vaping Use: Never Used Use of substances other than those prescribed or required for medical reasons: No Substance Use Type: Marijuana Advance Directives: No Advance Directives Information Provided: Yes Do you have a plan to hurt others: No Plan service: No Meds Allergies Allergy/AdvReac Type Severity Reaction Status Date / Time No Known Allergies Allergy Verified 04/18/24 14:19 Active Medications: Current Medications Acetaminophen (Acetaminophen 325 Mg Tablet) 650 mg PO Q6H PRN PRN Reason: Pain, Mild 1-3,fever,headache Calcium Carbonate (Calcium Carbonate 750 Mg Tab.Chew) 750 mg PO Q4H PRN PRN Reason: Heartburn Glucose (Glucose Gel 15 Gm Gel..Gram.) 15 gm PO Q15M PRN; Protocol PRN Reason: per Hypoglycemia Standing Ord. Vancomycin HCl (Vancomycin/Ns) 2,000 mg in 500 mls @ 250 mls/hr IV ONCE ONE Stop: 04/18/24 17:29 Piperacillin Sod/Tazobactam (Sod 3.375 gm/ Sodium Chloride) 50 mls @ 100 mls/hr IV Q6H JERI Dextrose (D10) 250 mls @ 750 mls/hr IV Q15M PRN; Protocol PRN Reason: per Hypoglycemia Standing Ord. Insulin Human Lispro (Insulin Lispro 100 Unit/Ml 3 Ml Vial) 0 unit SUBCUT QIDACHS PENDING SALE TO [facility]; Protocol Magnesium Hydroxide (Milk Of Magnesia 30 Ml Oral.Susp) 30 ml PO DAILY PRN PRN Reason: Constipation Melatonin (Melatonin 3 Mg Tablet) 6 mg PO BEDTIME PRN PRN Reason: Insomnia Ondansetron HCl (Ondansetron Hcl 4 Mg/2 Ml Vial) 4 mg IVPUSH Q8H PRN PRN Reason: Nausea and Vomiting Oxycodone HCl (Oxycodone Hcl Immed Release 5 Mg Tablet) 10 mg PO Q4H PRN PRN Reason: Pain, Moderate(Pain Scale 4-6) Pharmacy Consult (Consult Rx Vancomycin Dosing) 1 each MISCELLANE DAILY PRN PRN Reason: Consult order Sodium Chloride (0.9 % Sodium Chloride Flush 3 Ml Syringe) [facility] Medications ?Medication ?Instructions ?Recorded ?Confirmed ?Last Taken ?Type enoxaparin 40 mg/0.4 mL 40 mg subcut DAILY 04/05/24 Unknown History subcutaneous syringe gabapentin 100 mg capsule 200 mg PO BEDTIME 04/05/24 Unknown History sodium phosphates 19 gram-7 118 ml VA BEDTIME PRN 04/05/24 Unknown History gram/118 mL enema tuberculin PPD ea intradermal 04/05/24 Unknown History Physical Exam 2 Vital Signs and Narrative: Vital Signs: Last Vital Signs Temp 98.3 F 04/18/24 14:13 Pulse 85 04/18/24 14:13 Resp 18 04/18/24 14:13 BP 176/85 H 04/18/24 14:13 Pulse Ox 93 04/18/24 14:13 O2 Del Method Room Air 04/18/24 14:13 BMI result Body Mass Index 35.8 Const: Other: Awake alert oriented x3 no acute distress Resp: Other: Clear to auscultation bilaterally no rales rhonchi or wheezes Cardio: Other: No S4; positive S1-S2; no S3 murmurs rubs or gallops GI: Other: Soft nontender nondistended normoactive bowel sounds Extrem: Other: Right stump dressing intact (please see admitting pictures for details) Results Labs 04/18/24 15:11 04/18/24 15:11 Labs: Laboratory Results - last 24 hr 04/18/24 15:11 MCV 80.1 MCH 26.2 L MCHC 32.8 RDW 15.0 Plt Count 526 H D MPV 8.1 L Immature Gran % (Auto) 0.5 H Neut % (Auto) 68.8 Lymph % (Auto) 13.6 L [place] % (Auto) 9.0 Eos % (Auto) 7.3 H Baso % (Auto) 0.8 Lymph # (Auto) 1.3 [place] # (Auto) 0.9 Eos # (Auto) 0.7 H Baso # (Auto) 0.1 Abs Immat Gran (auto) 0.05 H Absolute Neuts (auto) 6.7 Absolute Nucleated RBC 0.000 Nucleated RBC % (auto) 0.0 ESR 81 H Anion Gap 11 L Estim Creat Clear Calc 90.3 Estimated GFR > 60 Random Glucose 152 H Lactic Acid 0.9 Calcium 8.7 D Total Bilirubin 0.4 AST 26 ALT 9 Alkaline Phosphatase 212 H C-Reactive Protein 2.32 H Total Protein 6.9 Albumin 3.1 L Imaging Radiologist's Impressions: Impressions Tibia/Fibula X-Ray 04/18/24 14:30 IMPRESSION: Amputation beyond the proximal tibia and fibula with a moderate size stomach. There is gas visualized along the anterior distal. Likely inflammatory process. There is no suspicion for osteomyelitis. 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 Patient states that last week he bumped his right BKA incision on a door by accident and the wound opened up a little bit. Patient states he immediately went to [facility] who told him to do wet to dry dressings and follow up outpatient with his surgeon. Patient states that soon after, during a dressing change, the rest of the wound opened up and ever since it has gotten more red and had more drainage 1.Right stump dehiscence/cellulitis -vancomycin/Zosyn (1) -wet-to-dry dressing as per surgery -NPO after midnight for OR debridement in a.m. 2. Diabetes type 2 -acceptable control on current therapies -2000 calorie ADA diet -lispro correctional scale -adjust as indicated 3. Hypertension -acceptable control on current therapies -adjust as indicated Full code Pneumatics Will require at least 2 midnights going forward of inpatient stay for IV antibiotics to treat stump cellulitis and specialty intervention with surgical debridement. This can not be achieved a lesser acute setting Quality Stroke Does the patient have a stroke diagnosis?: No VTE Prior VTE?: No VTE Risk Level:: Medical - moderate - high VTE Device Contraindication: N/A - Device Ordered VTE Drug Contraindication: Treatment Not Indicated
[2024-04-18] MEDS: 0.9 % Sodium Chloride Flush 3 ML SYRINGE IVFLUSH (16:30)
[2024-04-18] MEDS: vancomycin/NS 2,000 MG/500 ML PLAST..BAG 250 MG IV (16:30)
--- NOTE | 2024-04-18 16:30 | PHA.MEDREC ---
Addendum entered by Jordana Rogers [facility] 04/18/24 16:53: reviewed md contacted Original Note: Pharmacy Consult ? Medication Reconciliation Pharmacy has completed the medication reconciliation. Utilized list from [facility] to confirm med list.
[2024-04-18 16:39] VITALS: BP 148/76; PULSE 74; RESP 16; TEMP 36.3; O2SAT 97
[2024-04-18 16:47] LABS: Glucose, Whole Blood 127 mg/dL (60-115)
--- NOTE | 2024-04-18 18:13 | PHA.PROG ---
Admission Date/Time: April 18, 2024 16:00 Indication: SKIN Weight in k.7 kg Adjusted body weight in Kg: [place] body weight in Kg: Obesity Dosing Indication % IBW: Serum Creatinine - Last 168 Hours 04/18/24 15:11 Creatinine 1.03 Estimated CrCl and GFR - Last 168 Hours 04/18/24 15:11 Estim Creat Clear Calc 90.3 Estimated GFR > 60 Vancomycin Loading Dose: 2000 MG Current Vancomycin Dosing Regimen: 1000 MG Q12H Vancomycin Monitoring using AUC goal of 400 - 600 range with trough as surrogate marker: CRV=452 TROUGH=14.8 Date and Time for next Vancomycin Level to be drawn: 04/19/24 @1500 Pharmacist Comments on Vancomycin Plan: Vancomycin dosing will take advantage of sharing.it as a clinical decision support tool that uses Bayesian modeling to calculate individual patient's pharmacokinetic parameters and forecast the patient's drug concentration time course with the target goal AUC 24 range of 400 - 600 mg/L/hr.
[2024-04-18 18:47] VITALS: BP 169/84; PULSE 70; RESP 16; TEMP 36.5; O2SAT 97
[2024-04-18 21:12] LABS: Glucose, Whole Blood 161 mg/dL (60-115)
[2024-04-18] MEDS: Docusate Sodium 100 MG CAPSULE PO (21:12)
[2024-04-18] MEDS: Ferrous Sulfate 324 MG TABLET.DR PO (21:12)
[2024-04-18] MEDS: busPIRone HCl 5 MG TABLET PO (21:12)
[2024-04-18 21:13] VITALS: BP 167/85; PULSE 83
[2024-04-18] MEDS: Gabapentin 100 MG CAPSULE 200 MG PO (21:13)
[2024-04-18] MEDS: carvediloL 3.125 MG TABLET PO (21:13)
[2024-04-18 21:18] LABS: Glucose, Whole Blood 189 mg/dL (60-115)
[2024-04-18] MEDS: Insulin Glargine,Hum.rec.anlog 100 UNIT/ML 10 ML VIAL 10 UNIT SUBCUT (21:24)
[2024-04-18] MEDS: Insulin Lispro 100 UNIT/ML 3 ML VIAL SUBCUT (21:25)
[2024-04-18] MEDS: oxyCODONE HCl Immed Release 5 MG TABLET 10 MG PO (21:26)
[2024-04-18 22:13] VITALS: BMI 35.1
[2024-04-18 22:17] VITALS: BP 165/88; PULSE 82; RESP 18; TEMP 36.9; O2SAT 95
[2024-04-19] VITALS (9 sets, daily range): BP systolic 154–170; BP diastolic 77–87; PULSE 64–88; RESP 16–18; TEMP 36.2–36.8; O2SAT 92–97
[2024-04-19] MEDS: Piperacillin Sodium/Tazobactam 3.375 GM in 0.9 % Sodium Chloride 50 ML IV ×4 (03:31→22:30)
[2024-04-19] MEDS: 0.9 % Sodium Chloride Flush 3 ML SYRINGE IVFLUSH ×4 (03:33→20:18)
[2024-04-19] MEDS: vancomycin HCL 1,000 MG in 0.9 % Sodium Chloride 250 ML 270 MG IV (04:09)
[2024-04-19 05:51] LABS: MANUAL DIFF FLAG NO
[2024-04-19 05:56] LABS: Basophils Absolute Auto 0.1 X10*3/uL (0.0-0.2); Basophils Percent Auto 0.8 % (0-2); Eosinophils Absolute Auto 0.8 X10*3/uL (0.0-0.4); Eosinophils Percent Auto 9.3 % (0-4); Hematocrit 27.2 % (42.0-52.0); Hemoglobin 8.9 g/dl (14.0-18.0); Imm Gran Abs Auto 0.05 X10*3/uL (0.00-0.03); Imm Gran Pct Auto 0.6 % (0.0-0.4); Lymphocytes Absolute Auto 1.5 X10*3/uL (1.2-4.9); Lymphocytes Percent Auto 17.1 % (20-40); Mean Corpuscular HGB Conc 32.7 g/dl (31.0-36.0); Mean Corpuscular Hemoglobin 26.5 pg (27.0-33.0); Mean Platelet Volume 8.2 fL (9.4-12.4); Monocytes Percent Auto 11.2 % (2-11); Neutrophils Absolute Auto 5.2 x10*3/uL (2.0-8.3); Platelet Count 484 X10*3/uL (160-400); Red Blood Count 3.36 X10*6/uL (4.60-5.80); Red Cell Distribution Width 15.1 % (11.0-16.0); White Blood Count 8.5 X10*3/uL (4.8-10.8)
[2024-04-19 06:17] LABS: Alanine Aminotransferase < 6 U/L (0-40); Albumin Level 2.9 g/dL (3.5-5.0); Alkaline Phosphatase 192 U/L (39-117); Anion Gap 13 (12-20); Aspartate Amino Transferase 29 U/L (5-37); Bilirubin Total 0.6 mg/dL (0.0-1.0); Blood Urea Nitrogen 10 mg/dL (9-16); Calcium 8.5 mg/dL (8.4-10.2); Carbon Dioxide 23 mmol/L (22-29); Chloride 108 mmol/L (96-108); Creatinine Clr Calc Pharmacy 90.2; Estimated Glomerular Filt Rate > 60; Glucose Random 106 mg/dL (60-115); Potassium 3.9 mmol/L (3.3-5.1); Sodium 140 mmol/L (135-145); Total Protein 6.4 g/dL (6.5-8.0)
[2024-04-19] MEDS: amLODIPine Besylate 10 MG TABLET PO (07:36)
[2024-04-19] MEDS: Docusate Sodium 100 MG CAPSULE PO ×2 (07:37→20:18)
[2024-04-19] MEDS: Enoxaparin Sodium 40 MG/0.4 ML SYRINGE SUBCUT (07:37)
[2024-04-19] MEDS: Sennosides 8.6 MG TABLET 17.2 MG PO (07:37)
[2024-04-19] MEDS: Ferrous Sulfate 324 MG TABLET.DR PO ×2 (07:37→20:17)
[2024-04-19] MEDS: carvediloL 3.125 MG TABLET PO ×2 (07:37→20:17)
[2024-04-19] MEDS: busPIRone HCl 5 MG TABLET PO ×2 (07:37→20:17)
[2024-04-19 07:51] LABS: Glucose, Whole Blood 108 mg/dL (60-115)
[2024-04-19 11:31] LABS: Glucose, Whole Blood 98 mg/dL (60-115)
--- NOTE | 2024-04-19 12:22 | HO.ANESPROP2 ---
HPI - Anesthesia Eval Consult details Narrative: debridement BKA PMFSH Active Problems Active Problems: All Active Problems Diabetes type 2 (Acute) Cellulitis (Acute) Dehiscence of wound (Acute) Hyperglycemia (Acute) Sepsis (Acute) Past Medical History Medical History Hx of gangrene HTN (hypertension) Diabetes Family History Family history of problems with anesthesia: No Surgical History Surgical History Status post below knee amputation of right lower extremity History of Problems with Anesthesia: No Social History Social History Household Members: None Housing: Apartment Do you presently have visiting nurse or other home services: No Alcohol intake: current Alcohol intake frequency: holidays/special occasions only Patient Tobacco Use Status: Former Tobacco user Tobacco use type: Cigarette Cigarettes Per Day: 15 e-Cigarette/Vaping Use: Never Used Second Hand Smoke Exposure: No Substance Use Type: Marijuana service: No Meds Allergies Allergy/AdvReac Type Severity Reaction Status Date / Time No Known Allergies Allergy Verified 04/18/24 14:19 Active Medications: Current Medications Acetaminophen (Acetaminophen 325 Mg Tablet) 650 mg PO Q6H PRN PRN Reason: Pain, Mild 1-3,fever,headache Amlodipine Besylate (Amlodipine Besylate 10 Mg Tablet) 10 mg PO DAILY [facility]; Protocol Last Admin: 04/19/24 07:36 Dose: 10 mg Buspirone HCl (Buspirone Hcl 5 Mg Tablet) 5 mg PO BID [facility] Last Admin: 04/19/24 07:37 Dose: 5 mg Calcium Carbonate (Calcium Carbonate 750 Mg Tab.Chew) 750 mg PO Q4H PRN PRN Reason: Heartburn Carvedilol (Carvedilol 3.125 Mg Tablet) 3.125 mg PO BID [facility]; Protocol Last Admin: 04/19/24 07:37 Dose: 3.125 mg Docusate Sodium (Docusate Sodium 100 Mg Capsule) 100 mg PO BID [facility] Last Admin: 04/19/24 07:37 Dose: 100 mg Enoxaparin Sodium (Enoxaparin Sodium 40 Mg/0.4 Ml Syringe) 40 mg SUBCUT DAILY [facility] Last Admin: 04/19/24 07:37 Dose: 40 mg Ferrous Sulfate (Ferrous Sulfate 324 Mg Tablet.Dr) 324 mg PO BID [facility] Last Admin: 04/19/24 07:37 Dose: 324 mg Gabapentin (Gabapentin 100 Mg Capsule) 200 mg PO BEDTIME [facility] Last Admin: 04/18/24 21:13 Dose: 200 mg Glucose (Glucose Gel 15 Gm Gel..Gram.) 15 gm PO Q15M PRN; Protocol PRN Reason: per Hypoglycemia Standing Ord. Piperacillin Sod/Tazobactam (Sod 3.375 gm/ Sodium Chloride) 50 mls @ 100 mls/hr IV Q6H [facility] Last Infusion: 04/19/24 10:23 Dose: Infused Dextrose (D10) 250 mls @ 750 mls/hr IV Q15M PRN; Protocol PRN Reason: per Hypoglycemia Standing Ord. Vancomycin HCl 1,000 mg/ (Sodium Chloride) 270 mls @ 270 mls/hr IV Q12H [facility] Last Infusion: 04/19/24 05:10 Dose: Infused Insulin Glargine (Insulin Glargine,Hum.Rec.Anlog 100 Unit/Ml 10 Ml Vial) 10 unit SUBCUT BEDTIME [facility] Last Admin: 04/18/24 21:24 Dose: 10 unit Insulin Human Lispro (Insulin Lispro 100 Unit/Ml 3 Ml Vial) 0 unit SUBCUT QIDACHS [facility]; Protocol Last Admin: 04/19/24 11:59 Dose: Not Given Magnesium Hydroxide (Milk Of Magnesia 30 Ml Oral.Susp) 30 ml PO DAILY PRN PRN Reason: Constipation Melatonin (Melatonin 3 Mg Tablet) 6 mg PO BEDTIME PRN PRN Reason: Insomnia Metformin HCl (Metformin Hcl 500 Mg Tablet) 500 mg PO BIDWM [facility] Last Admin: 04/19/24 07:04 Dose: Not Given Ondansetron HCl (Ondansetron Hcl 4 Mg/2 Ml Vial) 4 mg IVPUSH Q8H PRN PRN Reason: Nausea and Vomiting Oxycodone HCl (Oxycodone Hcl Immed Release 5 Mg Tablet) 10 mg PO Q6H PRN PRN Reason: pain, moderate to severe Last Admin: 04/18/24 21:26 Dose: 10 mg Pharmacy Consult (Consult Rx Vancomycin Dosing) 1 each MISCELLANE DAILY PRN PRN Reason: Consult order Senna (Sennosides 8.6 Mg Tablet) 17.2 mg PO DAILY [facility] Last Admin: 04/19/24 07:37 Dose: 17.2 mg Sodium Chloride (0.9 % Sodium Chloride Flush 3 Ml Syringe) 3 ml IVFLUSH QSHIFT [facility] Last Admin: 04/19/24 07:22 Dose: 3 ml Home Medications ?Medication ?Instructions ?Recorded ?Confirmed ?Last Taken ?Type enoxaparin 40 mg/0.4 mL 40 mg subcut DAILY 04/05/24 04/18/24 Unknown History subcutaneous syringe gabapentin 100 mg capsule 200 mg PO BEDTIME 04/05/24 04/18/24 Unknown History Saccharomyces boulardii 10 billion 10,000 mmu cells PO TID 04/18/24 04/18/24 Unknown History cell capsule acetaminophen 325 mg tablet 650 mg PO Q4H PRN Fever Or Pain 04/18/24 04/18/24 Unknown History amlodipine 10 mg tablet 10 mg PO DAILY 04/18/24 04/18/24 Unknown History bisacodyl 10 mg rectal suppository 10 mg UT DAILY PRN Constipation 04/18/24 04/18/24 Unknown History buspirone 5 mg tablet 5 mg PO BID 04/18/24 04/18/24 Unknown History carvedilol 3.125 mg tablet 3.125 mg PO BID 04/18/24 04/18/24 Unknown History dextrose 40 % oral gel 15 g PO Q2H PRN Hypoglycemia 04/18/24 04/18/24 Unknown History ferrous sulfate 325 mg (65 mg 325 mg PO BID 04/18/24 04/18/24 Unknown History iron) tablet,delayed release insulin glargine 100 unit/mL 10 unit subcut BEDTIME 04/18/24 04/18/24 Unknown History subcutaneous solution (Lantus U-100 Insulin) magnesium hydroxide 400 mg/5 mL 30 ml PO DAILY PRN Constipation 04/18/24 04/18/24 Unknown History oral suspension (Milk of Magnesia) oxycodone 5 mg tablet 10 mg PO Q6H PRN pain, moderate to 04/18/24 04/18/24 Unknown History severe sennosides 8.6 mg tablet (senna) 17.2 mg PO DAILY Constipation 04/18/24 04/18/24 Unknown History sodium phosphates 19 gram-7 118 ml [place] DAILY PRN Constipation 04/18/24 04/18/24 Unknown History gram/118 mL enema (Fleet Enema) Exam Height,Weight and Vital Signs: Height 5 ft 8 in Weight 104.6 kg Last Vital Signs Temp 98.2 F 04/19/24 07:16 Pulse 88 04/19/24 07:16 Resp 16 04/19/24 07:16 BP 170/83 H 04/19/24 07:16 Pulse Ox 94 04/19/24 07:16 O2 Del Method Room Air 04/19/24 07:16 Pertinent Lab Results Pertinent Lab Results: Laboratory Tests 04/18/24 04/18/24 04/18/24 15:11 16:41 20:43 WBC 9.8 RBC 3.62 L D Hgb 9.5 L Hct 29.0 L D MCV 80.1 MCH 26.2 L MCHC 32.8 RDW 15.0 Plt Count 526 H D MPV 8.1 L Immature Gran % (Auto) 0.5 H Neut % (Auto) 68.8 Lymph % (Auto) 13.6 L [place] % (Auto) 9.0 Eos % (Auto) 7.3 H Baso % (Auto) 0.8 Lymph # (Auto) 1.3 [place] # (Auto) 0.9 Eos # (Auto) 0.7 H Baso # (Auto) 0.1 Abs Immat Gran (auto) 0.05 H Absolute Neuts (auto) 6.7 Absolute Nucleated RBC 0.000 Nucleated RBC % (auto) 0.0 ESR 81 H Sodium 138 Potassium 4.0 Chloride 106 Carbon Dioxide 25 Anion Gap 11 L BUN 9 Creatinine 1.03 Estim Creat Clear Calc 90.3 Estimated GFR > 60 POC Glucose 127 H 161 H Random Glucose 152 H Lactic Acid 0.9 Calcium 8.7 D Total Bilirubin 0.4 AST 26 ALT 9 Alkaline Phosphatase 212 H C-Reactive Protein 2.32 H Total Protein 6.9 Albumin 3.1 L 04/18/24 04/19/24 04/19/24 21:14 05:38 07:22 WBC 8.5 RBC 3.36 L Hgb 8.9 L Hct 27.2 L MCV 81.0 MCH 26.5 L MCHC 32.7 RDW 15.1 Plt Count 484 H MPV 8.2 L Immature Gran % (Auto) 0.6 H Neut % (Auto) 61.0 Lymph % (Auto) 17.1 L [place] % (Auto) 11.2 H Eos % (Auto) 9.3 H Baso % (Auto) 0.8 Lymph # (Auto) 1.5 [place] # (Auto) 1.0 Eos # (Auto) 0.8 H Baso # (Auto) 0.1 Abs Immat Gran (auto) 0.05 H Absolute Neuts (auto) 5.2 Absolute Nucleated RBC 0.000 Nucleated RBC % (auto) 0.0 ESR Sodium 140 Potassium 3.9 Chloride 108 Carbon Dioxide 23 Anion Gap 13 BUN 10 Creatinine 1.02 Estim Creat Clear Calc 90.2 Estimated GFR > 60 POC Glucose 189 H 108 Random Glucose 106 Lactic Acid Calcium 8.5 Total Bilirubin 0.6 AST 29 ALT < 6 Alkaline Phosphatase 192 H C-Reactive Protein Total Protein 6.4 L Albumin 2.9 L 04/19/24 11:18 WBC RBC Hgb Hct MCV MCH MCHC RDW Plt Count MPV Immature Gran % (Auto) Neut % (Auto) Lymph % (Auto) [place] % (Auto) Eos % (Auto) Baso % (Auto) Lymph # (Auto) [place] # (Auto) Eos # (Auto) Baso # (Auto) Abs Immat Gran (auto) Absolute Neuts (auto) Absolute Nucleated RBC Nucleated RBC % (auto) ESR Sodium Potassium Chloride Carbon Dioxide Anion Gap BUN Creatinine Estim Creat Clear Calc Estimated GFR POC Glucose 98 Random Glucose Lactic Acid Calcium Total Bilirubin AST ALT Alkaline Phosphatase C-Reactive Protein Total Protein Albumin Airway Mallampati Class: II TM Dist: >3cm Neck ROM: Full Heart: rrr Lungs: cta Assessment and Plan Assessment Anesthesia Assessment: Anesthesia Plan Discussed Final Anesthetic Review Family History of Problems with Anesthesia: No History of Problems with Anesthesia: No NPO: Yes ASA Class: III Final Preanesthetic Review: No Changes in Pt Med Stat, Meds/Allgs Chart Reviewed, Consent Obtained/Reviewed and Anes Risks/Benef Reviewed Patient Risk: Intermediate Procedure Risk: Low Anesthetic Plan Anesthetic Plan: GA Disposition: Standard PACU
[2024-04-19] MEDS: Lactated Ringers 1,000 ML 80 ML IVCONT (12:31)
--- NOTE | 2024-04-19 13:33 | P.PNIM_ITS ---
Subjective Subjective Date of Service: 04/19/24 Interval History: No acute issues overnight. Remains NPO pending surgical debridement of stump Review of Systems Denies chest pain Denies shortness of breath Denies nausea vomiting diarrhea Denies fever chills Physical Exam 2 Vital Signs: Vital Signs: Last Vital Signs Temp 97.9 F 04/19/24 13:14 Pulse 70 04/19/24 13:24 Resp 16 04/19/24 13:24 BP 162/86 H 04/19/24 13:24 Pulse Ox 94 04/19/24 13:24 O2 Del Method Nasal Cannula 04/19/24 13:24 O2 Flow Rate 2 04/19/24 13:24 BMI result Body Mass Index 35.1 Const: Other: Awake alert oriented x3 no acute distress Resp: Other: Clear to auscultation bilaterally no rales rhonchi or wheezes Cardio: Other: No S4; positive S1-S2; no S3 murmurs rubs or gallops GI: Other: Soft nontender nondistended normoactive bowel sounds Extrem: Other: Right stump dressing intact (please see admitting pictures for details) Objective Data Active Medications Acetaminophen (Acetaminophen 325 Mg Tablet) 650 mg PO Q6H PRN PRN Reason: Pain, Mild 1-3,fever,headache Amlodipine Besylate (Amlodipine Besylate 10 Mg Tablet) 10 mg PO DAILY [facility]; Protocol Last Admin: 04/19/24 07:36 Dose: 10 mg Documented By: KAIN Buspirone HCl (Buspirone Hcl 5 Mg Tablet) 5 mg PO BID [facility] Last Admin: 04/19/24 07:37 Dose: 5 mg Documented By: KAIN Calcium Carbonate (Calcium Carbonate 750 Mg Tab.Chew) 750 mg PO Q4H PRN PRN Reason: Heartburn Carvedilol (Carvedilol 3.125 Mg Tablet) 3.125 mg PO BID [facility]; Protocol Last Admin: 04/19/24 07:37 Dose: 3.125 mg Documented By: KAIN Docusate Sodium (Docusate Sodium 100 Mg Capsule) 100 mg PO BID [facility] Last Admin: 04/19/24 07:37 Dose: 100 mg Documented By: KAIN Enoxaparin Sodium (Enoxaparin Sodium 40 Mg/0.4 Ml Syringe) 40 mg SUBCUT DAILY [facility] Last Admin: 04/19/24 07:37 Dose: 40 mg Documented By: KAIN Fentanyl (Fentanyl Citrate/Pf 100 Mcg/2 Ml Vial) 25 mcg IVPUSH Q5M PRN PRN Reason: Pain, Moderate to Severe (Pain Scale 4-10) Stop: 04/19/24 18:24 Ferrous Sulfate (Ferrous Sulfate 324 Mg Tablet.Dr) 324 mg PO BID [facility] Last Admin: 04/19/24 07:37 Dose: 324 mg Documented By: KAIN Gabapentin (Gabapentin 100 Mg Capsule) 200 mg PO BEDTIME [facility] Last Admin: 04/18/24 21:13 Dose: 200 mg Documented By: ARSALAN Glucose (Glucose Gel 15 Gm Gel..Gram.) 15 gm PO Q15M PRN; Protocol PRN Reason: per Hypoglycemia Standing Ord. Piperacillin Sod/Tazobactam (Sod 3.375 gm/ Sodium Chloride) 50 mls @ 100 mls/hr IV Q6H [facility] Last Infusion: 04/19/24 10:23 Dose: Infused Documented By: KAIN Dextrose (D10) 250 mls @ 750 mls/hr IV Q15M PRN; Protocol PRN Reason: per Hypoglycemia Standing Ord. Vancomycin HCl 1,000 mg/ (Sodium Chloride) 270 mls @ 270 mls/hr IV Q12H [facility] Last Infusion: 04/19/24 05:10 Dose: Infused Documented By: NIK Lactated Ringer's (Lr) 1,000 mls @ 80 mls/hr IVCONT .[id number] [facility] Last Admin: 04/19/24 12:31 Dose: 80 mls/hr Documented By: SILVERIO Insulin Glargine (Insulin Glargine,Hum.Rec.Anlog 100 Unit/Ml 10 Ml Vial) 10 unit SUBCUT BEDTIME [facility] Last Admin: 04/18/24 21:24 Dose: 10 unit Documented By: DANILO Insulin Human Lispro (Insulin Lispro 100 Unit/Ml 3 Ml Vial) 0 unit SUBCUT QIDACHS [facility]; Protocol Last Admin: 04/19/24 11:59 Dose: Not Given Documented By: KAIN Non-Admin Reason: NPO Magnesium Hydroxide (Milk Of Magnesia 30 Ml Oral.Susp) 30 ml PO DAILY PRN PRN Reason: Constipation Melatonin (Melatonin 3 Mg Tablet) 6 mg PO BEDTIME PRN PRN Reason: Insomnia Metformin HCl (Metformin Hcl 500 Mg Tablet) 500 mg PO BIDWM [facility] Last Admin: 04/19/24 07:04 Dose: Not Given Documented By: KAIN Non-Admin Reason: NPO Naloxone HCl (Naloxone Hcl 0.4 Mg/Ml Vial) 0.04 mg IVPUSH Q5M PRN PRN Reason: Excessive sedation or RR < 8 Ondansetron HCl (Ondansetron Hcl 4 Mg/2 Ml Vial) 4 mg IVPUSH Q8H PRN PRN Reason: Nausea and Vomiting Ondansetron HCl (Ondansetron Hcl 4 Mg/2 Ml Vial) 4 mg IVPUSH ONCE PRN PRN Reason: Nausea and Vomiting Stop: 04/19/24 18:24 Oxycodone HCl (Oxycodone Hcl Immed Release 5 Mg Tablet) 10 mg PO Q6H PRN PRN Reason: pain, moderate to severe Last Admin: 04/18/24 21:26 Dose: 10 mg Documented By: DANILO Pharmacy Consult (Consult Rx Vancomycin Dosing) 1 each MISCELLANE DAILY PRN PRN Reason: Consult order Senna (Sennosides 8.6 Mg Tablet) 17.2 mg PO DAILY [facility] Last Admin: 04/19/24 07:37 Dose: 17.2 mg Documented By: KAIN Sodium Chloride (0.9 % Sodium Chloride Flush 3 Ml Sy[facility]) [facility] Last Admin: 04/19/24 07:22 Dose: 3 ml Documented By: KAIN Labs 04/19/24 05:38 04/19/24 05:38 Labs: Laboratory Results - last 24 hr 04/18/24 04/18/24 04/18/24 15:11 16:41 20:43 MCV 80.1 MCH 26.2 L MCHC 32.8 RDW 15.0 Plt Count 526 H D MPV 8.1 L Immature Gran % (Auto) 0.5 H Neut % (Auto) 68.8 Lymph % (Auto) 13.6 L [place] % (Auto) 9.0 Eos % (Auto) 7.3 H Baso % (Auto) 0.8 Lymph # (Auto) 1.3 [place] # (Auto) 0.9 Eos # (Auto) 0.7 H Baso # (Auto) 0.1 Abs Immat Gran (auto) 0.05 H Absolute Neuts (auto) 6.7 Absolute Nucleated RBC 0.000 Nucleated RBC % (auto) 0.0 ESR 81 H Anion Gap 11 L Estim Creat Clear Calc 90.3 Estimated GFR > 60 POC Glucose 127 H 161 H Random Glucose 152 H Lactic Acid 0.9 Calcium 8.7 D Total Bilirubin 0.4 AST 26 ALT 9 Alkaline Phosphatase 212 H C-Reactive Protein 2.32 H Total Protein 6.9 Albumin 3.1 L 04/18/24 04/19/24 04/19/24 21:14 05:38 07:22 MCV 81.0 MCH 26.5 L MCHC 32.7 RDW 15.1 Plt Count 484 H MPV 8.2 L Immature Gran % (Auto) 0.6 H Neut % (Auto) 61.0 Lymph % (Auto) 17.1 L [place] % (Auto) 11.2 H Eos % (Auto) 9.3 H Baso % (Auto) 0.8 Lymph # (Auto) 1.5 [place] # (Auto) 1.0 Eos # (Auto) 0.8 H Baso # (Auto) 0.1 Abs Immat Gran (auto) 0.05 H Absolute Neuts (auto) 5.2 Absolute Nucleated RBC 0.000 Nucleated RBC % (auto) 0.0 ESR Anion Gap 13 Estim Creat Clear Calc 90.2 Estimated GFR > 60 POC Glucose 189 H 108 Random Glucose 106 Lactic Acid Calcium 8.5 Total Bilirubin 0.6 AST 29 ALT < 6 Alkaline Phosphatase 192 H C-Reactive Protein Total Protein 6.4 L Albumin 2.9 L 04/19/24 11:18 MCV MCH MCHC RDW Plt Count MPV Immature Gran % (Auto) Neut % (Auto) Lymph % (Auto) [place] % (Auto) Eos % (Auto) Baso % (Auto) Lymph # (Auto) [place] # (Auto) Eos # (Auto) Baso # (Auto) Abs Immat Gran (auto) Absolute Neuts (auto) Absolute Nucleated RBC Nucleated RBC % (auto) ESR Anion Gap Estim Creat Clear Calc Estimated GFR POC Glucose 98 Random Glucose Lactic Acid Calcium Total Bilirubin AST ALT Alkaline Phosphatase C-Reactive Protein Total Protein Albumin Assessment and Plan (1) Dehiscence of wound: Status: Acute (2) Diabetes type 2: Status: Acute Plan 59 year old male with a history of DM and recent right BKA presenting to the emergency department today with a worsening dehiscenced right BKA wound. Patient states that last week he bumped his right BKA incision on a door by accident and the wound opened up a little bit. Patient states he immediately went to [facility] who told him to do wet to dry dressings and follow up outpatient with his surgeon. Patient states that soon after, during a dressing change, the rest of the wound opened up and ever since it has gotten more red and had more drainage 1.Right stump dehiscence/cellulitis -vancomycin/Zosyn (1) -wet-to-dry dressing as per surgery -NPO after midnight for OR debridement in a.m. 2. Diabetes type 2 -acceptable control on current therapies -2000 calorie ADA diet -lispro correctional scale -adjust as indicated 3. Hypertension -acceptable control on current therapies -adjust as indicated Full code Pneumatics Will require at least 2 midnights going forward of inpatient stay for IV antibiotics to treat stump cellulitis and specialty intervention with surgical debridement. This can not be achieved a lesser acute setting Quality Stroke Does the patient have a stroke diagnosis?: No VTE Prior VTE?: No VTE Risk Level:: Medical - moderate - high VTE Device Contraindication: N/A - Device Ordered VTE Drug Contraindication: Treatment Not Indicated
--- NOTE | 2024-04-19 13:46 | P.OP_ITS ---
Operative Note Operative Note Date of Service: 04/19/24 Narrative: Preoperative diagnosis: [] Several weeks status post right BKA. Trauma to BKA stump. Partial wound dehiscence. Postop diagnosis: [] The same Procedure [] wound debridement, wound VAC placement Surgeon: [] [place] [employer]: [] Arlene Type of Anesthesia: [] General Indication for surgery: [] The lateral half of the incision is open and demonstrates superficial eschar and granulating tissue. No evidence of any infection. Medial aspect of the incision is healing uneventfully. Patient underwent sharp debridement of skin, subcutaneous tissue, and muscle. Findings: [] Patient brought to the operating room, placed on operative table supine position after an adequate level general anesthesia was induced, the right BKA stump was prepped and draped in usual sterile fashion findings were as noted above. The lateral half of the incision was debrided of eschar involving the skin, subcutaneous tissue, and visible muscle. Once this was accomplished, the wound was very copiously irrigated and secured hemostasis. Meticulous placement of a wound VAC with an occlusive dressing was then undertaken. We appropriate dressings applied. Sponge, needle, and instrument counts reported correct. Patient tolerated the procedure well and emerged from anesthesia stable condition. EBL minimal
[2024-04-19 13:59] LABS: Glucose, Whole Blood 109 mg/dL (60-115)
[2024-04-19] MEDS: metFORMIN HCl 500 MG TABLET PO (15:58)
[2024-04-19] MEDS: vancomycin HCL 1,000 MG in 0.9 % Sodium Chloride 250 ML 250 MG IV (16:00)
[2024-04-19 16:10] LABS: Glucose, Whole Blood 141 mg/dL (60-115)
[2024-04-19 16:16] LABS: Vancomycin Random 13.1 mcg/mL (15-20)
[2024-04-19 20:14] LABS: Glucose, Whole Blood 154 mg/dL (60-115)
[2024-04-19] MEDS: Insulin Glargine,Hum.rec.anlog 100 UNIT/ML 10 ML VIAL 10 UNIT SUBCUT (20:16)
[2024-04-19] MEDS: Gabapentin 100 MG CAPSULE 200 MG PO (20:17)
[2024-04-19] MEDS: Insulin Lispro 100 UNIT/ML 3 ML VIAL SUBCUT (20:17)
[2024-04-19] MEDS: oxyCODONE HCl Immed Release 5 MG TABLET 10 MG PO (22:45)
[2024-04-20] MEDS: Piperacillin Sodium/Tazobactam 3.375 GM in 0.9 % Sodium Chloride 50 ML IV ×4 (03:57→20:59)
[2024-04-20 04:00] VITALS: BP 163/87; PULSE 70; RESP 18; TEMP 36.1; O2SAT 96
[2024-04-20] MEDS: vancomycin HCL 1,000 MG in 0.9 % Sodium Chloride 250 ML 250 MG IV (04:28)
[2024-04-20 06:50] LABS: Creatinine Clr Calc Pharmacy 74.2; Estimated Glomerular Filt Rate 59
[2024-04-20 07:38] VITALS: BP 164/83; PULSE 63; RESP 16; TEMP 36.2; O2SAT 94
[2024-04-20 07:39] LABS: Glucose, Whole Blood 107 mg/dL (60-115)
[2024-04-20] MEDS: Ferrous Sulfate 324 MG TABLET.DR PO ×2 (08:24→20:58)
[2024-04-20] MEDS: metFORMIN HCl 500 MG TABLET PO ×2 (08:25→16:53)
[2024-04-20] MEDS: Docusate Sodium 100 MG CAPSULE PO ×2 (08:25→20:58)
[2024-04-20] MEDS: Sennosides 8.6 MG TABLET 17.2 MG PO (08:25)
[2024-04-20] MEDS: busPIRone HCl 5 MG TABLET PO ×2 (08:25→20:58)
[2024-04-20] MEDS: amLODIPine Besylate 10 MG TABLET PO (08:25)
[2024-04-20] MEDS: 0.9 % Sodium Chloride Flush 3 ML SYRINGE IVFLUSH ×3 (08:25→20:59)
[2024-04-20] MEDS: carvediloL 3.125 MG TABLET PO ×2 (08:25→20:58)
[2024-04-20] MEDS: Enoxaparin Sodium 40 MG/0.4 ML SYRINGE SUBCUT (08:28)
--- NOTE | 2024-04-20 08:31 | P.PNGS_ITS ---
Subjective Subjective Date of Service: 04/20/24 Interval history: Patient resting comfortably with no right leg pain. He was asking questions about the wound VAC, expressed understanding. Physical Exam 2 Vital Signs: Vital Signs: Last Vital Signs Temp 97.2 F 04/20/24 07:38 Pulse 63 04/20/24 07:38 Resp 16 04/20/24 07:38 BP 164/83 H 04/20/24 07:38 Pulse Ox 94 04/20/24 07:38 O2 Del Method Nasal Cannula 04/20/24 07:38 O2 Flow Rate 1 04/20/24 07:38 BMI result Body Mass Index 35.1 Const: General: comfortable Nutritional Appearance: well nourished O rientation/consciousness: patient oriented x3 Resp: Effort & Inspection: normal respiratory effort Neuro: General: patient oriented x3 Extrem: Other: Wound VAC in place right BKA stump with good seal. Small amount of serosanguineous drainage noted in vac. Surrounding skin is nonerythematous. Objective Data Active Medications Acetaminophen (Acetaminophen 325 Mg Tablet) 650 mg PO Q6H PRN PRN Reason: Pain, Mild 1-3,fever,headache Amlodipine Besylate (Amlodipine Besylate 10 Mg Tablet) 10 mg PO DAILY [facility]; Protocol Last Admin: 04/19/24 07:36 Dose: 10 mg Documented By: KAIN Buspirone HCl (Buspirone Hcl 5 Mg Tablet) 5 mg PO BID [facility] Last Admin: 04/19/24 20:17 Dose: 5 mg Documented By: AGUSTINA Calcium Carbonate (Calcium Carbonate 750 Mg Tab.Chew) 750 mg PO Q4H PRN PRN Reason: Heartburn Carvedilol (Carvedilol 3.125 Mg Tablet) 3.125 mg PO BID [facility]; Protocol Last Admin: 04/19/24 20:17 Dose: 3.125 mg Documented By: AGUSTINA Docusate Sodium (Docusate Sodium 100 Mg Capsule) 100 mg PO BID [facility] Last Admin: 04/19/24 20:18 Dose: 100 mg Documented By: AGUSTINA Enoxaparin Sodium (Enoxaparin Sodium 40 Mg/0.4 Ml Syringe) 40 mg SUBCUT DAILY [facility] Last Admin: 04/19/24 07:37 Dose: 40 mg Documented By: KAIN Ferrous Sulfate (Ferrous Sulfate 324 Mg Tablet.Dr) 324 mg PO BID [facility] Last Admin: 04/19/24 20:17 Dose: 324 mg Documented By: AGUSTINA Gabapentin (Gabapentin 100 Mg Capsule) 200 mg PO BEDTIME [facility] Last Admin: 04/19/24 20:17 Dose: 200 mg Documented By: AGUSTINA Glucose (Glucose Gel 15 Gm Gel..Gram.) 15 gm PO Q15M PRN; Protocol PRN Reason: per Hypoglycemia Standing Ord. Piperacillin Sod/Tazobactam (Sod 3.375 gm/ Sodium Chloride) 50 mls @ 100 mls/hr IV Q6H [facility] Last Infusion: 04/20/24 04:32 Dose: Infused Documented By: AGUSTINA Dextrose (D10) 250 mls @ 750 mls/hr IV Q15M PRN; Protocol PRN Reason: per Hypoglycemia Standing Ord. Vancomycin HCl 1,000 mg/ (Sodium Chloride) 270 mls @ 270 mls/hr IV Q12H [facility] Last Infusion: 04/20/24 05:33 Dose: Infused Documented By: AGUSTINA Insulin Glargine (Insulin Glargine,Hum.Rec.Anlog 100 Unit/Ml 10 Ml Vial) 10 unit SUBCUT BEDTIME [facility] Last Admin: 04/19/24 20:16 Dose: 10 unit Documented By: AGUSTINA Insulin Human Lispro (Insulin Lispro 100 Unit/Ml 3 Ml Vial) 0 unit SUBCUT QIDACHS [facility]; Protocol Last Admin: 04/19/24 20:17 Dose: 2 unit Documented By: AGUSTINA Magnesium Hydroxide (Milk Of Magnesia 30 Ml Oral.Susp) 30 ml PO DAILY PRN PRN Reason: Constipation Melatonin (Melatonin 3 Mg Tablet) 6 mg PO BEDTIME PRN PRN Reason: Insomnia Metformin HCl (Metformin Hcl 500 Mg Tablet) 500 mg PO BIDWM [facility] Last Admin: 04/19/24 15:58 Dose: 500 mg Documented By: KAIN Ondansetron HCl (Ondansetron Hcl 4 Mg/2 Ml Vial) 4 mg IVPUSH Q8H PRN PRN Reason: Nausea and Vomiting Oxycodone HCl (Oxycodone Hcl Immed Release 5 Mg Tablet) 10 mg PO Q6H PRN PRN Reason: pain, moderate to severe Last Admin: 04/19/24 22:45 Dose: 10 mg Documented By: AGUSTINA Pharmacy Consult (Consult Rx Vancomycin Dosing) 1 each MISCELLANE DAILY PRN PRN Reason: Consult order Senna (Sennosides 8.6 Mg Tablet) 17.2 mg PO DAILY [facility] Last Admin: 04/19/24 07:37 Dose: 17.2 mg Documented By: KAIN Sodium Chloride (0.9 % Sodium Chloride Flush 3 Ml Syringe) 3 ml IVFLUSH QSHIFT [facility] Last Admin: 04/19/24 20:18 Dose: 3 ml Documented By: AGUSTINA Labs 04/19/24 05:38 04/20/24 05:48 Labs: Laboratory Results - last 24 hr 04/19/24 04/19/24 04/19/24 11:18 13:54 14:54 Estim Creat Clear Calc Estimated GFR POC Glucose 98 109 Random Vancomycin 13.1 L 04/19/24 04/19/24 04/20/24 15:58 20:11 05:48 Estim Creat Clear Calc 74.2 Estimated GFR 59 POC Glucose 141 H 154 H Random Vancomycin 04/20/24 07:33 Estim Creat Clear Calc Estimated GFR POC Glucose 107 Random Vancomycin Microbiology Microbiology Results: Microbiology 04/18/24 15:19 Blood Culture - Preliminary Blood - Venous No growth after 24 hours. 04/18/24 15:11 Blood Culture - Preliminary Blood - Venous No growth after 24 hours. Procedures Date of Service Date of Service: 04/20/24 Progress Note: A&P Assessment and plan (1) Dehiscence of wound: Status: Acute Plan 59-year-old male status post right BKA which dehisced after patient struck his leg on a door. He has pod 1 following debridement and wound VAC placement. The wound VAC is intact and functioning properly. Plan dressing change in next 1-2 days. Time Spent With Patient Time: Total time managing care of this patient today ____ minutes. Quality Stroke Does the patient have a stroke diagnosis?: No VTE Prior VTE?: No VTE Risk Level:: Medical - moderate - high VTE Device Contraindication: N/A - Device Ordered VTE Drug Contraindication: Treatment Not Indicated
[2024-04-20 11:31] LABS: Glucose, Whole Blood 160 mg/dL (60-115)
--- NOTE | 2024-04-20 11:34 | MHC.CM.PN ---
PT FROM [facility] WHERE HE WILL RETURN WHEN DCD
[2024-04-20] MEDS: Insulin Lispro 100 UNIT/ML 3 ML VIAL SUBCUT (11:59)
--- NOTE | 2024-04-20 13:43 | HO.PM.IMPN ---
Subjective Subjective Date of Service: 04/20/24 Interval History: Being followed for right stump wound dehiscence Good pain control/wound VAC in place, denies fever, no chills tolerating diet with no nausea, no vomiting or abdominal pain, no acute issues overnight. Review of Systems All other system reviewed and are negative Physical Exam Vital Signs: Vital Signs: Last Vital Signs Temp 97.2 F 04/20/24 07:38 Pulse 63 04/20/24 07:38 Resp 16 04/20/24 07:38 BP 164/83 H 04/20/24 07:38 Pulse Ox 94 04/20/24 07:38 O2 Del Method Nasal Cannula 04/20/24 07:38 O2 Flow Rate 1 04/20/24 07:38 BMI result Body Mass Index 35.1 Const: Other: Gen: in no acute distress HEENT: sclera anicteric, moist mucus membranes Neck: supple Lungs: clear to auscultation bilaterally Heart: regular rate and rhythm, no murmurs Abd: soft, non-tender, non-distended Ext: s/p R BKA, wound VAC in place Skin: warm/well-perfused Neuro: alert and oriented x3, no focal findings Psych: appropriate affect Objective Data Active Medications Acetaminophen (Acetaminophen 325 Mg Tablet) 650 mg PO Q6H PRN PRN Reason: Pain, Mild 1-3,fever,headache Amlodipine Besylate (Amlodipine Besylate 10 Mg Tablet) 10 mg PO DAILY [facility]; Protocol Last Admin: 04/20/24 08:25 Dose: 10 mg Documented By: KARINA Buspirone HCl (Buspirone Hcl 5 Mg Tablet) 5 mg PO BID [facility] Last Admin: 04/20/24 08:25 Dose: 5 mg Documented By: KARINA Calcium Carbonate (Calcium Carbonate 750 Mg Tab.Chew) 750 mg PO Q4H PRN PRN Reason: Heartburn Carvedilol (Carvedilol 3.125 Mg Tablet) 3.125 mg PO BID [facility]; Protocol Last Admin: 04/20/24 08:25 Dose: 3.125 mg Documented By: KARINA Docusate Sodium (Docusate Sodium 100 Mg Capsule) 100 mg PO BID [facility] Last Admin: 04/20/24 08:25 Dose: 100 mg Documented By: KARINA Enoxaparin Sodium (Enoxaparin Sodium 40 Mg/0.4 Ml Syringe) 40 mg SUBCUT DAILY [facility] Last Admin: 04/20/24 08:28 Dose: 40 mg Documented By: KARINA Ferrous Sulfate (Ferrous Sulfate 324 Mg Tablet.Dr) 324 mg PO BID [facility] Last Admin: 04/20/24 08:24 Dose: 324 mg Documented By: KARINA Gabapentin (Gabapentin 100 Mg Capsule) 200 mg PO BEDTIME [facility] Last Admin: 04/19/24 20:17 Dose: 200 mg Documented By: AGUSTINA Glucose (Glucose Gel 15 Gm Gel..Gram.) 15 gm PO Q15M PRN; Protocol PRN Reason: per Hypoglycemia Standing Ord. Piperacillin Sod/Tazobactam (Sod 3.375 gm/ Sodium Chloride) 50 mls @ 100 mls/hr IV Q6H [facility] Last Infusion: 04/20/24 12:02 Dose: Infused Documented By: KARINA Dextrose (D10) 250 mls @ 750 mls/hr IV Q15M PRN; Protocol PRN Reason: per Hypoglycemia Standing Ord. Vancomycin HCl 1,000 mg/ (Sodium Chloride) 270 mls @ 270 mls/hr IV Q12H [facility] Last Infusion: 04/20/24 05:33 Dose: Infused Documented By: AGUSTINA Insulin Glargine (Insulin Glargine,Hum.Rec.Anlog 100 Unit/Ml 10 Ml Vial) 10 unit SUBCUT BEDTIME [facility] Last Admin: 04/19/24 20:16 Dose: 10 unit Documented By: AGUSTINA Insulin Human Lispro (Insulin Lispro 100 Unit/Ml 3 Ml Vial) 0 unit SUBCUT QIDACHS [facility]; Protocol Last Admin: 04/20/24 11:59 Dose: 2 unit Documented By: KARINA Magnesium Hydroxide (Milk Of Magnesia 30 Ml Oral.Susp) 30 ml PO DAILY PRN PRN Reason: Constipation Melatonin (Melatonin 3 Mg Tablet) 6 mg PO BEDTIME PRN PRN Reason: Insomnia Metformin HCl (Metformin Hcl 500 Mg Tablet) 500 mg PO BIDWM [facility] Last Admin: 04/20/24 08:25 Dose: 500 mg Documented By: KARINA Ondansetron HCl (Ondansetron Hcl 4 Mg/2 Ml Vial) 4 mg IVPUSH Q8H PRN PRN Reason: Nausea and Vomiting Oxycodone HCl (Oxycodone Hcl Immed Release 5 Mg Tablet) 10 mg PO Q6H PRN PRN Reason: pain, moderate to severe Last Admin: 04/19/24 22:45 Dose: 10 mg Documented By: AGUSTINA Pharmacy Consult (Consult Rx Vancomycin Dosing) 1 each MISCELLANE DAILY PRN PRN Reason: Consult order Senna (Sennosides 8.6 Mg Tablet) 17.2 mg PO DAILY [facility] Last Admin: 04/20/24 08:25 Dose: 17.2 mg Documented By: KARINA Sodium Chloride (0.9 % Sodium Chloride Flush 3 Ml Syringe) 3 ml IVFLUSH QSHIFT [facility] Last Admin: 04/20/24 08:25 Dose: 3 ml Documented By: KARINA Labs 04/19/24 05:38 04/20/24 05:48 Labs: Laboratory Results - last 24 hr 04/19/24 04/19/24 04/19/24 13:54 14:54 15:58 Estim Creat Clear Calc Estimated GFR POC Glucose 109 141 H Random Vancomycin 13.1 L 04/19/24 04/20/24 04/20/24 20:11 05:48 07:33 Estim Creat Clear Calc 74.2 Estimated GFR 59 POC Glucose 154 H 107 Random Vancomycin 04/20/24 11:27 Estim Creat Clear Calc Estimated GFR POC Glucose 160 H Random Vancomycin Microbiology Microbiology Results: Microbiology 04/18/24 15:19 Blood Culture - Preliminary Blood - Venous No growth after 24 hours. 04/18/24 15:11 Blood Culture - Preliminary Blood - Venous No growth after 24 hours. Assessment and Plan (1) Diabetes type 2: Status: Acute (2) Cellulitis: Status: Acute (3) Dehiscence of wound: Status: Acute Plan 59 year old male with a history of DM and recent right BKA presenting to the emergency department today with a worsening dehiscenced right BKA wound. Patient states that last week he bumped his right BKA incision on a door by accident and the wound opened up a little bit. Patient states he immediately went to [facility] who told him to do wet to dry dressings and follow up outpatient with his surgeon. Patient states that soon after, during a dressing change, the rest of the wound opened up and ever since it has gotten more red and had more drainage 1.Right stump dehiscence/cellulitis -status post wound debridement/wound VAC placement by General surgery on 04/19 -continue IV vancomycin/Zosyn day 2 will discuss further antibiotic treatment with General surgery -seen by General surgery they recommend dressing change in next 1-2 days -normal WBCs, no fevers, blood cultures x2 are negative -patient was at rehab ambulating with walker and wheelchair 2. Diabetes type 2 -stable blood sugars less than 200 -2000 calorie ADA diet -continue Lantus 10 units at bedtime, Glucophage, 500 b.i.d. and lispro correctional scale -adjust as indicated 3. Hypertension -on Coreg 3.125 mg b.i.d. and amlodipine 10 mg, suboptimal control follow blood pressure and adjust as indicated Full code Alejandra Will require continued inpatient hospitalization for IV antibiotics and continued monitoring and treatment by General surgery. Quality Stroke Does the patient have a stroke diagnosis?: No VTE Prior VTE?: No VTE Risk Level:: Medical - moderate - high VTE Device Contraindication: N/A - Device Ordered VTE Drug Contraindication: Treatment Not Indicated
[2024-04-20 15:17] VITALS: BP 140/88; PULSE 72; RESP 18; TEMP 36.2; O2SAT 96
[2024-04-20 15:55] LABS: Glucose, Whole Blood 139 mg/dL (60-115)
[2024-04-20 15:56] LABS: Vancomycin Random 14.7 mcg/mL (15-20)
--- NOTE | 2024-04-20 16:05 | HE.PHANOTE ---
RE: VANCO DOSING Trough came back as 14.7 mg/L which is higher than predicted 13.9 mg/L. Seeing that renal function has worsen slightly, dose is decreased to 750 mg q12h, next trough is scheduled for 04/21/24 @1500.
[2024-04-20] MEDS: vancomycin HCL 750 MG in 0.9 % Sodium Chloride 250 ML 265 MG IV (16:53)
[2024-04-20] MEDS: oxyCODONE HCl Immed Release 5 MG TABLET 10 MG PO (19:13)
[2024-04-20 19:46] VITALS: BP 178/84; PULSE 84; RESP 20; TEMP 36.7; O2SAT 96
[2024-04-20 19:55] VITALS: BP 170/82
[2024-04-20 20:44] LABS: Glucose, Whole Blood 145 mg/dL (60-115)
[2024-04-20] MEDS: Insulin Glargine,Hum.rec.anlog 100 UNIT/ML 10 ML VIAL 10 UNIT SUBCUT (20:58)
[2024-04-20] MEDS: Gabapentin 100 MG CAPSULE 200 MG PO (20:58)
[2024-04-21 04:00] VITALS: BP 158/82; PULSE 75; RESP 18; TEMP 36.8; O2SAT 95
[2024-04-21] MEDS: Piperacillin Sodium/Tazobactam 3.375 GM in 0.9 % Sodium Chloride 50 ML IV ×4 (04:18→21:19)
[2024-04-21] MEDS: vancomycin HCL 750 MG in 0.9 % Sodium Chloride 250 ML 265 MG IV (04:52)
[2024-04-21 06:30] LABS: Estimated Glomerular Filt Rate > 60
[2024-04-21 07:14] LABS: Glucose, Whole Blood 92 mg/dL (60-115)
[2024-04-21 07:36] VITALS: BP 170/86; PULSE 76; RESP 17; TEMP 36.4; O2SAT 94
--- NOTE | 2024-04-21 07:59 | P.PNGS_ITS ---
Subjective Subjective Date of Service: 04/21/24 Interval history: Feels well. Denies any leg pain. Physical Exam 2 Vital Signs: Vital Signs: Last Vital Signs Temp 97.5 F 04/21/24 07:36 Pulse 76 04/21/24 07:36 Resp 17 04/21/24 07:36 BP 170/86 H 04/21/24 07:36 Pulse Ox 94 04/21/24 07:36 O2 Del Method Room Air 04/21/24 07:36 O2 Flow Rate 1 04/20/24 07:38 BMI result Body Mass Index 35.1 Const: General: comfortable, no acute distress and alert Resp: Effort & Inspection: normal respiratory effort Extrem: Other: right BKA site with wound vac in place, no surrounding cellulitis Objective Data Active Medications Acetaminophen (Acetaminophen 325 Mg Tablet) 650 mg PO Q6H PRN PRN Reason: Pain, Mild 1-3,fever,headache Amlodipine Besylate (Amlodipine Besylate 10 Mg Tablet) 10 mg PO DAILY [facility]; Protocol Last Admin: 04/20/24 08:25 Dose: 10 mg Documented By: KARINA Buspirone HCl (Buspirone Hcl 5 Mg Tablet) 5 mg PO BID [facility] Last Admin: 04/20/24 20:58 Dose: 5 mg Documented By: ROCÍO Calcium Carbonate (Calcium Carbonate 750 Mg Tab.Chew) 750 mg PO Q4H PRN PRN Reason: Heartburn Carvedilol (Carvedilol 3.125 Mg Tablet) 3.125 mg PO BID [facility]; Protocol Last Admin: 04/20/24 20:58 Dose: 3.125 mg Documented By: ROCÍO Docusate Sodium (Docusate Sodium 100 Mg Capsule) 100 mg PO BID [facility] Last Admin: 04/20/24 20:58 Dose: 100 mg Documented By: ROCÍO Enoxaparin Sodium (Enoxaparin Sodium 40 Mg/0.4 Ml Syringe) 40 mg SUBCUT DAILY [facility] Last Admin: 04/20/24 08:28 Dose: 40 mg Documented By: KARINA Ferrous Sulfate (Ferrous Sulfate 324 Mg Tablet.) 324 mg PO BID [facility] Last Admin: 04/20/24 20:58 Dose: 324 mg Documented By: ROCÍO Gabapentin (Gabapentin 100 Mg Capsule) 200 mg PO BEDTIME [facility] Last Admin: 04/20/24 20:58 Dose: 200 mg Documented By: ROCÍO Glucose (Glucose Gel 15 Gm Gel..Gram.) 15 gm PO Q15M PRN; Protocol PRN Reason: per Hypoglycemia Standing Ord. Piperacillin Sod/Tazobactam (Sod 3.375 gm/ Sodium Chloride) 50 mls @ 100 mls/hr IV Q6H [facility] Last Infusion: 04/21/24 04:56 Dose: Infused Documented By: ROCÍO Dextrose (D10) 250 mls @ 750 mls/hr IV Q15M PRN; Protocol PRN Reason: per Hypoglycemia Standing Ord. Vancomycin HCl 750 mg/ Sodium (Chloride) 265 mls @ 265 mls/hr IV Q12H [facility] Last Infusion: 04/21/24 05:57 Dose: Infused Documented By: ROCÍO Insulin Glargine (Insulin Glargine,Hum.Rec.Anlog 100 Unit/Ml 10 Ml Vial) 10 unit SUBCUT BEDTIME [facility] Last Admin: 04/20/24 20:58 Dose: 10 unit Documented By: ROCÍO Insulin Human Lispro (Insulin Lispro 100 Unit/Ml 3 Ml Vial) 0 unit SUBCUT QIDACHS [facility]; Protocol Last Admin: 04/20/24 21:00 Dose: Not Given Documented By: ROCÍO Non-Admin Reason: No Insulin Coverage Magnesium Hydroxide (Milk Of Magnesia 30 Ml Oral.Susp) 30 ml PO DAILY PRN PRN Reason: Constipation Melatonin (Melatonin 3 Mg Tablet) 6 mg PO BEDTIME PRN PRN Reason: Insomnia Metformin HCl (Metformin Hcl 500 Mg Tablet) 500 mg PO BIDWM [facility] Last Admin: 04/20/24 16:53 Dose: 500 mg Documented By: KARINA Ondansetron HCl (Ondansetron Hcl 4 Mg/2 Ml Vial) 4 mg IVPUSH Q8H PRN PRN Reason: Nausea and Vomiting Oxycodone HCl (Oxycodone Hcl Immed Release 5 Mg Tablet) 10 mg PO Q6H PRN PRN Reason: pain, moderate to severe Last Admin: 04/20/24 19:13 Dose: 10 mg Documented By: ROCÍO Pharmacy Consult (Consult Rx Vancomycin Dosing) 1 each MISCELLANE DAILY PRN PRN Reason: Consult order Senna (Sennosides 8.6 Mg Tablet) 17.2 mg PO DAILY [facility] Last Admin: 04/20/24 08:25 Dose: 17.2 mg Documented By: KARINA Sodium Chloride (0.9 % Sodium Chloride Flush 3 Ml Syringe) 3 ml IVFLUSH QSHIFT [facility] Last Admin: 04/20/24 20:59 Dose: 3 ml Documented By: ROCÍO Labs 04/19/24 05:38 04/21/24 05:55 Labs: Laboratory Results - last 24 hr 04/20/24 04/20/24 04/20/24 11:27 14:48 15:51 Estim Creat Clear Calc Estimated GFR POC Glucose 160 H 139 H Random Vancomycin 14.7 L 04/20/24 04/21/24 04/21/24 20:38 05:55 07:07 Estim Creat Clear Calc 78.0 Estimated GFR > 60 POC Glucose 145 H 92 Random Vancomycin Microbiology Microbiology Results: Microbiology 04/18/24 15:19 Blood Culture - Preliminary Blood - Venous No growth after 48 hours. 04/18/24 15:11 Blood Culture - Preliminary Blood - Venous No growth after 48 hours. Procedures Date of Service Date of Service: 04/21/24 Progress Note: A&P Assessment and plan (1) Dehiscence of wound: Status: Acute Plan 59-year-old male status post right BKA which dehisced after patient struck his leg on a door. POD #2 s/p debridement and wound VAC placement. The wound VAC is intact and functioning properly, good seal. Plan dressing change tomorrow with possible discharge back to facility if wound healing well. Patient comfortable with plan. Will discuss with case management. Time Spent With Patient Time: Total time managing care of this patient today ____ minutes. Quality Stroke Does the patient have a stroke diagnosis?: No VTE Prior VTE?: No VTE Risk Level:: Medical - moderate - high VTE Device Contraindication: N/A - Device Ordered VTE Drug Contraindication: Treatment Not Indicated
[2024-04-21] MEDS: carvediloL 3.125 MG TABLET PO (08:50)
[2024-04-21] MEDS: busPIRone HCl 5 MG TABLET PO ×2 (08:50→21:19)
[2024-04-21] MEDS: Docusate Sodium 100 MG CAPSULE PO ×2 (08:50→21:19)
[2024-04-21] MEDS: Enoxaparin Sodium 40 MG/0.4 ML SYRINGE SUBCUT (08:50)
[2024-04-21] MEDS: metFORMIN HCl 500 MG TABLET PO ×2 (08:50→17:33)
[2024-04-21] MEDS: Ferrous Sulfate 324 MG TABLET.DR PO ×2 (08:50→21:19)
[2024-04-21] MEDS: Sennosides 8.6 MG TABLET 17.2 MG PO (08:50)
[2024-04-21] MEDS: amLODIPine Besylate 10 MG TABLET PO (08:50)
[2024-04-21] MEDS: 0.9 % Sodium Chloride Flush 3 ML SYRINGE IVFLUSH ×3 (08:52→21:20)
[2024-04-21 11:21] LABS: Glucose, Whole Blood 113 mg/dL (60-115)
--- NOTE | 2024-04-21 13:37 | P.PNIM_ITS ---
Subjective Subjective Date of Service: 04/21/24 Interval History: Being followed for right BKA wound dehiscence Offers no acute complaints denies fever, no chills, good pain control, moving bowels, no nausea, no vomiting, tolerating diet. Review of Systems All other system reviewed and are negative. Physical Exam 2 Vital Signs: Vital Signs: Last Vital Signs Temp 97.5 F 04/21/24 07:36 Pulse 76 04/21/24 07:36 Resp 17 04/21/24 07:36 BP 170/86 H 04/21/24 07:36 Pulse Ox 94 04/21/24 07:36 O2 Del Method Room Air 04/21/24 07:36 O2 Flow Rate 1 04/20/24 07:38 BMI result Body Mass Index 35.1 Const: Other: Gen: in no acute distress HEENT: sclera anicteric, moist mucus membranes Neck: supple Lungs: clear to auscultation bilaterally Heart: regular rate and rhythm, no murmurs Abd: soft, non-tender, non-distended Ext: s/p R BKA, wound VAC in place Skin: warm/well-perfused Neuro: alert and oriented x3, no focal findings Psych: appropriate affect Objective Data Active Medications Acetaminophen (Acetaminophen 325 Mg Tablet) 650 mg PO Q6H PRN PRN Reason: Pain, Mild 1-3,fever,headache Amlodipine Besylate (Amlodipine Besylate 10 Mg Tablet) 10 mg PO DAILY [facility]; Protocol Last Admin: 04/21/24 08:50 Dose: 10 mg Documented By: GRACIA Buspirone HCl (Buspirone Hcl 5 Mg Tablet) 5 mg PO BID [facility] Last Admin: 04/21/24 08:50 Dose: 5 mg Documented By: GRACIA Calcium Carbonate (Calcium Carbonate 750 Mg Tab.Chew) 750 mg PO Q4H PRN PRN Reason: Heartburn Carvedilol (Carvedilol 3.125 Mg Tablet) 3.125 mg PO BID [facility]; Protocol Last Admin: 04/21/24 08:50 Dose: 3.125 mg Documented By: GRACIA Docusate Sodium (Docusate Sodium 100 Mg Capsule) 100 mg PO BID [facility] Last Admin: 04/21/24 08:50 Dose: 100 mg Documented By: GRACIA Enoxaparin Sodium (Enoxaparin Sodium 40 Mg/0.4 Ml Syringe) 40 mg SUBCUT DAILY [facility] Last Admin: 04/21/24 08:50 Dose: 40 mg Documented By: GRACIA Ferrous Sulfate (Ferrous Sulfate 324 Mg Tablet.Dr) 324 mg PO BID [facility] Last Admin: 04/21/24 08:50 Dose: 324 mg Documented By: GRACIA Gabapentin (Gabapentin 100 Mg Capsule) 200 mg PO BEDTIME [facility] Last Admin: 04/20/24 20:58 Dose: 200 mg Documented By: ROCÍO Glucose (Glucose Gel 15 Gm Gel..Gram.) 15 gm PO Q15M PRN; Protocol PRN Reason: per Hypoglycemia Standing Ord. Piperacillin Sod/Tazobactam (Sod 3.375 gm/ Sodium Chloride) 50 mls @ 100 mls/hr IV Q6H [facility] Last Infusion: 04/21/24 11:30 Dose: Infused Documented By: GRACIA Dextrose (D10) 250 mls @ 750 mls/hr IV Q15M PRN; Protocol PRN Reason: per Hypoglycemia Standing Ord. Vancomycin HCl 750 mg/ Sodium (Chloride) 265 mls @ 265 mls/hr IV Q12H [facility] Last Infusion: 04/21/24 05:57 Dose: Infused Documented By: ROCÍO Insulin Glargine (Insulin Glargine,Hum.Rec.Anlog 100 Unit/Ml 10 Ml Vial) 10 unit SUBCUT BEDTIME [facility] Last Admin: 04/20/24 20:58 Dose: 10 unit Documented By: ROCÍO Insulin Human Lispro (Insulin Lispro 100 Unit/Ml 3 Ml Vial) 0 unit SUBCUT QIDACHS [facility]; Protocol Last Admin: 04/21/24 12:06 Dose: Not Given Documented By: GRACIA Non-Admin Reason: No Insulin Coverage Magnesium Hydroxide (Milk Of Magnesia 30 Ml Oral.Susp) 30 ml PO DAILY PRN PRN Reason: Constipation Melatonin (Melatonin 3 Mg Tablet) 6 mg PO BEDTIME PRN PRN Reason: Insomnia Metformin HCl (Metformin Hcl 500 Mg Tablet) 500 mg PO BIDWM [facility] Last Admin: 04/21/24 08:50 Dose: 500 mg Documented By: GRACIA Ondansetron HCl (Ondansetron Hcl 4 Mg/2 Ml Vial) 4 mg IVPUSH Q8H PRN PRN Reason: Nausea and Vomiting Oxycodone HCl (Oxycodone Hcl Immed Release 5 Mg Tablet) 10 mg PO Q6H PRN PRN Reason: pain, moderate to severe Last Admin: 04/20/24 19:13 Dose: 10 mg Documented By: ROCÍO Pharmacy Consult (Consult Rx Vancomycin Dosing) 1 each MISCELLANE DAILY PRN PRN Reason: Consult order Senna (Sennosides 8.6 Mg Tablet) 17.2 mg PO DAILY [facility] Last Admin: 04/21/24 08:50 Dose: 17.2 mg Documented By: GRACIA Sodium Chloride (0.9 % Sodium Chloride Flush 3 Ml Syringe) 3 ml IVFLUSH QSHIFT [facility] Last Admin: 04/21/24 08:52 Dose: 3 ml Documented By: GRACIA Labs 04/19/24 05:38 04/21/24 05:55 Labs: Laboratory Results - last 24 hr 04/20/24 04/20/24 04/20/24 14:48 15:51 20:38 Estim Creat Clear Calc Estimated GFR POC Glucose 139 H 145 H Random Vancomycin 14.7 L 04/21/24 04/21/24 04/21/24 05:55 07:07 11:17 Estim Creat Clear Calc 78.0 Estimated GFR > 60 POC Glucose 92 113 Random Vancomycin Microbiology Microbiology Results: Microbiology 04/18/24 15:19 Blood Culture - Preliminary Blood - Venous No growth after 48 hours. 04/18/24 15:11 Blood Culture - Preliminary Blood - Venous No growth after 48 hours. Assessment and Plan (1) Diabetes type 2: Status: Acute (2) Cellulitis: Status: Acute (3) Dehiscence of wound: Status: Acute Plan 59 year old male with a history of DM and recent right BKA presenting to the emergency department today with a worsening dehiscenced right BKA wound. Patient states that last week he bumped his right BKA incision on a door by accident and the wound opened up a little bit. Patient states he immediately went to [facility] who told him to do wet to dry dressings and follow up outpatient with his surgeon. Patient states that soon after, during a dressing change, the rest of the wound opened up and ever since it has gotten more red and had more drainage 1.Right stump dehiscence/cellulitis -status post wound debridement/wound VAC placement by General surgery on 04/19 -on IV vancomycin/Zosyn day 3 blood cultures x2 negative, normal WBC will DC IV vanco, and transitioned to by mouth Augmentin upon discharge -seen by General surgery wound VAC is intact and functioning properly, good seal, they plan dressing change tomorrow with possible discharge back to facility if wound healing well. -normal WBCs, no fevers, blood cultures x2 are negative -patient was at rehab ambulating with walker and wheelchair 2. Diabetes type 2 -stable blood sugars less than 200 -2000 calorie ADA diet -continue Lantus 10 units at bedtime, Glucophage, 500 b.i.d. and lispro correctional scale 3. Hypertension -on Coreg 3.125 mg b.i.d. and amlodipine 10 mg, suboptimal control will increase Coreg to 6.25 b.i.d. 4. Class 2 obesity will recommend low-calorie diet Full code Lovenox Will require continued inpatient hospitalization for IV antibiotics and continued monitoring and treatment by General surgery. Quality Stroke Does the patient have a stroke diagnosis?: No VTE Prior VTE?: No VTE Risk Level:: Medical - moderate - high VTE Device Contraindication: N/A - Device Ordered VTE Drug Contraindication: Treatment Not Indicated
[2024-04-21 15:20] VITALS: BP 166/85; PULSE 83; RESP 18; TEMP 36.4; O2SAT 93
[2024-04-21] MEDS: oxyCODONE HCl Immed Release 5 MG TABLET 10 MG PO (15:34)
[2024-04-21 16:33] LABS: Glucose, Whole Blood 124 mg/dL (60-115)
[2024-04-21 19:23] VITALS: BP 155/92; PULSE 73; RESP 18; TEMP 36.3; O2SAT 94
[2024-04-21 20:05] LABS: Glucose, Whole Blood 142 mg/dL (60-115)
[2024-04-21] MEDS: carvediloL 6.25 MG TABLET PO (21:18)
[2024-04-21] MEDS: Gabapentin 100 MG CAPSULE 200 MG PO (21:19)
[2024-04-21] MEDS: Insulin Glargine,Hum.rec.anlog 100 UNIT/ML 10 ML VIAL 10 UNIT SUBCUT (21:19)
[2024-04-22 04:00] VITALS: BP 170/92; PULSE 72; RESP 18; TEMP 36.4; O2SAT 95
[2024-04-22] MEDS: Piperacillin Sodium/Tazobactam 3.375 GM in 0.9 % Sodium Chloride 50 ML IV ×2 (04:03→11:37)
[2024-04-22 07:25] LABS: Glucose, Whole Blood 120 mg/dL (60-115)
[2024-04-22 07:30] VITALS: BP 180/86; PULSE 83; RESP 17; TEMP 36.3; O2SAT 96
[2024-04-22] MEDS: Ferrous Sulfate 324 MG TABLET.DR PO (07:39)
[2024-04-22] MEDS: Sennosides 8.6 MG TABLET 17.2 MG PO (07:39)
[2024-04-22] MEDS: busPIRone HCl 5 MG TABLET PO (07:39)
[2024-04-22] MEDS: amLODIPine Besylate 10 MG TABLET PO (07:39)
[2024-04-22] MEDS: metFORMIN HCl 500 MG TABLET PO ×2 (07:39→17:02)
[2024-04-22] MEDS: Docusate Sodium 100 MG CAPSULE PO (07:39)
[2024-04-22] MEDS: Enoxaparin Sodium 40 MG/0.4 ML SYRINGE SUBCUT (07:39)
[2024-04-22] MEDS: carvediloL 6.25 MG TABLET PO (07:40)
[2024-04-22] MEDS: 0.9 % Sodium Chloride Flush 3 ML SYRINGE IVFLUSH (07:40)
--- NOTE | 2024-04-22 10:11 | PM.PNGS ---
Subjective Subjective Date of Service: 04/22/24 Interval history: Feels Physical Exam Vital Signs: Vital Signs: Last Vital Signs Temp 97.4 F 04/22/24 07:30 Pulse 83 04/22/24 07:30 Resp 17 04/22/24 07:30 BP 180/86 H 04/22/24 07:30 Pulse Ox 96 04/22/24 07:30 O2 Del Method Room Air 04/22/24 07:30 O2 Flow Rate 1 04/20/24 07:38 BMI result Body Mass Index 35.1 Const: General: comfortable, no acute distress and alert Resp: Effort & Inspection: normal respiratory effort Skin: General skin exam: no rashes or lesions noted Extrem: Other: right BKA site now with good granulation tissue (90-95%), tunneling beneath anterior flap has decreased in size and is covered with granulation, very little surrunding edema, no erythema; overall wound measures 16cm x 6 cm with 3cm tunneling at anterior flap Objective Data Active Medications Acetaminophen (Acetaminophen 325 Mg Tablet) 650 mg PO Q6H PRN PRN Reason: Pain, Mild 1-3,fever,headache Amlodipine Besylate (Amlodipine Besylate 10 Mg Tablet) 10 mg PO DAILY [facility]; Protocol Last Admin: 04/22/24 07:39 Dose: 10 mg Documented By: JOANIE Buspirone HCl (Buspirone Hcl 5 Mg Tablet) 5 mg PO BID [facility] Last Admin: 04/22/24 07:39 Dose: 5 mg Documented By: JOANIE Calcium Carbonate (Calcium Carbonate 750 Mg Tab.Chew) 750 mg PO Q4H PRN PRN Reason: Heartburn Carvedilol (Carvedilol 6.25 Mg Tablet) 6.25 mg PO BID [facility]; Protocol Last Admin: 04/22/24 07:40 Dose: 6.25 mg Documented By: JOANIE Docusate Sodium (Docusate Sodium 100 Mg Capsule) 100 mg PO BID [facility] Last Admin: 04/22/24 07:39 Dose: 100 mg Documented By: JOANIE Enoxaparin Sodium (Enoxaparin Sodium 40 Mg/0.4 Ml Syringe) 40 mg SUBCUT DAILY [facility] Last Admin: 04/22/24 07:39 Dose: 40 mg Documented By: JOANIE Ferrous Sulfate (Ferrous Sulfate 324 Mg Tablet.Dr) 324 mg PO BID [facility] Last Admin: 04/22/24 07:39 Dose: 324 mg Documented By: JOANIE Gabapentin (Gabapentin 100 Mg Capsule) 200 mg PO BEDTIME [facility] Last Admin: 04/21/24 21:19 Dose: 200 mg Documented By: ROCÍO Glucose (Glucose Gel 15 Gm Gel..Gram.) 15 gm PO Q15M PRN; Protocol PRN Reason: per Hypoglycemia Standing Ord. Piperacillin Sod/Tazobactam (Sod 3.375 gm/ Sodium Chloride) 50 mls @ 100 mls/hr IV Q6H [facility] Last Infusion: 04/22/24 04:48 Dose: Infused Documented By: ROCÍO Dextrose (D10) 250 mls @ 750 mls/hr IV Q15M PRN; Protocol PRN Reason: per Hypoglycemia Standing Ord. Insulin Glargine (Insulin Glargine,Hum.Rec.Anlog 100 Unit/Ml 10 Ml Vial) 10 unit SUBCUT BEDTIME [facility] Last Admin: 04/21/24 21:19 Dose: 10 unit Documented By: ROCÍO Insulin Human Lispro (Insulin Lispro 100 Unit/Ml 3 Ml Vial) 0 unit SUBCUT QIDACHS [facility]; Protocol Last Admin: 04/22/24 07:34 Dose: Not Given Documented By: JOANIE Non-Admin Reason: IV Running Magnesium Hydroxide (Milk Of Magnesia 30 Ml Oral.Susp) 30 ml PO DAILY PRN PRN Reason: Constipation Melatonin (Melatonin 3 Mg Tablet) 6 mg PO BEDTIME PRN PRN Reason: Insomnia Metformin HCl (Metformin Hcl 500 Mg Tablet) 500 mg PO BIDWM [facility] Last Admin: 04/22/24 07:39 Dose: 500 mg Documented By: JOANIE Ondansetron HCl (Ondansetron Hcl 4 Mg/2 Ml Vial) 4 mg IVPUSH Q8H PRN PRN Reason: Nausea and Vomiting Oxycodone HCl (Oxycodone Hcl Immed Release 5 Mg Tablet) 10 mg PO Q6H PRN PRN Reason: pain, moderate to severe Last Admin: 04/21/24 15:34 Dose: 10 mg Documented By: JERUSIA Senna (Sennosides 8.6 Mg Tablet) 17.2 mg PO DAILY [facility] Last Admin: 04/22/24 07:39 Dose: 17.2 mg Documented By: JOANIE Sodium Chloride (0.9 % Sodium Chloride Flush 3 Ml Syringe) 3 ml IVFLUSH QSHIFT [facility] Last Admin: 04/22/24 07:40 Dose: 3 ml Documented By: JOANIE Labs 04/19/24 05:38 04/21/24 05:55 Labs: Laboratory Results - last 24 hr 04/21/24 04/21/24 04/21/24 11:17 16:28 20:01 POC Glucose 113 124 H 142 H 04/22/24 07:15 POC Glucose 120 H Procedures Date of Service Date of Service: 04/22/24 Progress Note: A&P Assessment and plan (1) Dehiscence of wound: Status: Acute (2) Encounter for management of wound VAC: Status: Acute Plan 59-year-old male status post right BKA which dehisced after patient struck his leg on a door. POD #3 s/p debridement and wound VAC placement. Dressing changed, wound clean with good granulation tissue (90-95%). Cont wound vac therapy with dressing change every 3-4 days and as needed. PT consult. Ok for discharge back to facility today if able to arrange for wound vac unit. Can f/u in office in 1 week. Time Spent With Patient Time: Total time managing care of this patient today ____ minutes. Quality Stroke Does the patient have a stroke diagnosis?: No VTE Prior VTE?: No VTE Risk Level:: Medical - moderate - high VTE Device Contraindication: N/A - Device Ordered VTE Drug Contraindication: Treatment Not Indicated
[2024-04-22 10:35] VITALS: PULSE 83; O2SAT 96
[2024-04-22 11:04] LABS: Glucose, Whole Blood 114 mg/dL (60-115)
[2024-04-22] MEDS: oxyCODONE HCl Immed Release 5 MG TABLET 10 MG PO (11:36)
[2024-04-22 13:10] VITALS: BP 170/82
--- NOTE | 2024-04-22 13:57 | PM.DS ---
DS: Providers Provider Date of Service: 04/22/24 Date of admission: 04/18/24 16:00 Date of discharge: 04/22/24 Primary care physician: Staci Lee MD DS: Diagnosis Discharge Diagnosis (1) Dehiscence of wound: Status: Acute (2) Encounter for management of wound VAC: Status: Acute DS: Summary Hospital Course Hospital Course: History of presenting illness: Date of Service: 04/18/24 Chief Complaint: Stump wound dehiscence 59 year old male with a history of DM and recent right BKA presenting to the emergency department today with a worsening dehiscenced right BKA wound. Patient states that last week he bumped his right BKA incision on a door by accident and the wound opened up a little bit. Patient states he immediately went to [facility] who told him to do wet to dry dressings and follow up outpatient with his surgeon. Patient states that soon after, during a dressing change, the rest of the wound opened up and ever since it has gotten more red and had more drainage. States earlier today at rehab he was getting into a closet and struck stump on door which caused worse bleeding prompting presentation to ER. In the emergency room patient was seen in consultation by surgery who plan to take patient to the OR in the a.m. for debridement . Hospital course: 59 year old male with a history of DM and recent right BKA presenting to the emergency department with wound dehiscenced right BKA wound. Patient states that last week he bumped his right BKA incision on a door by accident and the wound opened up a little bit. Patient states he immediately went to [facility] was told to do wet to dry dressings and follow up outpatient with his surgeon. Patient states that soon after, during a dressing change, the rest of the wound opened up and ever since it has gotten more red and had more drainage patient admitted to [facility] with following medical issues 1.Right stump dehiscence/cellulitis underwent wound debridement/wound VAC placement by General surgery on 04/19 and treated with IV vancomycin/Zosyn , blood cultures x2 negative, normal WBC case discussed with general surgery, wound looks clean with no surrounding redness or drainage therefore will discontinue further antibiotics patient afebrile with normal WBC count , recommend wound change as per General surgery , continue pain management with oxycodone and Lovenox for DVT prophylaxis. 2. Diabetes type 2 recommend to continue diabetic diet, Lantus, insulin sliding scale and Glucophage 3. Hypertension noted to have elevated blood pressures on amlodipine 10 mg and Coreg 3.125 mg b.i.d. therefore dose of Coreg increased to 6.25 mg b.i.d. and lisinopril 10 mg added recommend to follow blood pressure closely 4. Class 2 obesity recommend low-calorie diet. Time Attestation Discharge Coordination Time (in mins): 40 Quality: Safe Use of Opioids Does Pt have an Active Cancer Diagnosis on the Problem List?: No Quality: Stroke Does the patient have a stroke diagnosis?: No Physical Exam Vital Signs: Vital Signs: Last Vital Signs Temp 97.4 F 04/22/24 07:30 Pulse 83 04/22/24 10:35 Resp 17 04/22/24 07:30 BP 170/82 H 04/22/24 13:10 Pulse Ox 96 04/22/24 10:35 O2 Del Method Room Air 04/22/24 07:30 O2 Flow Rate 1 04/20/24 07:38 BMI result Body Mass Index 35.1 Const: Other: Gen: in no acute distress HEENT: sclera anicteric, moist mucus membranes Neck: supple Lungs: clear to auscultation bilaterally Heart: regular rate and rhythm, no murmurs Abd: soft, non-tender, non-distended Ext: s/p R BKA, wound VAC in place, no surrounding redness. Skin: warm/well-perfused Neuro: alert and oriented x3, no focal findings Psych: appropriate affect DS: Data Data Completed and Pending Completed studies during hospitalization [Text1]: Procedures Detachment at Right Lower Leg, Mid, Open Approach (03/11/24) Insertion of Infusion Device into Left Brachial Vein, Percutaneous Approach (03/11/24) Labs on day of discharge: Laboratory Results - last 24 hr 04/21/24 04/21/24 04/22/24 16:28 20:01 07:15 POC Glucose 124 H 142 H 120 H 04/22/24 10:58 POC Glucose 114 Preliminary micro results at discharge 04/18/24 15:19 Blood Culture - Preliminary Blood - Venous No growth after 48 hours. 04/18/24 15:11 Blood Culture - Preliminary Blood - Venous No growth after 48 hours. Discharge Plan Discharge Anticipated Discharge Date/Time: 04/22/24 13:52 Patient Disposition: Xfer SNF Discharge Diagnosis: Right BKA stump dehiscence/cellulitis Referrals: Staci Lee MD [Primary Care Provider] - 1 Week Aiden Limon MD [Physician] - 1 Week Discharge Medications: New carvedilol 6.25 mg Tablet 6.25 mg PO BID Qty: 60 0RF Protocol: Hold for SBP/HR < HOLD for SBP < : 90 HOLD for HR < : 60 lisinopril 10 mg tablet 10 mg PO DAILY Qty: 30 0RF Continued buspirone 5 mg Tablet 5 mg PO BID sennosides [senna] 8.6 mg Tablet 17.2 mg PO DAILY acetaminophen 325 mg Tablet 650 mg PO Q4H MDD 3 gm /24 H PRN (Reason: Fever Or Pain) magnesium hydroxide [Milk of Magnesia] 400 mg/5 mL Suspension 30 ml PO DAILY PRN (Reason: Constipation) amlodipine 10 mg Tablet 10 mg PO DAILY bisacodyl 10 mg Suppository 10 mg KS DAILY PRN (Reason: Constipation) Rx Instructions: IF no result from M.O.M Fleet Enema 19-7 gram/118 mL Enema 118 ml KS DAILY PRN (Reason: Constipation) Rx Instructions: If no result from Ducolax Supp. ferrous sulfate 325 mg (65 mg iron) Tablet,Delayed Release (Dr/Ec) 325 mg PO BID insulin glargine [Lantus U-100 Insulin] 100 unit/mL solution 10 unit subcut BEDTIME oxycodone 5 mg tablet 10 mg PO Q6H PRN (Reason: pain, moderate to severe) Rx Instructions: Partial Fill upon patient request. dextrose [Insta-Glucose] 40 % Gel 15 g PO Q2H PRN (Reason: Hypoglycemia) Rx Instructions: until symptoms of low blood sugar are controlled Saccharomyces boulardii 10 billion cell Capsule 10,000 mmu cells PO TID docusate sodium 100 mg Capsule 100 mg PO BID Qty: 90 0RF metformin 500 mg Tablet 500 mg PO BIDWM Qty: 90 0RF insulin lispro [Admelog U-100 Insulin lispro] 100 unit/mL Solution See Protocol subcut QIDACHS Qty: 10 0RF Protocol: Insulin Correction Scale Less than or equal to 110 ---- Give (units): 0 111 to 150 Give (units): 0 151 to 200 Give (units): 2 201 to 250 Give (units): 4 251 to 300 Give (units): 6 301 to 350 Give (units): 8 Greater than 350 Give (units): 10 Call MD if Blood Glucose > : 350 enoxaparin 40 mg/0.4 mL syringe 40 mg subcut DAILY gabapentin 100 mg capsule 200 mg PO BEDTIME Discontinued carvedilol 3.125 mg Tablet 3.125 mg PO BID Rx Instructions: must administer with a meal/food Discharge Orders: Discharge Order (Routine); Ordered 04/22/24 Ordered By: Adelina Ames Diet: Diabetic diet Activity on Discharge: As tolerated Stand Alone Forms: Patient Portal Discharge page Print Language: Frisian Activity Restrictions/Additional Instructions: Wound vac dressing- medium black granufoam dressing, cut in half width troy, has two pieces of sponge on wound, one gently packed into tunneling of anterior flap and then larger sponge that covers wound bed; change every 3-4 days and as needed. Care Plan Goals: No acute infection therefore no further antibiotics needed Noted to have elevated blood pressures therefore dose of Coreg increased to 6.25 mg daily, lisinopril 10 mg added and continue Norvasc 10 mg adjust further dose of antihypertensive depending on blood pressure control Health Concerns: Diabetes mellitus Hypertension Plan of Treatment: Outpatient follow-up with primary care physician and with Dr. Limon general surgery call for appointment Assessment: As above
[2024-04-22] MEDS: lisinopriL 10 MG TABLET PO (15:09)
[2024-04-22 16:04] VITALS: BP 160/90; PULSE 87; RESP 18; TEMP 36.6; O2SAT 99
[2024-04-22 16:28] LABS: Glucose, Whole Blood 121 mg/dL (60-115)
== END 2024-04-22 17:40 | disposition skilled nursing facility (03) | DRG 317 ==
LOC: HO.ED 15:25 → HO.EDOVER 16:09 → HO.S3 19:26
PROVIDERS: Physician Assistant Medical; Surgery; Admitting Provider Hospitalist; Emergency Provider Emergency Medicine; PCP Pediatrics; Visit Provider Hospitalist
PROC: 0KBS0ZZ Excision of Right Lower Leg Muscle, Open Approach (ICD-10-PCS; principal; 2024-04-19 13:00)
DX: T87.81 Dehiscence of amputation stump (principal); I96 Gangrene, not elsewhere classified; L03.115 Cellulitis of right lower limb; I10 Essential (primary) hypertension; E66.812 Obesity, class 2; Z68.35 Body mass index [BMI] 35.0-35.9, adult; Z71.3 Dietary counseling and surveillance; Z79.4 Long term (current) use of insulin; Z79.899 Other long term (current) drug therapy
CPT/HCPCS: 36415; 73590; 80053; 80202; 82565; 82947; 83605; 85025; 85652; 86140; 87040; 97162; 99285; J1650; J2003; J2405; J2543; J2704; J3010; J3370; J7120

== ENCOUNTER → 2024-04-18 14:23 | Outpatient (BNV) | payer OTHER, SELFPAY | PROVIDERS: Emergency Provider Emergency Medicine; PCP Pediatrics; Visit Provider Radiology Diagnostic Radiology | DX: T81.30XA Disruption of wound, unspecified, initial encounter (principal); Z89.511 Acquired absence of right leg below knee | CPT/HCPCS: 73590 ==

== ENCOUNTER → 2024-04-18 16:00 | Outpatient (BNV) | payer OTHER, SELFPAY | PROVIDERS: Admitting Provider Hospitalist; Emergency Provider Emergency Medicine; PCP Pediatrics; Visit Provider Hospitalist | DX: T81.30XA Disruption of wound, unspecified, initial encounter (principal); L03.818 Cellulitis of other sites; E11.69 Type 2 diabetes mellitus with other specified complication | CPT/HCPCS: 99223 ==

== ENCOUNTER → 2024-04-18 16:00 | Outpatient (BNV) | payer OTHER, SELFPAY | PROVIDERS: Admitting Provider Hospitalist; Emergency Provider Emergency Medicine; PCP Pediatrics; Visit Provider Physician Assistant Surgical | DX: T81.30XA Disruption of wound, unspecified, initial encounter (principal); Z46.89 Encounter for fitting and adjustment of other specified devices | CPT/HCPCS: 11043; 11046; 99024 ==

== ENCOUNTER → 2025-04-19 10:05 | Outpatient (BNV) | payer OTHER, SELFPAY | PROVIDERS: PCP Pediatrics; Visit Provider Radiology Diagnostic Radiology | DX: L97.811 Non-pressure chronic ulcer of other part of right lower leg limited to breakdown of skin (principal) | CPT/HCPCS: 73590 ==